=== PATIENT | male | born 1965 | race Caucasian/White ===

== ENCOUNTER 2023-12-10 13:29 | Outpatient (OUT) | payer OTHER, SELFPAY ==
--- NOTE | 2023-12-10 13:36 | ECG_ITS ---
[facility] Test Date: 2023-12-10 Pat Name: MARIA ANTONIA CARTER Department: Room: - Gender: Male Opening [employer]: : 1965 Requested By: NICHOLAS REDDY Order Number: [id number] Reading MD: ERICA GRUBER Measurements Intervals [place] Rate: 71 P: 71 MT: 174 QRS: 76 QRSD: 101 T: 66 QT: 384 QTc: 418 Interpretive Statements SINUS RHYTHM No previous ECG available for comparison Electronically Signed On 12-10-2023 19:00:46 EDT by ERICA GRUBER
--- NOTE | 2023-12-10 14:13 | PM.PRESUREVA ---
History of Present Illness History of Present Illness Chief complaint: BPH with obst Narrative: Patient presents for preadmission testing. Please see HPI from Dr. Abreu dated December 03, 2023. Review of Systems ROS Narrative REVIEW OF SYSTEMS: Negative except as stated in HPI, ten or more systems reviewed. Constitutional: No fever, chills, weakness ENT: No sore throat or epistaxis Cardiovascular: No edema, chest pain, or palpitations Respiratory: No shortness of breath, cough, or wheezing Musculoskeletal: No joint pain or swelling Gastrointestinal: No abdominal pain, constipation, diarrhea, or vomiting Genitourinary: No dysuria or hematuria Neurological: No numbness, tingling, weakness, or headache Psychiatric: No mood changes [facility] Medical History (Updated 12/10/23 @ 13:50 by Cecilia Mckeon NP) GERD (gastroesophageal reflux disease) ?K21.9 - Gastro-esophageal reflux disease without esophagitis (ICD-10) Mitral valve prolapse ?I34.1 - Nonrheumatic mitral (valve) prolapse (ICD-10) Heart murmur ?R01.1 - Cardiac murmur, unspecified (ICD-10) PVC (premature ventricular contraction) ?I49.3 - Ventricular premature depolarization (ICD-10) Near syncope ?R55 - Syncope and collapse (ICD-10) Diabetes ?E11.9 - Type 2 diabetes mellitus without complications (ICD-10) Heart palpitations ?R00.2 - Palpitations (ICD-10) Nocturia ?R35.1 - Nocturia (ICD-10) Herniated lumbar intervertebral disc ?M51.26 - Other intervertebral disc displacement, lumbar region (ICD-10) Back pain ?M54.9 - Dorsalgia, unspecified (ICD-10) Prostatitis ?N41.9 - Inflammatory disease of prostate, unspecified (ICD-10) Incomplete bladder emptying ?R33.9 - Retention of urine, unspecified (ICD-10) Urinary hesitancy ?R39.11 - Hesitancy of micturition (ICD-10) Symptom of bladder outlet obstruction ?N32.0 - Bladder-neck obstruction (ICD-10) Hyperlipidemia ?E78.5 - Hyperlipidemia, unspecified (ICD-10) Elevated PSA ?R97.20 - Elevated prostate specific antigen [PSA] (ICD-10) TIA (transient ischemic attack) ?G45.9 - Transient cerebral ischemic attack, unspecified (ICD-10) BPH with obstruction/lower urinary tract symptoms ?N40.1 - Benign prostatic hyperplasia with lower urinary tract symptoms (ICD-10) ?N13.8 - Other obstructive and reflux uropathy (ICD-10) Surgical History (Updated 12/10/23 @ 13:50 by Cecilia Mckeon NP) History of esophagogastroduodenoscopy (EGD) ?Z98.890 - Other specified postprocedural states (ICD-10) History of appendectomy ?Z90.49 - Acquired absence of other specified parts of digestive tract (ICD-10) H/O colonoscopy ?Z98.890 - Other specified postprocedural states (ICD-10) H/O cystoscopy (12/03/23) ?Z98.890 - Other specified postprocedural states (ICD-10) Family History (Updated 12/10/23 @ 13:50 by Cecilia Mckeon NP) Other Cancer Family history of hypertension Social History (Updated 12/10/23 @ 13:45 by Cecilia Mckeon NP) Within the past year, how often did you have a drink containing alcohol: 2-3 times a week Smoking status: Former smoker Non-prescribed substance use: denies use 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[employer] Highest level of school completed/degree received: high school graduate Meds Home Medications and Allergies Home Medications ?Medication ?Instructions ?Recorded ?Confirmed ?Type aspirin 81 mg tablet,delayed 81 mg PO DAILY 12/10/23 12/10/23 History release (Adult Aspirin Regimen) doxycycline hyclate 100 mg capsule 100 mg PO BID 12/10/23 12/10/23 History empagliflozin 25 mg tablet 25 mg PO DAILY 12/10/23 12/10/23 History (Jardiance) metformin 500 mg tablet 500 mg PO TID 12/10/23 12/10/23 History rosuvastatin 20 mg tablet 20 mg PO DAILY 12/10/23 12/10/23 History tamsulosin 0.4 mg capsule (Flomax) 0.4 mg PO DAILY 12/10/23 12/10/23 History vitamin B complex 1 tab PO DAILY 12/10/23 12/10/23 History Allergies Allergy/AdvReac Type Severity Reaction Status Date / Time Penicillins AdvReac Vomiting Verified 12/10/23 13:39 Exam Narrative Exam Narrative: Constitutional: Awake, alert, comfortable, well-appearing, nontoxic, interactive, vital signs as charted Head: Normocephalic, atraumatic Neck: Supple, normal appearance, normal range of motion, no meningeal signs, no lymphadenopathy Respiratory: No respiratory distress, breath sounds clear Cardiovascular: Regular rate and rhythm, strong and regular heart tones Abdomen: Nontender, normal bowel sounds, soft, no CVA tenderness Musculoskeletal: Normal gait, no swelling or edema Skin: No rashes or induration, no lesions, only visible skin inspected Neuro: No neurological deficits, normal sensation Psychiatric: Oriented ?3, normal affect Assessment and Plan Assessment and Plan (1) BPH with obstruction/lower urinary tract symptoms: Plan Cystoscopy, TURP scheduled with Dr. Abreu December 26, 2023.
[2023-12-10 14:27] LABS: Anion Gap 11.1; BUN Creatinine Ratio 12.4; Calcium 8.9 mg/dL (8.5-10.1); Carbon Dioxide 26.7 mmol/L (21.0-32.0); Chloride 101 mmol/L (98-107); Estimated GFR (African America >60 (>=60 mL/min/1.73m^2); Estimated GFR (Non-African Ame >60 (>=60 mL/min/1.73m^2); Glucose 217 mg/dL (74-106); Potassium 3.8 mmol/L (3.5-5.1); Sodium 135 mmol/L (136-145)
[2023-12-10 14:30] LABS: Basophils Absolute Auto 0.1 10^3/uL (0.0-0.1); Basophils Percent Auto 0.9 % (0.2-2.0); Eosinophils Absolute Auto 0.3 10^3/uL (0.0-0.7); Eosinophils Percent Auto 3.5 % (0.9-7.0); Hematocrit 42.7 % (42.0-54.0); Hemoglobin 15.2 g/dL (14.0-18.0); Immature Granulocytes Abs Auto 0.02 10^3/uL (0.00-0.03); Immature Granulocytes Pct Auto 0.2 % (0.0-0.5); Lymphocytes Absolute Auto 2.2 10^3/uL (1.2-3.8); Lymphocytes Percent Auto 26.4 % (20.5-60.0); Mean Corpuscular HGB Conc 35.6 g/dL (29.9-35.2); Mean Corpuscular Hemoglobin 33.1 pg (25.9-34.0); Mean Platelet Volume 9.4 fL (9.5-13.5); Monocytes Absolute Auto 0.7 10^3/uL (0.3-0.8); Platelet Count 172 10^3/uL (150-450); Red Blood Count 4.59 10^6/uL (4.70-6.10); Red Cell Distribution Width 12.1 % (11.0-15.0); White Blood Count 8.2 10^3/uL (4.0-11.0)
[2023-12-10 14:38] LABS: INR 0.97; Partial Thromboplastin Time 28.3 sec (22.3-36.2); Prothrombin Time 10.3 sec (9.0-11.6)
== END 2023-12-10 13:30 | disposition home or self-care (01) ==
LOC: PST 13:33
PROVIDERS: Family Provider Emergency Medicine; PCP Internal Medicine; Visit Provider Urology
DX: Z01.810 Encounter for preprocedural cardiovascular examination (principal); Z01.812 Encounter for preprocedural laboratory examination; Z01.818 Encounter for other preprocedural examination; N40.1 Benign prostatic hyperplasia with lower urinary tract symptoms; N13.8 Other obstructive and reflux uropathy
CPT/HCPCS: 80048; 85025; 85610; 85730; 93005; G0463

== ENCOUNTER 2023-12-26 12:56 | Day surgery (SDC) | payer OTHER, SELFPAY ==
[2023-12-10 14:00] VITALS: BP 132/81; PULSE 69; TEMP 36.4; O2SAT 98; BMI 27.3
[2023-12-26] VITALS (10 sets, daily range): BP systolic 103–143; BP diastolic 65–91; PULSE 66–90; TEMP 36.2–37; O2SAT 95–98; BMI 26.3
--- OUTSIDE RECORDS SUMMARY | 2023-12-26 13:02 | XMS_ITS | CCD ---
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 Name Role Phone Juve Garza Primary Care Provider [phone] Christoph Wahl Attending Provider Maria Antonia FELIX Primary Care Physician [phone] JEREMIAS TORO Attending Unavailable Juno REDDY Attending Unavailable Juno REDDY Referring Unavailable Juno REDDY Admitting Unavailable Maria Antonia FELIX Referring Unavailable Maria Antonia FELIX Admitting Unavailable JANETH, Maria Antonia Tellez Attending Unavailable JANETH, Maria Antonia Tellez Admitting Unavailable JANETH, Maria Antonia Tellez Attending Unavailable Jonatan Bowers Consulting Unavaila ble ALAKAI, Alaa Admitting Unavailable ALAHMAD, Kay Attending Unavailable MD Jonatan Bowers Consulting Unava ilJonatan Pires Consulting Unavaila ble Montrose, Gallito Consulting Unavailable Montrose, Gallito Consulting Unavailable Montrose, Gallito Consulting Unavailable Montrose, Gallito Consulting Unavailable Montrose, Gallito Consulting Unavailable Montrose, Gallito Consulting Unavailable Montrose, Gallito Consulting Unavailable Montrose, Gallito Consulting Unavailable Montrose, Gallito Consulting Unavailable Maria Antonia FELIX Admitting Unavailable Juno REDDY Attending Unavailable Emy Harrison Attending Unavailable Maria Antonia FELIX Referring Unavailable Juno REDDY Attending Unavailable Maria Antonia FELIX Attending Unavailable Maria Antonia FELIX Attending Unavailable Juno REDDY Attending Unavailable Juno REDDY Attending Unavailable Juno REDDY Referring Unavailable Juno REDDY Admitting Unavailable Unavailable Unavailable Unavailable Allergies Allergy Classification Reported Allergen(s) Allergy Type Date of Onset Reaction(s) Facility (16 sources) Penicillins; Translations: [penicillins] Allergy to substance 1 Vomiting (disorder) [facility] (1 source) Amoxicillin; Translations: [amoxicillin] Drug Allergy [facility] Repository Medications Current Medications Medication Drug Class(es) Dates Sig (Normalized) Sig (Original) aspirin 81 mg delayed release oral tablet (7 sources) Platelet Aggregation Inhibitor, Nonsteroidal Anti-inflammatory Drug Start: 04-20-2023 take 1 tablet by mouth once daily aspirin 81 mg Oral EC Tab 81 mg = 1 tab(s), Oral, Daily, Refills(s) 0 Start Date: 04/20/23 Status: Ordered cyclobenzaprine hydrochloride 10 mg oral tablet (7 sources) Muscle Relaxant Start: 01-06-2020 take 1 tablet by mouth three times daily as needed for muscle spasms cyclobenzaprine 10 mg Tab 10 mg = 1 tab(s), Oral, TID, PRN for spasm, # 50 tab(s), Refills(s) 0, Pharmacy: [id number], 177, cm, 01/06/20 14:45:00 EDT, Height/Length Dosing, 88.8, kg, 01/06/20 14:45:00 EDT, Weight Dosing Start Date: 01/06/20 Status: Ordered doxycycline hyclate 100 mg oral capsule (2 sources) Tetracycline-class Drug Start: 12-03-2023 take 1 capsule by mouth twice daily doxycycline hyclate 100 mg Cap 100 mg = 1 cap(s), Oral, BID, # 60 cap(s), Refills(s) 0, Pharmacy: [facility], 177, cm, 12/03/23 14:32:00 EDT, Height/Length Dosing, 79.2, kg, 12/03/23 14:32:00 EDT, Weight Dosing Start Date: 12/03/23 Status: Ordered empagliflozin 25 mg oral tablet (12 sources) Sodium-Glucose Cotransporter 2 Inhibitor Start: 08-18-2021 take 1 tablet by mouth once daily in the morning Jardiance 25 mg oral tablet 25 mg = 1 tab(s), Oral, qAM Start Date: 08/18/21 Status: Ordered ibuprofen 600 mg oral tablet (9 sources) Nonsteroidal Anti-inflammatory Drug Start: 11-04-2019 take 1 tablet by mouth every six hours as needed for pain ibuprofen 600 mg Tab 600 mg = 1 tab(s), Oral, q6hr, PRN as needed for pain Start Date: 11/04/19 Status: Ordered metFORMIN hydrochloride 500 mg oral tablet (15 sources) Biguanide Start: 05-30-2020 take 2 doses by mouth twice daily in the morning, then take 1 dose by mouth at bedtime Metformin Active 500 MG PO Twice daily May 30, 2020 8:59am 2 pills in AM 1 pill at HS Start: 02-24-2019 take 1 tablet by johnny th three times daily metformin 500 mg Tab 500 mg = 1 tab(s), Oral, TID, Refills(s) 0 Start Date: 02/24/19 Status: Ordered rosuvastatin calcium 20 mg oral tablet (12 sources) HMG-CoA Reductase Inhibitor Start: 08-18-2021 take 1 tablet by mouth once daily at bedtime Crestor 20 mg Tab 20 mg = 1 tab(s), Oral, Once a day (at bedtime) Start Date: 08/18/21 Status: Ordered tamsulosin hydrochloride 0.4 mg oral capsule (8 sources) alpha-Adrenergic Jessica Start: 07-12-2023 take 1 capsule by mouth once daily Flomax 0.4 mg Cap 0.4 mg = 1 cap(s), Oral, Daily, # 90 cap(s), Refills(s) 3, Pharmacy: [facility], 177, cm, 07/05/23 14:31:00 EDT, Height/Length Dosing, 79.2, kg, 07/05/23 14:31:00 EDT, Weight Dosing Start Date: 07/12/23 Status: Ordered Start: 04-20-2023 End: 04-20-2023 Flomax 0.4 mg Cap 0.4 mg = 1 cap(s), Cap, Oral, Start date 04/20/23 9:00:00 AM EST, 04/19/23 21:14:00 EST Start Date: 04/20/23 Stop Date: 04/20/23 Status: Completed Start: 07-23-2022 take 1 capsule by mo [facility] once daily Flomax 0.4 mg Cap 0.4 mg = 1 cap(s), Oral, Daily, # 30 cap(s), Refills(s) 11, Pharmacy: [id number], 177, cm, 07/23/22 9:21:00 EDT, Height/Length Dosing, 83.5, kg, 07/23/22 9:21:00 EDT, Weight Dosing Start Date: 07/23/22 Status: Ordered Completed/Discontinued Medications Medication Drug Class(es) Dates Sig (Normalized) Sig (Original) ciprofloxacin 500 mg oral tablet (2 sources) Quinolone Antimicrobial Start: 10-17-2023 take 1 tablet by mouth once daily Cipro 500 mg Tab 500 mg = 1 tab(s), Oral, Daily, Take 1 tablet the day before the procedure and 1 tablet after the procedure, # 2 tab(s), Refills(s) 0, Pharmacy: [facility], 177, cm, 09/27/23 14:39:00 EDT, Height/Length Dosing, 79.2, kg, 09/27/23 14:39:00 EDT, Weight Dosing Start Date: 10/17/23 Status: Ordered Insulin Lispro (2 sources) Insulin Analog Start: 04-20-2023 End: 04-20-2023 Insulin Lispro Sliding Scale 0-10 Unit(s), Injection-Insuli n, SubCutaneous, Start date 04/20/23 7:30:00 AM EST Start Date: 04/20/23 Stop Date: 04/20/23 Status: Completed Start: 04-19-2023 End: 04-19-2023 Insulin Lispro Sliding Scale 0-10 Unit(s), Injection-Insulin, SubCutaneous, Start date 04/19/23 4:30:00 PM EST Start Date: 04/19/23 Stop Date: 04/19/23 Status: Completed Problems Problem Classification Problem Date Documented Date Episodic/Chronic Anal and rectal conditions (2 sources) Rectal pain 02-24-2019 Episodic Cardiac dysrhythmias (15 sources) Palpitations; Translations: [Palpitations] Onset: 2 12-05-2020 Episodic Diabetes mellitus with complications (3 sources) Complication due to diabetes mellitus; Translations: [Type 2 diabetes mellitus with other specified complication] Onset: 2 Chronic Diabetes mellitus without complication (14 sources) Type 2 diabetes mellitus 02-24-2019 Chronic Diseases of mouth; excluding dental (6 sources) Lesion of oral mucosa; Translations: [Unspecified lesions of oral mucosa] Onset: 4 Episodic Disorders of lipid metabolism (17 sources) Mixed hyperlipidemia; Translations: [Mixed hyperlipidemia] Onset: 2 Chronic Esophageal disorders (2 sources) Gastroesophageal reflux disease; Translations: [Gastro-esophageal reflux disease without esophagitis] Chronic Genitourinary symptoms and ill-defined conditions (16 sources) Nocturia; Translations: [Poor stream of urine] 02-24-2019 Episodic Hyperplasia of prostate (18 sources) Benign prostatic hypertrophy with outflow obstruction; Translations: [Benign prostatic hyperplasia with lower urinary tract symptoms] Onset: 2 02-24-2019 Chronic Other circulatory disease (6 sources) History of transient ischemic attack; Translations: [Personal history of transient ischemic attack (TIA), and cerebral infarction without residual deficits] Onset: 4 Episodic Other connective tissue disease (2 sources) Spasm; Translations: [Other muscle spasm] Onset: 4 Episodic Other connective tissue disease (5 sources) Cramp in lower limb 07-05-2023 Episodic Other diseases of kidney and ureters (2 sources) Urinary tract obstruction; Translations: [Other obstructive and reflux uropathy] Onset: 4 Episodic Other nutritional; endocrine; and metabolic disorders (1 source) Disorder of bilirubin metabolism; Translations: [Other disorders of bilirubin metabolism] Onset: 4 Chronic Other nutritional; endocrine; and metabolic disorders (5 sources) Hyperbilirubinemia 07-05-2023 Chronic Other nutritional; endocrine; and metabolic disorders (7 sources) Overweight in adulthood with body mass index of 25 or more but less than 30; Translations: [Body mass index (BMI) 28.0-28.9, adult] Onset: 2 Episodic Other nutritional; endocrine; and metabolic disorders (6 sources) Overweight; Translations: [Overweight] Onset: 4 Episodic Other screening for suspected conditions (not mental disorders or infectious disease) (4 sources) Raised prostate specific antigen; Translations: [Elevated prostate specific antigen [PSA]] Onset: 4 Episodic Screening and history of mental health and substance abuse codes (14 sources) Ex-smoker 02-24-2019 Episodic Spondylosis; intervertebral disc disorders; other back problems (16 sources) Intervertebral disc prolapse; Translations: [Other intervertebral disc displacement, lumbar region] Onset: 4 Chronic Spondylosis; intervertebral disc disorders; other back problems (20 sources) Low back pain; Translations: [Spasm of muscle of lower back] 04-12-2021 Episodic Transient cerebral ischemia (1 source) Transient cerebral ischemia; Translations: [Transient cerebral ischemic attack, unspecified] Onset: Chronic Unclassified (14 sources) Patient encounter status 01-31-2021 Results Test Name Value Interpretation Reference Range Facility Main OR Intraoperative Recor don 12-03-2023 Main OR Intraoperative Record Main OR Intraoperative Record IntraOp Document Type FTURO Summary Primary Physician: Juno REDDY MD Finalized Date/Time: 12/03/23 15:04:46 Pt. Name: MARIA ANTONIA BALL Danielle Rahman/Sex: 1965 Male Med Rec #: [id number] Physician: Juno REDDY MD Financial #: [id number] Pt. Type: O Room/Bed: / Admit/Disch: 12/03/23 13:54:49 - Institution: Case Times FTURO Entry 1 Patient Times In Room 12/03/23 14:36:00 Out Room 12/03/23 14:57:00 Procedure Times Start 12/03/23 14:48:00 Stop 12/03/23 14:53:00 Anesthesia Times Last Modified By: Jody PEREZ, Raysa Zuniga 12/03/23 14:53:33 Case Attendance FTURO Entry 1 Entry 2 Entry 3 Case Attendee Juno REDDY MD, RN, Raysa Aldana CST, Chani Zuniga Role Performed Surgeon - Primary Melting Operator - Primary Scrub - Primary Time In 12/03/23 14:36:00 12/03/23 14:36:00 12/03/23 14:36:00 Time Out 12/03/23 14:57:00 12/03/23 14:57:00 12/03/23 14:57:00 Procedure CYSTOSCOPY LOCAL(.) CYSTOSCOPY LOCAL(.) CYSTOSCOPY LOCAL(.) Comments Last Modified By: Jody PEREZ, Raysa Vera RN, Raysa Vera RN, Raysa Zuniga 12/03/23 Clementine Zuniga 12/03/23 Clementine Zuniga 12/03/23 14:53:37 14:53:37 14:53:37 Surgical Procedures FTURO Entry 1 Procedure Description Procedure CYSTOSCOPY LOCAL Modifiers . Surgeon Description CYSTOSCOPY Primary Procedure Yes Primary Surgeon Juno REDDY MD Start 12/03/23 14:48:00 Stop 12/03/23 14:53:00 Anesthesia Type Local Surgical Service Urology Wound Class 2 - Clean-Contaminated Last Modified By: Raysa Vera RN 12/03/23 14:53:36 General Case Data FTURO Pre-Care Text: Classifies surgical wound, implements aseptic technique, initiates traffic control Entry 1 Case Information OR URO 1 FT Case Level None Wound Class 2 - Clean-Contaminated Specialty Urology Preop Diagnosis BPH WITH OBSTRUCTION, Postop Same As Preop Yes NOCTURIA, ELEVATED PSA Postop Diagnosis BPH WITH OBSTRUCTION, Outcomes Met? Yes NOCTURIA, ELEVATED PSA Last Modified By: Raysa Vera RN 12/03/23 14:37:20 Post-Care Text: The patient is free from signs and symptoms of infection EU IntraOp - FTURO Pre-Care Text: Implements protective measures prior to operative or invasive procedure, confirms identity before the operative or invasive procedure, verifies operative procedure, surgical site, and laterality Entry 1 EU Perioperative Protocols Procedure(s) CYSTOSCOPY LOCAL(.) Patient Identity Birthday Verified (select at least 2): Consents / H and P H&P, Surgery/Procedure Operative Site N/A Verified Consent Marking Verified Surgical Site Yes Laterality Verified n/a Verified Procedure Verified Yes Correct Patient Yes Position Verified Availability Equipment, Medication Time Out BARRY FELDMAN, Juno Gomes, Verified (If Participants Jody PEREZ, Raysa Applicable) Jovan Strickland CST, Kimberly A Time Out Complete 12/03/23 14:47:00 Allergies Reviewed? Yes Allergies Reviewed Self/Patient With Body Position Supine Prep Area PENIS Prep Agents Betadine Solution Skin. Condition Unable to Visualize Description PARTIALLY CLOTHED Additional None Specimens Collected Vitals - EU Blood Pressure 130/79 Pulse 86 bpm Respirations 18 br/min SPO2 97 % I&O - EU Outcomes Met? Yes Last Modified By: Raysa Vera RN 12/03/23 14:47:36 Post-Care Text: The patient is free from signs and symptoms of injury caused by extraneous objects Sign Out FTURO Entry 1 Before Patient Leaves OR Nurse verbally Yes Nurse verbally Yes confirms with the confirms with the team the name of team that the procedure(s) instrument, sponge, recorded and needle counts are correct (or N/A) Nurse verbally n/a Nurse verbally n/a confirms with the confirms with the team how the team whether there specimen is labeled are any equipment (including patient problems to be name), if applicable addressed Sign Out Complete 12/03/23 14:53:00 Last Modified By: Raysa Vera RN 12/03/23 14:53:35 Case Comments Finalized By: Raysa Vera RN Document Signatures Signed By: Rasya Vera RN 12/03/23 14:53 Raysa Vera RN 12/03/23 15:04 [facility] Main OR Preoperative Recordo n 12-03-2023 Main OR Preoperative Record Main OR Preoperative Record Holding Area Document Type FTURO Summary Primary Physician: Juno REDDY MD Finalized Date/Time: 12/03/23 14:49:34 Pt. Name: MARIA ANTONIA BALL Danielle Shelton./Sex: 1965 Male Med Rec #: [id number] Physician: Juno REDDY MD Financial #: [id number] Pt. Type: O Room/Bed: / Admit/Disch: 12/03/23 13:54:49 - Institution: Case Times Holding FTURO Pre-Care Text: Verifies consent for planned procedure, identifies individual values and wishes concerning care, includes family members in perioperative teaching Secures patient's records' belongings, and valuables, maintains patient's dignity and privacy, and maintains patient confidentiality Entry 1 In Holding 12/03/23 14:28:00 Outcomes Met? Yes Last Modified By: Esther Sanders LPN 12/03/23 14:29:05 Post-Care Text: The patient participates in decisions affecting his or her perioperative plan of care The patient's right to privacy is maintained Surgery Checklist FTURO Entry 1 Patient Birthday, ID Band Procedure History and Physical, Identification: Check, Patient Verification: Surgical Consent, With Participation Patient NPO after Midnight: n/a Limitations: up ad juanita Complaints of Pain: No Skin Integrity Intact, [place], Warm, & Dry Vitals - EU Blood Pressure 130/79 Pulse 86 bpm Respirations 18 br/min SPO2 97 % Additional None RN Reviewed Yes Specimens Collected Last Modified By: Raysa Vera RN 12/03/23 14:36:43 Finalized By: Raysa Vera RN Document Signatures Signed By: Tommy Esther LOPES [place] 12/03/23 14:31 Raysa Vera RN 12/03/23 14:36 Jody PEREZ, Raysa Zuniga 12/03/23 14:49 [facility] Operative Reporton Operative Report Operative Report Patient: MARIA ANTONIA BALL Age: 58 years Sex: Male : 1965 Associated Diagnoses: None Author: Juno REDDY MD Procedure Operative Information Details: Date/ Time: 12/03/2023 15:05:00. Pre-Op Dx: BPH w/ LUTS - N40.1, Nocturia - R35.1, Incomplete Bladder Emptying - R39.14, Weak stream, Hesitancy. Post-Op Dx: Same. Anesthesia Type: Local. Procedure: Local Cystoscopy. Complications: None. Risks/Benefits/Inform ed Consent: Surgical risks, benefits, details of the procedure have been explained to the patient, Full informed consent has been obtained. Intraoperative Information Prepped: Patient is brought back to the endoscopy suite, Patient is placed in supine position, Patient prepped in the usual fashion with Betadine solution, 2% Xylocaine Jelly is placed per Urethra, After waiting several minutes the Cystoscope is introduced. The Urethra is: Normal. The Prostatic Urethra is: Obstructed, Friable. Obstructing lateral lobes. Moderate median lobe. The Bladder is: Abnormal, Trabeculated (Severe (3), Thick trabeculation with deep diverticuli diffusely. No bladder tumors). The ureteral orifices: Show efflux of clear urine. Devices Implanted: None. Removal: Cystoscope is removed, The patient tolerated it well. Postoperative Information Discharge: Patient is discharged home with antibiotic coverage, Follow up arranged. He will start doxycycline 100 mg twice daily for 1 month. He will get urodynamics testing done. We will plan for a TURP in about a month or so.. [facility] Comment on above: Result Comment: Elec tronically Signed By: Juno REDDY MD\.br\Date and Time Signed: 12/03/23 15:07 EDT Reminderson 10-09-2023 Reminders Reminders From: Trina Melchor To: LAZARO Harrison; Sent: 10/09/2023 15:02:55 EDT Show up: 04/10/2024 14:02:00 EST Subject: APPT/PSA Due Date/Time: 06/08/2024 15:02:00 EDT Pt needs scheduled for f/u w/PSA in June 2024. [facility] Urology Office/Clinic Noteon 09-30-2023 Urology Office/Clinic Note Urology Office/Clinic Note Chief Complaint new patient HPI Staff 58 year old male referred by Dr. Felix for BPH w/LUTS. Patient last seen IO 02/24/19 due to Nocturia, bph with luts, Weak urine stream, Rectum pain PSA 3.0 done 06/22/23 S/P cysto 03/18/2019 Patient has been on flomax for years, states he has not noticed a big difference with urination, does experience dizziness. Stated that he did try to stop it a few years ago and got to the point where one night he could not urinate at all almost. Restarted flomax and did help him empty. Dysuria: no Incomplete bladder emptying: no Hematuria: no Frequency: no Urgency: no Nocturia:2x Stream: slow weak stream mostly at night Leaking: no Post void dripping: no Wearing pads/ Depends: no Urge incontinence: no Stress incontinence: no Incontinence without Sensory Awareness: no Abdominal pain: no Flank pain: no Sexual complaints: no History of Present Illness I have reviewed and verified the staff HPI to be accurate for this encounter. Portions of this record may have been created with voice recognition artificial intelligence software, specifically [employer] and or [employer]. Substitutions may have occurred due to the inherent limitations of voice recognition and artificial intelligence software. Review of Systems PHQ Score Initial Depression Screen Score: 0 SCORE Physical Exam Vitals & Measurements HR: 74(Peripheral) BP: 140/82 HT: 70 in HT: 177 cm WT: 79.2 kg WT: 174.24 lb BMI: 25.28 General: Well developed, well nourished, in no acute distress. Genitourinary: Flank Pain: none. Bladder: nonpalpable. Penis: normal shaft, normal glans. Prostate: normal prostate, no hard nodule observed. Assessment/Plan former [facility] pt, last OV 02/24/19 ARUN 21 1. Elevated PSA (R97.20: Elevated prostate specific antigen [PSA]) PSA: 06/23/18 - 2.72 03/16/19 - 2.9 & 38% 06/28/21 - 2.3 06/22/23 - 3.0 Denies family hx of prostate CA. Has never had MRI or bx in the past. Today I reviewed the patients past history including voiding symptoms, PSA history. I discussed the production of PSA by the prostate gland as well as common causes of elevated serum PSA including infection, inflammation, BPH and prostate cancer. He understood that his PSA level may also be falsely elevated due to any manipulation/instrume ntation around the time of a PSA draw. I discussed the absolute value of PSA as well as PSA velocity and age specific PSA and the implications with the patient. Although PSA has been overall stable over the years, it is higher than I would expect for his age. I gave the patient management options moving forward and explained the risks/benefits of each one: -Continue monitoring PSA with repeat in 6-12 months -Obtain additional biomarkers such as select MDX -Obtain prostate MRI to evaluate for suspicious lesions. He understands MRIs may miss malignancy in 12-16% of patients. Pt does agree to select MDX at this time. LURDES today benign. -Select MDX, call pt w/ results. If pos, will proceed w/ MRI. If neg, recheck PSA in June 2024 when due. 2. BPH with obstruction/lower urinary tract symptoms (N40.1: Benign prostatic hyperplasia with lower urinary tract symptoms) s/p cysto by [facility] 03/18/2019 - prostatic urethra w/ moderate hypertrophy, mild obstruction. Mild (1) trabeculation IPSS 11, moderate sxs of BPH. Notices weak stream the most. QoL 6 Has been taking tamsulosin 0.4 mg QD for many years. Does feel that it makes him slightly lightheaded. He didn't think it was helping w/ his sxs, but then stopped for a period of time and had difficulty emptying. We did discuss possibility of increasing dose to twice daily. However, given that he does have some mild lightheadedness with daily dosing, would not recommend this. Patient does inquire about prostate shrinking medications. Discussed use, side effects. We discussed male urologic anatomy including the prostate and how this is likely contributing to his urinary symptoms. We discussed how potential prostate obstruction affects long-term bladder health and compliance. We discussed alpha-jessica medications to help with urinary symptoms, possible side effects. I did advise patient that these medications do not protect the bladder while alleviating some urinary symptoms. In order to assess degree of bladder outlet obstruction and bladder health, discussed further evaluation with cystoscopy. We did briefly discuss prostate procedures such as MIPPs (which he does inquire about) vs TURP, patient was provided with [employer] and [facility] pamphlets. The risks and benefits for cystoscopy have been discussed. The risks include bleeding, infection, and irritation of the bladder and urinary channel, among others. The patient, after being informed of procedural details and after questions have been answered, wishes to proceed. Will order Local anesthesia. -Continue tamsulosin -Schedule cystosco (more content not included)... [facility] Comment on above: Result Comment: Elec tronically Signed By: SYDNEY Harrison APRN, Emy Lawson\.br\Date and Time Signed: 09/30/23 07:10 EDT US Liveron 07-13-2023 US Liver Exam Date/Time: 07/12/2023 07:00 EDT Reason for Exam: E80.6;Other (please specify) Report IMPRESSION: NEGATIVE MILDLY LIMITED RUQ ULTRASOUND. EXAM: US Liver DATE: 07/12/2023 6:45 AM CLINICAL HISTORY: E80.6. COMPARISON: Lumbar spine MRI 12/21/2019. TECHNIQUE: Transabdominal ultrasound of the right upper quadrant was performed. FINDINGS: The study is mildly limited by the patient's body habitus. The gallbladder, visualized liver, pancreas, right kidney, and great vessels are unremarkable. There is no significant gallbladder distention, wall thickening, calculi, sludge, pericholecystic fluid, biliary dilatation, or ascites identified. The common duct measures approximately 4 to 5 mm at the derrick hepatis. Ordering Provider: Maria Antonia FELIX FINAL REPORT Dictated: 07/13/2023 5:20 pm Alfie Young MD Signed (Electronic Signature): 07/13/2023 5:20 pm Signed by: Alfie Young MD Transcribed by: MILAGRO Technologist: HW [facility] Consent for Treatmenton 050 Consent for Treatment [id number] .00TIFF [facility] Physician Referralon 024 Physician Referral [id number] #1.00TIFF [facility] Physician Referral [id number] #1.00TIFF [facility] Physician Referral [id number] #1.00TIFF [facility] Ambulatory Visit Summaryon 0 07-05-2023 Ambulatory Visit Summary EMERYMARIA ANTONIA LOGAN :1965 Visit Date:07/05/2023 Ambulatory Visit Instructions Your Diagnosis Type 2 diabetes mellitus with hyperlipidemia Hyperlipidemia, mixed BPH with obstruction/lower urinary tract symptoms Preventative health care BMI 25.0-25.9,adult Over weight Leg cramps History of TIA (transient ischemic attack) Oral mucosal lesion Hyperbilirubinemia Your Care Team Attending Physician - Maria Antonia FELIX MD Primary Care Physician - Maria Antonia FELIX MD This Is Your Medications List Contact prescribing physician if questions or concerns aspirin (aspirin 81 mg Oral EC Tab) empagliflozin (Jardiance 25 mg oral tablet) metformin (metformin 500 mg Tab) rosuvastatin (Crestor 20 mg Tab) tamsulosin (Flomax 0.4 mg Cap) [Image Removed: STOP]Stop taking these medications Misc Prescription ([facility] Prescription) ibuprofen (ibuprofen 600 mg Tab) Procedures Performed Injection of facet joint using fluoroscopic guidance (12/13/2020), Injection of nerve root of lumbar spine using fluoroscopic guidance (10/04/2020), Epidural injection of lumbar spine using fluoroscopic guidance (04/19/2020), Appendectomy, Colonoscopy. Discharge Vitals Temperature (Oral) 36.4 ?C Heart Rate (Peripheral) 80 Blood Pressure 128/62 Height 177 cm Height 70 in Weight 79.2 kg Weight 174.24 lb BMI 25.28 What to do next You Need to Schedule the Following Appointments Follow Up with JANETH FELDMAN, Maria Antonia Tellez, MED When: In 1 year Where: [facility] [address], [place] [address]- You Need to Complete the Following US Liver, 07/05/23, Routine, Order for future visit, Transport Mode: Ambulatory, Reason: Other (please specify), No, Hyperbilirubinemia, pp_set_radiology_subs pecialty, [facility] - [facility] Someone Will Contact You Regarding These Appointments [facility] External Ambulatory Referral, Neurology, 07/05/23 14:53:00 EDT, History of TIA (transient ischemic attack) [facility] External Ambulatory Referral, ENT, 07/05/23 15:02:00 EDT, Oral mucosal lesion Medications What How Much When Why Instructions Unchanged aspirin (aspirin 81 mg Oral EC Tab) 1 Tablets By Mouth Every day Contact prescribing physician if questions or concerns Unchanged empagliflozin (Jardiance 25 mg oral tablet) 1 Tablets By Mouth Once a day (in the morning) Contact prescribing physician if questions or concerns Unchanged metformin (metformin 500 mg Tab) 1 Tablets By Mouth 3 times a day Contact prescribing physician if questions or concerns Unchanged rosuvastatin (Crestor 20 mg Tab) 1 Tablets By Mouth Once a day (at bedtime) Contact prescribing physician if questions or concerns Unchanged tamsulosin (Flomax 0.4 mg Cap) 1 Capsules By Mouth Every day BPH with obstruction/lower urinary tract symptoms Contact prescribing physician if questions or concerns What How Much When Comments Stop Taking ibuprofen (ibuprofen 600 mg Tab) 1 Tablets By Mouth Every 6 hours as needed for as needed for pain Stop Taking Misc Prescription ([facility] Prescription) See instructions One Touch Verio Test Strips tests bid Dx: E11.9 Allergies penicillins (Vomiting) Problems Ongoing - Any problem that you are currently receiving treatment for. BMI 25.0-25.9,adult BPH with obstruction/lower urinary tract symptoms Former smoker Herniated lumbar intervertebral disc History of TIA (transient ischemic attack) Hyperbilirubinemia Hyperlipidemia, mixed Leg cramps Low back pain Lumbar paraspinal muscle spasm Nocturia Oral mucosal lesion Over weight Palpitations Preventative health care Type 2 diabetes mellitus with hyperlipidemia Patient Survey You may receive a survey via text or e-mail asking about your office visit. Please share your experience with us by completing your survey. We appreciate your feedback and thank you for choosing us for your care. Education Materials Diabetes Mellitus and Exercise Exercising regularly is important for overall health, especially for people who have diabetes mellitus. Exercising is not only about losing weight. It has many other health benefits, such as increasing muscle strength and bone density and reducing body fat and stress. This leads to improved fitness, flexibility, and endurance, all of which result in better overall health. What are the benefits of exercise if I have diabetes? Exercise has many benefits for people with diabetes. They include: ? Helping to lower and control blood sugar (glucose). ? Helping the body to respond better to the hormone insulin by improving insulin sensitivity. ? Reducing how much insulin the body needs. ? Lowering the risk for heart disease by: ? Lowering bad cholesterol and triglyceride levels. ? Increasing good cholesterol levels. ? Lowering blood pressure. ? Lowering blood glucose levels. What is my activity plan? Your health care provider or certifie (more content not included)... [facility] Office/Clini c Noteon 07-05-2023 Family Medicine Office/Clinic Note Chief Complaint pt here for yearly. 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 He has been feeling well. He has DM and monitors at home. He also sees endo. He has occasional cramping in his feet. Usually when he is sitting in his recliner. He gets cramps in his calves sleeping at night. In April he had left sided numbness and went to the ED. He was seen by neurology work up was negative. he is on asa now. He has BPH and is on Flomax. Sometimes he gets lightheaded if he stands up. Review of Systems PHQ Score Initial Depression Screen Score: 0 SCORE Physical Exam Vitals & Measurements T: 36.4 ?C(Oral) HR: 80(Peripheral) BP: 128/62 SpO2: 98% HT: 70 in HT: 177 cm WT: 79.2 kg WT: 174.24 lb BMI: 25.28 General: Well developed, well nourished, in no acute distress Eyes: Pupils equal, round, and reactive to light. Conjunctivae and sclerae normal, and extraocular movements intact Ears: TM clear, grossly normal hearing Nose: No deformity, discharge, inflammation, or lesions Mouth: _1 mm lesion on r roof of mouth Neck: Neck supple. No lymphadenopathy. Trachea midline. No thyroid, masses, tenderness, or enlargement noted. No bruit. Lungs: Normal respiratory effort and clear to auscultation Cardio: Regular rate and rhythm, normal S1 and S2, no murmur, no rub Abdomen: Soft, non-distended, non-tender Musculoskeletal: No joint swelling or synovitis noted Extremity: No clubbing, cyanosis or edema. Neurologic: CN 2-12 intact, no focal motor or sensory defects noted. Skin: No rashes, ulcerations, or suspicious lesions Mental Status: Alert and oriented x3. Normal mood and affect Assessment/Plan 1. Type 2 diabetes mellitus with hyperlipidemia (E11.69: Type 2 diabetes mellitus with other specified complication) Hgb A1C %: 7.5 % High (06/22/23 08:10:00) stay on Jardiance and metformin work on diet and exercise sees endo also 2. Hyperlipidemia, mixed (E78.2: Mixed hyperlipidemia) Chol: 142 mg/dL (06/22/23 08:10:00) HDL: 46 mg/dL (06/22/23 08:10:00) LDL Direct: 86 mg/dL (06/22/23 08:10:00) Tri mg/dL (06/22/23 08:10:00) VLDL: 17 mg/dL (06/22/23 08:10:00) stay on rosuvastatin 3. BPH with obstruction/lower urinary tract symptoms (N40.1: Benign prostatic hyperplasia with lower urinary tract symptoms) He is on Flomax but has side effects will refer to urology Ordered: [facility] [place] Internal Ambulatory Referral 4. Preventative health care (Z00.00: Encounter for general adult medical examination without abnormal findings) 5. BMI 25.0-25.9,adult (Z68.25: Body mass index [BMI] 25.0-25.9, adult) The standard range for ages 18 and older is >=18.5 and < 25 kg/m2. Your BMI today was above this range, this falls in the overweight to obese category and there are medical benefits to weight loss. We can offer counselling, referral, and/or medical support in addressing this problem. Your BMI and weight management will be followed at subsequent visits. 6. Over weight (E66.3: Overweight) 7. Leg cramps (R25.2: Cramp and spasm) try magnesium otc 8. History of TIA (transient ischemic attack) (Z86.73: Personal history of transient ischemic attack (TIA), and cerebral infarction without residual deficits) stay on asa follow with neurology. Ordered: [facility] External Ambulatory Referral 9. Oral mucosal lesion (K13.70: Unspecified lesions of oral mucosa) small on roof of mouth. refer to ENT to evaluate Ordered: [facility] External Ambulatory Referral 10. 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 will monitor LFTs are normal Ordered: US Liver Follow-up With When Contact Information JANETH FELDMAN, Maria Antonia Tellez, MONIQUE In 1 year [facility] [address], [place] [address]- Additional Instructions: Patient Education Diabetes Mellitus and Exercise Problem List/Past Medical History Ongoing BMI 25.0-25.9,adult BPH with obstruction/lower urinary tract symptoms Former smoker Herniated lumbar intervertebral disc History of TIA (transient ischemic attack) Hyperbilirubinemia Hyperlipidemia, mixed Leg cramps Low back pain Lumbar paraspinal muscle spasm Nocturia Oral mucosal lesion Over weight Palpitations Preventative health care Type 2 diabetes mellitus with hyperlipidemia Historical No qualifying data Procedure/Surgical History Injection of facet joint using fluoroscopic guidance (12/13/2020), Injection of nerve root of lumbar spine using fluoroscopic guidance (10/04/2020), Epidural injection of lumbar spine using fluoroscopic guidance (04/19/2020), Appendectomy, Colonoscopy. Medications aspirin 81 mg Oral EC Tab, 81 mg= 1 tab(s), Oral, Daily Crestor 20 mg Tab, 20 mg= 1 tab(s), Oral, Once a day (at bedtime) Flomax 0.4 mg Cap, 0.4 mg= 1 cap( (more content not included)... [facility] Comment on above: Result Comment: Elec tronically Signed By: JANETH FELDMAN, Maria Antonia Tellez\.br\Date and Time Signed: 07/05/23 15:09 EDT Patient Educationon 07-05-19 Patient Education Endocrinology Diabetes Mellitus and Exercise Exercising regularly is important for overall health, especially for people who have diabetes mellitus. Exercising is not only about losing weight. It has many other health benefits, such as increasing muscle strength and bone density and reducing body fat and stress. This leads to improved fitness, flexibility, and endurance, all of which result in better overall health. What are the benefits of exercise if I have diabetes? Exercise has many benefits for people with diabetes. They include: ? Helping to lower and control blood sugar (glucose). ? Helping the body to respond better to the hormone insulin by improving insulin sensitivity. ? Reducing how much insulin the body needs. ? Lowering the risk for heart disease by: ? Lowering bad cholesterol and triglyceride levels. ? Increasing good cholesterol levels. ? Lowering blood pressure. ? Lowering blood glucose levels. What is my activity plan? Your health care provider or certified orthotic fitter can help you make a plan for the type and frequency of exercise that works for you. This is called your activity plan. Be sure to: ? Get at least 150 minutes of medium-intensity or high-intensity exercise each week. Exercises may include brisk walking, biking, or water aerobics. ? Do stretching and strengthening exercises, such as yoga or weight lifting, at least 2 times a week. ? Spread out your activity over at least 3 days of the week. ? Get some form of physical activity each day. ? Do not go more than 2 days in a row without some kind of physical activity. ? Avoid being inactive for more than 90 minutes at a time. Take frequent breaks to walk or stretch. ? Choose exercises or activities that you enjoy. Set realistic goals. ? Start slowly and gradually increase your exercise intensity over time. How do I manage my diabetes during exercise? Monitor your blood glucose ? Check your blood glucose before and after exercising. If your blood glucose is: ? 240 mg/dL (13.3 mmol/L) or higher before you exercise, check your urine for ketones. These are chemicals created by the liver. If you have ketones in your urine, do not exercise until your blood glucose returns to normal. ? 100 mg/dL (5.6 mmol/L) or lower, eat a snack containing 15?20 grams of carbohydrate. Check your blood glucose 15 minutes after the snack to make sure that your glucose level is above 100 mg/dL (5.6 mmol/L) before you start your exercise. ? Know the symptoms of low blood glucose (hypoglycemia) and how to treat it. Your risk for hypoglycemia increases during and after exercise. Follow these tips and your health care provider's instructions ? Keep a carbohydrate snack that is fast-acting for use before, during, and after exercise to help prevent or treat hypoglycemia. ? Avoid injecting insulin into areas of the body that are going to be exercised. For example, avoid injecting insulin into: ? Your arms, when you are about to play tennis. ? Your legs, when you are about to go jogging. ? Keep records of your exercise habits. Doing this can help you and your health care provider adjust your diabetes management plan as needed. Write down: ? Food that you eat before and after you exercise. ? Blood glucose levels before and after you exercise. ? The type and amount of exercise you have done. ? Work with your health care provider when you start a new exercise or activity. He or she may need to: ? Make sure that the activity is safe for you. ? Adjust your insulin, other medicines, and food that you eat. ? Drink plenty of water while you exercise. This prevents loss of water (dehydration) and problems caused by a lot of heat in the body (heat stroke). Where to find more information ? [place] [employer]: www.diabetes.org Summary ? Exercising regularly is important for overall health, especially for people who have diabetes mellitus. ? Exercising has many health benefits. It increases muscle strength and bone density and reduces body fat and stress. It also lowers and controls blood glucose. ? Your health care provider or certified orthotic fitter can help you make an activity plan for the type and frequency of exercise that works for you. ? Work with your health care provider to make sure any new activity is safe for you. Also work with your health care provider to adjust your insulin, other medicines, and the food you eat. This information is not intended to replace advice given to you by your health care provider. Make sure you discuss any questions you have with your health care provider. Document Revised: 11/23/2019 Document Reviewed: 11/23/2019 [email or web address] Patient Education ? 2022 [employer]. [facility] Clipboard Summaryon 06-26-19 24 Clipboard Summary {[id number]}XML [facility] CBC w/ Auto Diffon 4 Basophils/100 WBC (Bld) 0.7 % Normal 0.0-2.0 [facility] Comment on above: Performed By: #### 1 [id number], 4468352, 411286989, 47476109, 7645179, 8154963 ####[address] [address] Basophils/Leukocytes Auto (Bld) [Pure # fraction] 0.1 E9/L Normal 0.0-0.2 [facility] Comment on above: Performed By: #### 1 8900052, 3433320, 892035993, 64639866, 0514384, 4321483 ####[address] [address] Eosinophils (Bld) [#/Vol] 0.3 E9/L Normal 0.0-0.5 [facility] Comment on above: Performed By: #### 1 2842207, 9257183, 728520290, 36343154, 0253018, 6584353 ####[address] [address] Eosinophils/100 WBC (Bld) 5.0 % Normal 0.0-8.0 [facility] Comment on above: Performed By: #### 1 1398610, 1514226, 057780718, 78167406, 2966340, 2377635 ####[address] [address] Erythrocyte distribution width (RBC) [Ratio] 12.9 % Normal 10.9-14.2 [facility] Comment on above: Performed By: #### 1 7043711, 8067275, 432531688, 96316224, 1718858, 2559370 ####[address] [address] Hematocrit (Bld) [Volume fraction] 49.3 % High 37.7-49.0 [facility] Comment on above: Performed By: #### 1 5873333, 0304487, 208741860, 44669718, 4858107, 6908403 ####[address] [place] [address] Hemoglobin (Bld) [Mass/Vol] 16.7 g/dL Normal 13.5-17.5 [facility] Comment on above: Performed By: #### 1 9064611, 1966047, 514590672, 20776342, 3813090, 7856379 ####[address] [address] Lymphocytes (Bld) [#/Vol] 1.9 E9/L Normal 1.0-4.0 [facility] Comment on above: Performed By: #### 1 5074650, 6897890, 697751186, 20082469, 6625620, 4547552 ####[address] [address] Lymphocytes/100 WBC (Bld) 27.7 % Normal 14.0-50.0 [facility] Comment on above: Performed By: #### 1 1103460, 4574100, 262681666, 47501170, 9280073, 6910243 ####[address] [address] MCH (RBC) [Entitic mass] 32.1 pg Normal 27.0-34.0 [facility] Comment on above: Performed By: #### 1 7622728, 3289180, 030032331, 49409658, 2170123, 6293700 ####[address] [place] [address] MCHC (RBC) [Mass/Vol] 33.9 g/dL Normal 31.4-36.0 [facility] Comment on above: Performed By: #### 1 7877218, 0731424, 881907623, 84023834, 3243501, 9948040 ####[address] [address] MCV (RBC) [Entitic vol] 94.6 fL Normal 80.0-100.0 [facility] Comment on above: Performed By: #### 1 8431988, 1744720, 326673920, 82806443, 8363519, 9565793 ####[address] [place] [address] Monocytes (Bld) [#/Vol] 0.5 E9/L Normal 0.2-1.0 [facility] Comment on above: Performed By: #### 1 9961788, 5745852, 107320834, 75665097, 0869590, 0409218 ####[address] [place] [address] Neutrophils (Bld) [#/Vol] 4.1 E9/L Normal 2.0-7.5 [facility] Comment on above: Performed By: #### 1 4117049, 1802118, 919192918, 12560425, 5947424, 9642230 ####[address] [address] Neutrophils/100 WBC (Bld) 59.1 % Normal 36.0-75.0 [facility] Comment on above: Performed By: #### 1 0858992, 2175959, 108983700, 56464602, 3560513, 0519185 ####[address] [address] Platelet 194.0 E9/L Normal 150.0-500.0 [facility] Comment on above: Performed By: #### 1 4112715, 7744397, 410707826, 68814330, 8379498, 3163305 ####[address] [place] [address] Platelet mean volume (Bld) [Entitic vol] 7.3 fL Normal 6.4-10.8 [facility] Comment on above: Performed By: #### 1 0539540, 8147400, 670860293, 63967920, 8683944, 6703679 ####[address] [place] [address] RBC (Bld) [#/Vol] 5.2 E12/L Normal 4.3-5.9 [facility] Comment on above: Performed By: #### 1 9092121, 4276973, 216007928, 08963147, 0813139, 5846662 ####[facility] [address] [place] [address] WBC corrected for nucl RBC Auto (Bld) [#/Vol] 7.0 E9/L Normal 4.0-11.0 [facility] Comment on above: Performed By: #### 1 8283638, 6241051, 217369039, 14983955, 6076432, 3495397 ####[facility] [address] [place] [address] CHEMISTRYOrdered By: SYSTEM SYSTEM on 06-22-2023 Albumin [Mass/Vol] 4.6 g/dL Normal 3.3 - 5.0 gm/dL [facility] Albumin/Globulin [Mass ratio] 2.0 {ratio} Normal 1.1 - 2.2 [facility] ALP [Catalytic activity/Vol] 37 [iU]/d Normal 21 - 98 Int._Unit/L [facility] ALT No additional P-5'-P [Catalytic activity/Vol] 24 [iU]/d Normal 6 - 46 Int._Unit/L [facility] Anion gap [Moles/Vol] 14 mmol/L Normal 6 - 16 mEq/L R emisol Chem AST [Catalytic activity/Vol] 20 [iU]/d Normal 5 - 43 Int._Unit/L [facility] Bilirubin [Mass/Vol] 2.3 mg/dL High 0.0 - 1 .1 mg/dL [facility] Calcium [Mass/Vol] 9.8 mg/dL Normal 8.9 - 11. 1 mg/dL [facility] Chloride [Moles/Vol] 102 mmol/L Normal 101 - 1 11 mmol/L [facility] Cholesterol [Mass/Vol] 142 mg/dL Normal 120 - 200 mg/dL [facility] Cholesterol in HDL [Mass/Vol] 46 mg/dL Invalid Interpretation Code [facility] Comment on above: Result Comment: '>= 60 LOW RISK' '<= 40 HIGH RISK' Cholesterol in LDL [Mass/Vol] 86 mg/dL Normal <=129mg/dL [facility] Cholesterol in VLDL [Mass/Vol] 17 mg/dL Normal 7 - 40 mg/dL [facility] CO2 [Moles/Vol] 29 mmol/L Normal 21 - 31 mmol/L [facility] Creatinine [Mass/Vol] 1.0 mg/dL Normal 0.5 - 1.3 mg/dL [facility] eGFR 87 mL/min/1.73 m2 Normal >=59mL/min /1 .73 m2 [facility] Globulin (S) [Mass/Vol] 2.3 g/dL Normal 1.4 - 4.0 gm/dL [facility] Glucose [Mass/Vol] 151 mg/dL Normal 55 - 199 mg/dL [facility] Potassium [Moles/Vol] 4.3 mmol/L Normal 3.5 - 5.3 mmol/L [facility] Prostate specific Ag [Mass/Vol] 3.0 ng/mL Normal 0.1 - 3.5 ng/mL [facility] Comment on above: Interpretive Data: T he concentration of PSA determined by different manufacturers can vary due to differences in assay methods and reagent specificity. Values obtained from different assay methods cannot be used interchangeably. The methodology used for this result was chemiluminescence using [employer]'s Access Hy[employer] PSA reagent. Protein [Mass/Vol] 6.9 g/dL Normal 6.0 - 7.8 gm/dL [facility] Sodium [Moles/Vol] 141 mmol/L Normal 135 - 145 mmol/L [facility] Triglyceride [Mass/Vol] 83 mg/dL Normal <=149mg/dL [facility] Urea nitrogen [Mass/Vol] 20 mg/dL Normal 5 - 21 mg/dL [facility] Urea nitrogen/Creatinine [Mass ratio] 20 mg/mg Normal 10 - 20 [facility] CHEMISTRYOrdered By: Chino Durand on 06-22-2023 HbA1c (Bld) [Mass fraction] 7.5 % High <=5.9% [facility] ChemAutoSS CHEMISTRYOrdered By: Marielena Sher on 06-22-2023 Albumin DL <= 20 mg/L (U) [Mass/Vol] mg/dL Normal 0.0 - 1.9 mg/dL [facility] Albumin/Creatinine DL <= 20 mg/L (U) [Mass ratio] NOT CALCULATED Invalid Interpretation Code 0.0 - 30.0 [facility] Comment on above: Interpretive Data: 3 0-300 mg/g Cr indicates an increased risk for diabetic nephropathy. >300 mg/g Cr is consistent with clinical nephropathy. U Creatinine 101.1 mg/dL Invalid Interpretation Code [facility] CMPon 06-22-2023 Albumin [Mass/Vol] 4.6 g/dL Normal 3.3-5.0 [facility] Comment on above: Performed By: #### 1 4176442, 7699122, 117312540, 67381566, 8731800, 5824909 ####[facility] [address] [place] [address] Albumin/Globulin (S) [Mass conc ratio] 2.0 Normal 1.1-2.2 [facility] Comment on above: Performed By: #### 1 5777530, 4648797, 031139515, 74245748, 5139438, 9549243 ####[facility] [address] [place] [address] ALP [Catalytic activity/Vol] 37 Int._Unit/L Normal 21-98 [facility] Comment on above: Performed By: #### 1 3722743, 6872479, 755284304, 40511655, 5529728, 9425290 ####[facility] [address] [place] [address] ALT No additional P-5'-P [Catalytic activity/Vol] 24 Int._Unit/L Normal 6-46 [facility] Comment on above: Performed By: #### 1 8351512, 6878770, 212329644, 90183941, 5790696, 7601018 ####[facility] [address] [place] [address] Anion gap [Moles/Vol] 14 mmol/L Normal 6-16 [facility] Comment on above: Performed By: #### 1 8974660, 7761498, 842539382, 84543175, 7682809, 3081488 ####[facility] [address] [place] [address] AST [Catalytic activity/Vol] 20 Int._Unit/L Normal 5-43 [facility] Comment on above: Performed By: #### 1 2977720, 1184982, 282817648, 03613405, 7723587, 2338868 ####[facility] [address] [place] [address] Bilirubin [Mass/Vol] 2.3 mg/dL High 0.0-1.1 [facility] Comment on above: Performed By: #### 1 1481433, 2918851, 683699207, 28828743, 1989513, 2234616 ####[facility] [address] [place] [address] Calcium [Mass/Vol] 9.8 mg/dL Normal 8.9-11.1 [facility] Comment on above: Performed By: #### 1 5197032, 4315310, 683379453, 99769027, 1697826, 5031887 ####[facility] [address] [place] [address] Chloride [Moles/Vol] 102 mmol/L Normal 101-111 [facility] Comment on above: Performed By: #### 1 6963533, 2030034, 693081175, 98268888, 1605406, 8622629 ####[facility] [address] [place] [address] CO2 [Moles/Vol] 29 mmol/L Normal 21-31 [facility] Comment on above: Performed By: #### 1 8952618, 1559862, 786041003, 60383961, 3432349, 6277169 ####[facility] [address] [place] [address] Creatinine [Mass/Vol] 1.0 mg/dL Normal 0.5-1.3 [facility] Comment on above: Performed By: #### 1 0662550, 6931137, 394731875, 51292546, 3223562, [id number] ####[facility] [address] [place] [address] Globulin (S) [Mass/Vol] 2.3 g/dL Normal 1.4-4.0 [facility] Comment on above: Performed By: #### 1 [id number], [id number], [id number], [id number], [id number], [id number] ####[facility] [address] [place] [address] Glucose [Mass/Vol] 151 mg/dL Normal 55-199 [facility] Comment on above: Performed By: #### 1 [id number], 0925544, [id number], [id number], 7250720, 8007134 ####[facility] [address] [place] [address] Potassium [Moles/Vol] 4.3 mmol/L Normal 3.5-5.3 [facility] Comment on above: Performed By: #### 1 0512607, 5385137, [id number], 51444090, 5070939, 4875705 ####[facility] [address] [place] [address] Protein [Mass/Vol] 6.9 g/dL Normal 6.0-7.8 [facility] Comment on above: Performed By: #### 1 [id number], 8713680, [id number], 27359932, 4728108, 7748110 ####[facility] [address] [place] [address] Sodium [Moles/Vol] 141 mmol/L Normal 135-145 [facility] Comment on above: Performed By: #### 1 [id number], 7679670, [id number], 62360024, 3132125, 0473622 ####[facility] [address] [place] [address] Urea nitrogen [Mass/Vol] 20 mg/dL Normal 5-21 [facility] Comment on above: Performed By: #### 1 [id number], 0029455, [id number], 22145551, 6388542, 2156481 ####[facility] [address] [place] [address] Urea nitrogen/Creatinine [Mass ratio] 20 No Units Normal 10-20 [facility] Comment on above: Performed By: #### 1 6556264, 4537605, [id number], 42776238, 5725497, 9031397 ####[facility] [address] [place] [address] Consent for Treatmenton 06-09 Consent for Treatment [id number] .00TIFF [facility] HEMATOLOGYOrdered By: SYSTEM SYSTEM on 06-22-2023 Basophils/100 WBC (Bld) 0.7 % Normal 0.0 - 2.0 % [facility] Basophils/Leukocytes Auto (Bld) [Pure # fraction] 0.1 E9/L Normal 0.0 - 0.2 E9/L [facility] Eosinophils (Bld) [#/Vol] 0.3 E9/L Normal 0.0 - 0.5 E9/L [facility] Eosinophils/100 WBC (Bld) 5.0 % Normal 0.0 - 8.0 % [facility] Erythrocyte distribution width (RBC) [Ratio] 12.9 % Normal 10.9 - 14.2 % [facility] Hematocrit (Bld) [Volume fraction] 49.3 % High 37.7 - 49.0 % [facility] Hemoglobin (Bld) [Mass/Vol] 16.7 g/dL Normal 13.5 - 17.5 gm/dL [facility] Lymphocytes (Bld) [#/Vol] 1.9 E9/L Normal 1.0 - 4.0 E9/L [facility] Lymphocytes/100 WBC (Bld) 27.7 % Normal 14.0 - 50.0 % [facility] MCH (RBC) [Entitic mass] 32.1 pg Normal 27.0 - 34.0 pg [facility] MCHC (RBC) [Mass/Vol] 33.9 g/dL Normal 31.4 - 36.0 gm/dL [facility] MCV (RBC) [Entitic vol] 94.6 fL Normal 80.0 - 100.0 fL [facility] Monocytes (Bld) [#/Vol] 0.5 E9/L Normal 0.2 - 1.0 E9/L [facility] Monocytes/100 WBC (Bld) 7.5 % Normal 4.0 - 14.0 % [facility] Neutrophils (Bld) [#/Vol] 4.1 E9/L Normal 2.0 - 7.5 E9/L [facility] Neutrophils/100 WBC (Bld) 59.1 % Normal 36.0 - 75.0 % [facility] Platelet 194.0 E9/L Normal 150.0 - 500.0 E9/L [facility] Platelet mean volume (Bld) [Entitic vol] 7.3 fL Normal 6.4 - 10.8 fL [facility] RBC (Bld) [#/Vol] 5.2 E12/L Normal 4.3 - 5.9 E12/L [facility] WBC corrected for nucl RBC Auto (Bld) [#/Vol] 7.0 E9/L Normal 4.0 - 11.0 E9/L [facility] [id number] 06-22-2023 HbA1c (Bld) [Mass fraction] 7.5 % High <=5.9 [facility] Comment on above: Performed By: #### 1 [id number], 4060203, [id number], 62368796, 0054502, 1852712 ####[facility] [address] [place] [address] Lipid Panelon 06-22-2023 Cholesterol [Mass/Vol] 142 mg/dL Normal 120-200 [facility] Comment on above: Performed By: #### 1 3566972, 2172513, 789173431, 94393427, 0754775, 4602042 ####[facility] [address] [place] [address] Cholesterol in HDL [Mass/Vol] 46 mg/dL Invalid Interpretation Code [facility] Comment on above: Result Comment: '>= 60 LOW RISK' '<= 40 HIGH RISK' Performed By: #### 1 5329236, 0680825, [id number], 78632987, 5866455, 1841414 ####[facility] [address] [place] [address] Cholesterol in LDL [Mass/Vol] 86 mg/dL Normal <=129 [facility] Comment on above: Performed By: #### 1 5697238, 5155352, [id number], 61351614, 6248333, 3750840 ####[facility] [address] [place] [address] Cholesterol in VLDL [Mass/Vol] 17 mg/dL Normal 7-40 [facility] Comment on above: Performed By: #### 1 2174465, 1202939, 641957171, 69487784, 8323075, 6607484 ####[facility] [address] [place] [address] Triglyceride [Mass/Vol] 83 mg/dL Normal <=149 [facility] Comment on above: Performed By: #### 1 8591887, 7474283, [id number], 55002839, 5590571, 4865932 ####[facility] [address] [place] [address] MA/Cr Ratioon 06-22-2023 Albumin DL <= 20 mg/L (U) [Mass/Vol] mg/dL Normal 0.0-1.9 [facility] Comment on above: Performed By: #### 1 [id number] ####[facility] [address] [place] [address] Albumin/Creatinine DL <= 20 mg/L (U) [Mass ratio] NOT CALCULATED Invalid Interpretation Code .0-30.0 [facility] Comment on above: Result Comment: 30-3 00 mg/g Cr indicates an increased risk for diabetic nephropathy. >300 mg/g Cr is consistent with clinical nephropathy. Performed By: #### 1 [id number] ####[facility] [address] [place] [address] U Creatinine 101.1 mg/dL Invalid Interpretation Code [facility] Comment on above: Performed By: #### 1 [id number] ####[facility] [address] [place] [address] PSA Screen, Totalon 06-22-19 24 Prostate specific Ag [Mass/Vol] 3.0 ng/mL Normal 0.1-3.5 [facility] Comment on above: Result Comment: The concentration of PSA determined by different manufacturers can vary due to differences in assay methods and reagent specificity. Values obtained from different assay methods cannot be used interchangeably. The methodology used for this result was chemiluminescence using [employer] PSA reagent. Performed By: #### 1 [id number], 0134341, [id number], 03784554, 9340169, 7507830 ####[facility] [address] [place] [address] eGFRon 06-22-2023 eGFR 87 mL/min/1.73 m2 Normal >=59 [facility] Comment on above: Order Comment: Order added by Discern Expert. Performed By: #### 1 4798066, 5074422, 416678014, 54455550, 6970492, 7117482 ####[facility] [address] [place] [address] Discharge Instructionson Discharge Instructions [id number]# 1.00TIFF [facility] Insurance Correspondenceon 0 04-22-2023 Insurance Correspondence [id number]# 1.00TIFF [facility] CHEMISTRYOrdered By: SYSTEM SYSTEM on 04-20-2023 Cholesterol [Mass/Vol] 140 mg/dL Normal 120 - 200 mg/dL [facility] Cholesterol in HDL [Mass/Vol] 42 mg/dL Invalid Interpretation Code [facility] Comment on above: Result Comment: '>= 60 LOW RISK' '<= 40 HIGH RISK' Cholesterol in LDL [Mass/Vol] 86 mg/dL Normal <=129mg/dL [facility] Cholesterol in VLDL [Mass/Vol] 25 mg/dL Normal 7 - 40 mg/dL [facility] Triglyceride [Mass/Vol] 123 mg/dL Normal <=149mg/dL [facility] CHEMISTRYOrdered By: Chino Durand on 02-10-2024 HbA1c (Bld) [Mass fraction] 7.6 % High <=5.9% [facility] ChemAutoSS CHEMISTRYOrdered By: Lab ROP User on 04-20-2023 Glucose [Mass/Vol] 185 mg/dL High 55 - 99 mg/dL [facility] POC Subsection Comment on above: Result Comment: Ailyn kris Meter POC Device SN [id number] 1 Invalid Interpretation Code [facility] POC Subsection POC User ID [id number] 1 Invalid Interpretation Code [facility] POC Subsection POC Username LUIS SALAZAR Invalid Interpretation Code [facility] POC Subsection Capillary Glucose POCon 04-11 Glucose [Mass/Vol] 185 mg/dL High 55-99 [facility] Comment on above: Result Comment: Ailyn kris Meter Performed By: #### 2 [id number] ####[facility] [address] [place] [address] Consultation Noteon 04-20-19 24 Consultation Note Chief Complaint Pt reports LKW 0800. Started with unilateral weakness and numbness on left side. Denies unsteady gait, vision, or speech changes, but reports he had what seemed like a dot in his left eye at the time, which has since resolved. hx of diabetes. Reason for Consultation TIA History of Present Illness 58-year-old man. 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 History of type 2 diabetes and hyperlipidemia. History of statin intolerance but he has been chronically tolerating his home rosuvastatin. Around 7:45 AM yesterday while at work he began to feel vaguely lightheaded and then felt like his left arm was disconnected from his body and then felt a feeling of numbness star in the left upper extremity but was soon after noticed in the face and the left lower extremity as well. At some point he was having some foreign object sensation in his left eye but he strongly denied visual symptoms to me. He had a subjective feeling that the side of his face was droopy but witnesses did not notice any facial drooping and motor weems the left side of his body seem to function perfectly well throughout all of this. He was able to walk and use his limbs without any clumsiness or difficulty. It was insisted that he come here for evaluation so he did. He showed up a little after 9 AM. He had an MRI around noon and at that time he was still symptomatic. Later on in the evening the symptoms seem to gradually subside completely. Overnight and into this morning he is asymptomatic and at his baseline. He has never had anything like this happen before. There is no associated pain or headache. He has no significant history of headaches. He does mention having some zings of pain stemming from his neck going into his proximal upper extremities or shoulders if he sits with his neck in 1 position too long or moves his neck a certain way. Review of Systems GEN: No fevers or chills. CV/PULM: No chest pain. No shortness of breath. No palpitations. NEURO: No headaches. No loss of vision. No double vision. No dysphagia. No speech changes. No focal weakness. Yes sensory loss as described above. Physical Exam Vitals & Measurements T: 36.8 ?C(Oral) TMIN: 36.5 ?C(Oral) TMAX: 36.9 ?C(Oral) HR: 91(Monitored) RR: 18 BP: 119/73 SpO2: 97% HT: 177.80 cm WT: 85.2 kg GEN: General appearance normal. Well-kempt. No distress. No visualized deformities or trauma. CARDIO/VASC: Limbs without significant edema and appear well-perfused. PULM: Normal work of breathing. SKIN: Visualized skin is intact and without lesions aside from age-related findings. MS: Affect is normal. Patient is alert and generally oriented. Normal attention. LANG: Speech is fluent and non-dysarthric. EYES: Pupils equal/reactive/consen sual. Ocular motility full. No pathologic nystagmus. CN: Facial sensation normal. Hearing acuity normal. Face without droop and with normal motor function. MOTOR: Muscle bulk normal. Muscle tone normal. Muscle strength normal. No tremors. REFLEXES: Reflexes normoactive throughout. No pathologic reflexes. SENSORY: Light touch normal. Vibratory sensation intact in distal extremities. CEREBELLAR: No limb ataxia. Date/Time:04/20/23 Level of Consciousness: Alert = 0 Current month and age: Answers both correctly = 0 Open and close eyes/hydrographic surveyor release hand: Obeys both correctly = 0 Best gaze: Normal = 0 Visual field testing: No visual field loss = 0 Facial paresis: Normal symmetric movement = 0 Motor function left arm: Normal = 0 Motor function right arm: Normal = 0 Motor function left leg: Normal = 0 Motor function right leg: Normal = 0 Limb ataxia: No ataxia = 0 Sensory: Normal = 0 Best language: No aphasia = 0 Dysarthria: Normal articulation = 0 Extinction and inattention: Normal = 0 Total Score (severe deficit >22): 0 Notes: Assessment/Plan ASSESSMENT: Temporary left hemisensory symptoms, lasting approximately 12 hours total. No visual symptoms as was previously stated. TIA would be the primary consideration. He has cerebrovascular risk factors of hyperlipidemia (on a statin, June 2022 LDL 100) and type 2 diabetes (medicated, June 2022 A1c 7.1%). CTA of his head and neck show unremarkable vasculature. MRI of his brain looks completely unremarkable for any acute process; of note, he was still symptomatic while receiving that imaging study. An acephalgic migraine process could be a consideration, but he has no significant history of headaches and seems an atypical candidate from migraine problem. An isolated focal sensory seizure would be a very unlikely possibility here; there could be consideration for this type of problem if this becomes a recurrent issue for him. Unrelated to reason for admission, but the CT angiography pictures of the neck show some bony central canal changes that look to give him significant central canal stenosis at C6-7. He does not have a sensory level, pathologic hyperreflexia, or other symptoms or signs of a compressive myelopathy. But he has been (more content not included)... [facility] Comment on above: Result Comment: Elec tronically Signed By: Autumn Hays RN\.br\Date and Time Signed: 04/20/23 09:28 EST\.br\Electronically Co-Signed By: Krystian Tyson DO\.br\Date and Time Co-Signed: 04/20/23 10:08 EST ED Note-Physicianon 04-20-19 ED Note-Physician Basic Information Time Seen: Axel Andrade PA-C 04/19/2023 09:12 Chief Complaint Pt reports LKW 0800. Started with unilateral weakness and numbness on left side. Denies unsteady gait, vision, or speech changes, but reports he had what seemed like a dot in his left eye at the time, which has since resolved. hx of diabetes. History of Present Illness 58-year-old male comes to the ED for evaluation of strokelike symptoms. Approximate hour prior to arrival he developed left-sided symptoms. Complains of diffuse numbness and paresthesias to the left side of the body including his face. He had some associated visual changes in his left eye and the sensation of left facial droop. Upon arrival here his facial droop and vision changes have resolved but continues to have some paresthesias to his left arm and leg. No associated weakness. He had no difficulty with ambulation. He had no confusion or speech deficit. No associated pain or discomfort. Review of Systems A 10 point review of systems is negative except as noted above. Medical and Surgical History: Reviewed and noted Social history: Lives at home Tobacco: Denies Physical Exam Vitals & Measurements T: 36.5 ?C(Oral) HR: 73(Monitored) RR: 13 BP: 113/76 SpO2: 97% HT: 177 cm WT: 84.0 kg BMI: 26.81 Nurses notes and vital signs reviewed and patient is not hypoxic. General: The patient appears well and in no significant distress Patient is resting comfortably on the exam bed. Skin: Warm, dry, no pallor noted. Head: Atraumatic. Neck: No JVD. Eye: Normal conjunctiva. Ears, Nose, Mouth, and Throat: Moist mucous membranes Cardiovascular: Strong distal pulses. Chest wall: Respiratory: Respirations are nonlabored. Lungs clear to auscultation. Back: Normal range of motion, no CVA tenderness. Musculoskeletal: Normal ROM with no gross deformity. Gastrointestinal: Soft and nontender. Urological: Neurological: Awake and alert. Follows commands. Speech is clear. No facial asymmetry. Full range of motion and strength to both upper and lower extremities. NIHSS 1 for subjective left-sided paresthesias Psychiatric: Cooperative. Medical Decision Making Patient presents with left-sided paresthesias. NIHSS [address] the brain is negative per radiologist. Patient is not a tPA candidate due to mild improving symptoms and low NIH score. Laboratory studies reviewed and noted. EKG without ischemic changes. Chest x-ray with no acute findings. With serial examination he continues to have left-sided paresthesias. ABCD2 score is 4, placing the patient in the moderate risk category for CVA. Case discussed with the hospitalist for admission. Assessment/Plan 1. Left sided numbness (R20.0: Anesthesia of skin) Orders: Basic Metabolic Panel CBC w/ Auto Diff [place] Stroke Scale Communication Order Physician to Nursing Continuous Pulse Oximetry CT Head or Brain w/o Contrast CVA/TIA Inclusion/Exclusion Criteria ED Cardiac Monitoring eGFR NIH Stroke Scale Oxygen Therapy PT & PTT Routine Capillary Glucose POC Saline Lock Insert Stroke Quality Measures Troponin 0 Hr. Vital Signs XR Chest Single View Disposition Plan Patient Discharge Condition Disposition: Admitted to the hospital Condition: Improved and stable Counseled: Patient and/or family were counseled to workup, results, treatment plan and follow-up recommendations Discharge Prescription List Prescriptions No active prescription medications Follow-up No qualifying data available Attestation I performed a substantive part of the MDM during the patient?s E/M visit. I personally made or approved the documented management plan and acknowledge its risk of complications. (Independent Interpretation) My (EKG/X-Ray/US/CT) interpretation as above. (Discussion) Management/test interpretation discussed with APC. This report was transcribed using voice recognition software. Every effort was made to ensure accuracy, however, inadvertently computerized director of teenage activities mistakes may be present. Appropriate healthcare PPE was used in evaluating this patient. Problem List/Past Medical History Ongoing BPH with obstruction/lower urinary tract symptoms Former smoker Herniated lumbar intervertebral disc Hyperlipidemia, mixed Low back pain Lumbar paraspinal muscle spasm Nocturia Palpitations Preventative health care Type 2 diabetes mellitus with hyperlipidemia Historical No qualifying data Procedure/Surgical History Injection of facet joint using fluoroscopic guidance (12/13/2020), Injection of nerve root of lumbar spine using fluoroscopic guidance (10/04/2020), Epidural injection of lumbar spine using fluoroscopic guidance (04/19/2020), Appendectomy, Colonoscopy. Medications Inpatient No active inpatient medications Home Crestor 20 mg Tab, 20 mg= 1 tab(s), Oral, Daily cyclobenzaprine 10 mg Tab, 10 mg= 1 tab(s), Oral, TID, PRN Flomax 0.4 mg Cap, 0.4 mg= 1 cap(s), Oral (more content not included)... [facility] Comment on above: Result Comment: Elec tronically Signed By: Axel Andrade PA-C\.br\Date and Time Signed: 04/19/23 10:16 EST\.br\Electronically Co-Signed By: Maria Antonia Hui DO\.br\Date and Time Co-Signed: 04/20/23 07:12 EST [id number] 04-20-2023 HbA1c (Bld) [Mass fraction] 7.6 % High <=5.9 [facility] Comment on above: Performed By: #### 2 [id number], [id number] #### [facility] [address] [place] [address] Inpatient Patient Summaryon 04-20-2023 Inpatient Patient Summary MARIA ANTOINA BALL :1965 Visit Date:04/19/2023 Inpatient Discharge Instructions Your Care Team Admitting Physician - KARL FELDMAN, Kay Consulting Physician - Jorge Luis FELDMAN, Gallito Bowers MD, Jonatan Burroughs Reason for Your Visit Pt reports LKW 0800. Started with unilateral weakness and numbness on left side. Denies unsteady gait, vision, or speech changes, but reports he had what seemed like a dot in his left eye at the time, which has since resolved. hx of diabetes. Your Diagnosis Brain TIA Type 2 diabetes mellitus with hyperlipidemia Hyperlipidemia, mixed Herniated lumbar intervertebral disc BPH with obstruction/lower urinary tract symptoms Hyperlipidemia, unspecified Other obstructive and reflux uropathy Paresthesia Weakness or fatigue Tests Performed HgbA1c -- Results Pending -- Lipid Panel -- Results Pending -- CT Head or Brain w/o Contrast CTA Head CTA Neck Echo w/ Saline Bubbles MRI Brain w/o Contrast XR Chest Single View Please visit your patient portal for your results or contact your primary care physician. This Is Your Medications List [facility] Prescription ([facility] Prescription) aspirin (aspirin 81 mg Oral EC Tab) empagliflozin (Jardiance 25 mg oral tablet) ibuprofen (ibuprofen 600 mg Tab) metformin (metformin 500 mg Tab) rosuvastatin (Crestor 20 mg Tab) tamsulosin (Flomax 0.4 mg Cap) [Image Removed: STOP]Stop taking these medications cyclobenzaprine (cyclobenzaprine 10 mg Tab) Procedure History Injection of facet joint using fluoroscopic guidance (12/13/2020), Injection of nerve root of lumbar spine using fluoroscopic guidance (10/04/2020), Epidural injection of lumbar spine using fluoroscopic guidance (04/19/2020), Appendectomy, Colonoscopy. Discharge Vitals Temperature (Oral) 36.8 ?C Heart Rate (Monitored) 91 Respiratory Rate 18 Blood Pressure 119/73 Height 177.80 cm Weight 85.2 kg BMI 26.95 What to do next Instructions From Your Doctor Event Name Event Result Discharge Activity Ambulate as tolerated Discharge Restrictions No restrictions Discharge Diet(s) Fat Modified- 50 gram Pending Diagnostic Test Results None Pharmacy Information [facility] Previously Scheduled Follow-Up Appointments Saturday 2:20 PM EDT With: JNAETH FELDMAN, Maria Antonia Tellez Where: [facility] Primary [facility] Interdisciplinary Note - Nevaeh n 04-20-2023 Interdisciplinary Note - OT Pt demonstrated good safety awareness during all OOB actvities. Pt oriented and reports feeling back to his functional baseline. Pt appeared to slightly weaker with LUE shoulder flexion (4/5) compared to his RUE shoulder flexion (4+/5), but able to complete all activities independently. Pt did report cramping in his BLE feet for the past month that will go away after 20 seconds of weightbearing; pt encouraged to follow up with doctor to discuss possible causes. Pt does not demonstrate a need for continued acute OT services. Recommend d/c independently once medically stable. [facility]: [facility] Interdisciplinary Note - PTo n 04-20-2023 Interdisciplinary Note - PT Pt reports onset of bilat LE cramping for 1 month. Pt states it does go away with weightbearing after about 20 seconds. Pt to discuss with physician as this is a new onset. [facility] Lipid Panelon 04-20-2023 Cholesterol [Mass/Vol] 140 mg/dL Normal 120-200 [facility] Comment on above: Performed By: #### 2 [id number], [id number] #### [facility] [address] [place] [address] Cholesterol in HDL [Mass/Vol] 42 mg/dL Invalid Interpretation Code [facility] Comment on above: Result Comment: '>= 60 LOW RISK' '<= 40 HIGH RISK' Performed By: #### 2 [id number], [id number] #### [facility] [address] [place] [address] Cholesterol in LDL [Mass/Vol] 86 mg/dL Normal <=129 [facility] Comment on above: Performed By: #### 2 [id number], [id number] #### [facility] [address] [place] [address] Cholesterol in VLDL [Mass/Vol] 25 mg/dL Normal 7-40 [facility] Comment on above: Performed By: #### 2 [id number], [id number] #### [facility] [address] [place] [address] Triglyceride [Mass/Vol] 123 mg/dL Normal <=149 [facility] Comment on above: Performed By: #### 2 [id number], [id number] #### [facility] [address] [place] [address] Monitor Recordon 04-20-2023 Monitor Record [id number]# 1.00TIFF [facility] Patient Education - Texton 0 04-20-2023 Patient Education - Text Stroke Prevention Some medical conditions and behaviors can lead to a higher chance of having a stroke. You can help prevent a stroke by eating healthy, exercising, not smoking, and managing any medical conditions you have. Stroke is a leading cause of functional impairment. Primary prevention is particularly important because a majority of strokes are first-time events. Stroke changes the lives of not only those who experience a stroke but also their family and other caregivers. How can this condition affect me? A stroke is a medical emergency and should be treated right away. A stroke can lead to brain damage and can sometimes be life-threatening. If a person gets medical treatment right away, there is a better chance of surviving and recovering from a stroke. What can increase my risk? The following medical conditions may increase your risk of a stroke: ? Cardiovascular disease. ? High blood pressure (hypertension). ? Diabetes. ? High cholesterol. ? Sickle cell disease. ? Blood clotting disorders (hypercoagulable state). ? Obesity. ? Sleep disorders (obstructive sleep apnea). Other risk factors include: ? Being older than age 60. ? Having a history of blood clots, stroke, or mini-stroke (transient ischemic attack, TIA). ? Genetic factors, such as race, ethnicity, or a family history of stroke. ? Smoking cigarettes or using other tobacco products. ? Taking control pills, especially if you also use tobacco. ? Heavy use of alcohol or drugs, especially cocaine and methamphetamine. ? Physical inactivity. What actions can I take to prevent this? Manage your health conditions ? High cholesterol levels. ? Eating a healthy diet is important for preventing high cholesterol. If cholesterol cannot be managed through diet alone, you may need to take medicines. ? Take any prescribed medicines to control your cholesterol as told by your health care provider. ? Hypertension. ? To reduce your risk of stroke, try to keep your blood pressure below 130/80. ? Eating a healthy diet and exercising regularly are important for controlling blood pressure. If these steps are not enough to manage your blood pressure, you may need to take medicines. ? Take any prescribed medicines to control hypertension as told by your health care provider. ? Ask your health care provider if you should monitor your blood pressure at home. ? Have your blood pressure checked every year, even if your blood pressure is normal. Blood pressure increases with age and some medical conditions. ? Diabetes. ? Eating a healthy diet and exercising regularly are important parts of managing your blood sugar (glucose). If your blood sugar cannot be managed through diet and exercise, you may need to take medicines. ? Take any prescribed medicines to control your diabetes as told by your health care provider. ? Get evaluated for obstructive sleep apnea. Talk to your health care provider about getting a sleep evaluation if you snore a lot or have excessive sleepiness. ? Make sure that any other medical conditions you have, such as atrial fibrillation or atherosclerosis, are managed. Nutrition Follow instructions from your health care provider about what to eat or drink to help manage your health condition. These instructions may include: ? Reducing your daily calorie intake. ? Limiting how much salt (sodium) you use to 1,500 milligrams (mg) each day. ? Using only healthy fats for cooking, such as olive oil, canola oil, or sunflower oil. ? Eating healthy foods. You can do this by: ? Choosing foods that are high in fiber, such as whole grains, and fresh fruits and vegetables. ? Eating at least 5 servings of fruits and vegetables a day. Try to fill one-half of your plate with fruits and vegetables at each meal. ? Choosing lean protein foods, such as lean cuts of meat, poultry without skin, fish, tofu, beans, and nuts. ? Eating low-fat dairy products. ? Avoiding foods that are high in sodium. This can help lower blood pressure. ? Avoiding foods that have saturated fat, trans fat, and cholesterol. This can help prevent high cholesterol. ? Avoiding processed and prepared foods. ? Counting your daily carbohydrate intake. Lifestyle ? If you drink alcohol: ? Limit how much you have to: ? 0?1 drink a day for women who are not . ? 0?2 drinks a day for men. ? Know how much alcohol is in your drink. In the [place] one drink equals one 12 oz bottle of beer (355mL), one 5 oz glass of wine (148mL), or one 1? oz glass of hard liquor (44mL). ? Do not use any products that contain nicotine or tobacco. These products include cigarettes, chewing tobacco, and vaping devices, such as e-cigarettes. If you need help quitting, ask your health care provider. ? Avoid secondhand smoke. ? Do not use drugs. Activity ? Try to stay at a healthy weight. ? Get at least 30 minutes of exerci (more content not included)... [facility]19[facility]23 Anion gap [Moles/Vol] 11 mmol/L Normal 6-16 [facility] Comment on above: Performed By: #### 2 [id number], [id number], [id number], 2864185, [id number] #### [facility] [address] [place] [address] BUN/Creat Ratio 14 No Units Normal 10-20 [facility] Comment on above: Performed By: #### 2 070889, [id number], 77758088, 0495387, 10046968 #### [facility] [address] [place] [address] Calcium [Mass/Vol] 9.0 mg/dL Normal 8.9-11.1 [facility] Comment on above: Performed By: #### 2 377903, 06984439, 43882076, 8891301, 90855461 #### [facility] [address] [place] [address] Chloride [Moles/Vol] 104 mmol/L Normal 101-111 [facility] Comment on above: Performed By: #### 2 611478, 46798654, 88691114, 7405277, 66075939 #### [facility] [address] [place] [address] CO2 [Moles/Vol] 27 mmol/L Normal 21-31 [facility] Comment on above: Performed By: #### 2 067376, 46059494, 81348638, 5230396, 01563246 #### [facility] [address] [place] [address] Creatinine [Mass/Vol] 1.1 mg/dL Normal 0.5-1.3 [facility] Comment on above: Performed By: #### 2 003461, 24652638, 36027342, 1106285, 25843721 #### [facility] [address] [place] [address] Glucose [Mass/Vol] 207 mg/dL High 55-199 [facility] Comment on above: Performed By: #### 2 073285, 39213431, 44170789, 6868414, 66469166 #### [facility] [address] [place] [address] Potassium [Moles/Vol] 3.8 mmol/L Normal 3.5-5.3 [facility] Comment on above: Performed By: #### 2 411492, 27182693, 96767420, 0179933, 27678772 #### [facility] [address] [place] [address] Sodium [Moles/Vol] 138 mmol/L Normal 135-145 [facility] Comment on above: Performed By: #### 2 721331, 77990856, 05751882, 6337450, 16809163 #### [facility] [address] [place] [address] Urea nitrogen [Mass/Vol] 16 mg/dL Normal 5-21 [facility] Comment on above: Performed By: #### 2 926451, 21159801, 24941066, 0173961, 30735753 #### [facility] [address] [place] [address] CBC w/ Auto Diffon 4 Basophil Absolute 0.1 E9/L Normal 0.0-0.2 [facility] Comment on above: Performed By: #### 2 900855, 59026660, 54589403, 0394997, 39297410 #### [facility] [address] [place] [address] Basophils/100 WBC (Bld) 1.1 % Normal 0.0-2.0 [facility] Comment on above: Performed By: #### 2 241614, 83511562, 02181012, 6773230, 24050372 #### [facility] [address] [place] [address] Eos Absolute 0.3 E9/L Normal 0.0-0.5 [facility] Comment on above: Performed By: #### 2 842761, 61445356, 00305958, 7757218, 17819455 #### [facility] [address] [place] [address] Eosinophils/100 WBC (Bld) 4.1 % Normal 0.0-8.0 [facility] Comment on above: Performed By: #### 2 619149, 10548690, 91304541, 6050670, 18708766 #### [facility] [address] [place] [address] Erythrocyte distribution width (RBC) [Ratio] 13.0 % Normal 10.9-14.2 [facility] Comment on above: Performed By: #### 2 240716, 01705618, 40355280, 6955901, 49252103 #### [facility] [address] [place] [address] Hematocrit (Bld) [Volume fraction] 44.0 % Normal 37.7-49.0 [facility] Comment on above: Performed By: #### 2 619427, 04488232, 33247629, 2611134, 38826889 #### [facility] [address] [place] [address] Hemoglobin (Bld) [Mass/Vol] 15.6 g/dL Normal 13.5-17.5 [facility] Comment on above: Performed By: #### 2 870433, 24742125, 53217122, 2372612, 63675773 #### [facility] [address] [place] [address] Lymph Absolute 1.6 E9/L Normal 1.0-4.0 [facility] Comment on above: Performed By: #### 2 615714, 29429976, 85105729, 8436095, 59805174 #### [facility] [address] [place] [address] Lymphocytes/100 WBC (Bld) 24.7 % Normal 14.0-50.0 [facility] Comment on above: Performed By: #### 2 402024, 10579910, 30820199, 3556901, 39146509 #### [facility] [address] [place] [address] MCH (RBC) [Entitic mass] 32.6 pg Normal 27.0-34.0 [facility] Comment on above: Performed By: #### 2 481142, 44273537, 71319369, 2692906, 12765983 #### [facility] [address] [place] [address] MCHC (RBC) [Mass/Vol] 35.1 g/dL Normal 31.4-36.0 [facility] Comment on above: Performed By: #### 2 141114, 66676992, 72782242, 4395392, 37823856 #### [facility] [address] [place] [address] MCV (RBC) [Entitic vol] 92.8 fL Normal 80.0-100.0 [facility] Comment on above: Performed By: #### 2 553747, 30978945, 06405303, 3680419, 22309810 #### [facility] [address] [place] [address] Glynn Absolute 0.6 E9/L Normal 0.2-1.0 [facility] Comment on above: Performed By: #### 2 900755, 23728709, 94542316, 6318825, 40499435 #### [facility] [address] [place], [place] [address] Monocytes/100 WBC (Bld) 8.5 % Normal 4.0-14.0 [facility] Comment on above: Performed By: #### 2 097436, 52487011, 22286605, 1422424, 73782535 #### [facility] [address] [place] [address] Neutro Absolute 4.1 E9/L Normal 2.0-7.5 [facility] Comment on above: Performed By: #### 2 489316, 59886838, 25728968, 5352978, 95283871 #### [facility] [address] [place] [address] Neutro Auto 61.6 % Normal 36.0-75.0 [facility] Comment on above: Performed By: #### 2 942381, 74481323, 81520416, 2445541, 41250946 #### [facility] [address] [place] [address] Platelet 170.0 E9/L Normal 150.0-500.0 [facility] Comment on above: Performed By: #### 2 358347, 54879845, 63466244, 3552542, 69400757 #### [facility] [address] [place] [address] Platelet mean volume (Bld) [Entitic vol] 7.2 fL Normal 6.4-10.8 [facility] Comment on above: Performed By: #### 2 364480, 67271202, 57458028, 6279861, 07951809 #### [facility] [address] [place] [address] RBC 4.8 E12/L Normal 4.3-5.9 [facility] Comment on above: Performed By: #### 2 813936, 61021556, 55406620, 9226340, 73616763 #### [facility] [address] [place] [address] WBC 6.7 E9/L Normal 4.0-11.0 [facility] Comment on above: Performed By: #### 2 234394, 50625370, 57519355, 0585896, 25890810 #### [facility] [address] [place] [address] CHEMISTRYOrdered By: Lab ROP User on 04-19-2023 POC Device SN [id number] 1 Invalid Interpretation Code [facility] POC Subsection POC User ID [id number] 1 Invalid Interpretation Code [facility] POC Subsection POC Username AHSU EUBANKS Invalid Interpretation Code [facility] POC Subsection Glucose [Mass/Vol] 196 mg/dL High 55 - 99 mg/dL [facility] POC Subsection Comment on above: Result Comment: Latrice marroquin RN/ POC Device SN [id number] 1 Invalid Interpretation Code [facility] POC Subsection POC User ID [id number] 1 Invalid Interpretation Code [facility] POC Subsection POC Username LEOBARDO AGUIAR Invalid Interpretation Code [facility] POC Subsection CHEMISTRYOrdered By: SYSTEM SYSTEM on 04-19-2023 Anion gap [Moles/Vol] 11 mmol/L Normal 6 - 16 mEq/L R emisol Chem Calcium [Mass/Vol] 9.0 mg/dL Normal 8.9 - 11. 1 mg/dL [facility] Chloride [Moles/Vol] 104 mmol/L Normal 101 - 1 11 mmol/L [facility] CO2 [Moles/Vol] 27 mmol/L Normal 21 - 31 mmol/L [facility] Creatinine [Mass/Vol] 1.1 mg/dL Normal 0.5 - 1.3 mg/dL [facility] eGFR 78 mL/min/1.73 m2 Normal >=59mL/min /1 .73 m2 [facility] Glucose [Mass/Vol] 207 mg/dL High 55 - 199 mg/dL [facility] Potassium [Moles/Vol] 3.8 mmol/L Normal 3.5 - 5.3 mmol/L [facility] Sodium [Moles/Vol] 138 mmol/L Normal 135 - 145 mmol/L [facility] Troponin 2.60 pg/mL Low 15.90 - 38.40 pg/mL [facility] Comment on above: Interpretive Data: T he 95% CI (Confidence Interval) PPV (Positive Predictive Value) for myocardial infarction in females is 38 pg/mL, in males 51 pg/mL. The results should be used in conjunction with clinical conditions of myocardial infarction. (Access High Sensitivity Troponin I Instructions For Use, [employer], October 2017) Urea nitrogen [Mass/Vol] 16 mg/dL Normal 5 - 21 mg/dL [facility] Urea nitrogen/Creatinine [Mass ratio] 14 mg/mg Normal 10 - 20 [facility] COAGULATIONOrdered By: Maddie Wayne on 04-19-2023 aPTT Coag (PPP) [Time] 33.2 s Normal 25.1 - 36.5 second(s) [facility] Comment on above: Interpretive Data: P arameter 15 days - 4 weeks 1 - 5 months 6 - 11 months 1 - 5 years 6 - 10 years 11 - 17 years PTT Mean: 35.4 (27.6-45.6) Mean: 33.5 (24.8-40.7) Mean: 32.4 (25.1-40.7) Mean: 31.6 (24.0-39.2) Mean: 31.6 (26.9-38.7) Mean: 31.0 (24.6-38.4) Pediatric Reference ranges were obtained from a study by Martin Donohue et al. prepared from 1437 samples obtained at 7 different centers using the same coagulation reagent and instrumentation as [facility]. Currently there are no coagulation studies available worldwide for children to 14 days, and no normal ranges. Heparin therapeutic range (represented by Anti-Factor Xa activity of 0.2 - 0.4 U/mL) corresponds to PTT of 56.6 - 109.0 sec. INR Coag (PPP) [Relative time] 0.9 {INR} Invalid Interpretation Code [facility] Comment on above: Interpretive Data: I NR results are specifically intended to assess patients stabilized on long-term Anticoagulation therapy suggested INR s Less Intensive Anticoagulation 2.0 3.0 Conventional Range 3.0 4.5 PT Coag (PPP) [Time] 10.3 s Normal 9.4 - 1 2.5 second(s) [facility] Comment on above: Interpretive Data: 1 5 days - 4 weeks 1 - 5 months 6 -11 months 1 5 years 6 10 years 11 -17 years Mean: 11.2 (9.5 12.6) Mean: 11.0 (9.7 12.8) Mean: 11.0 (9.8 13.0) Mean: 11.3 (9.9 13.4) Mean: 11.7 (10.0 14.6) Mean: 11.8 (10.0 - 14.1) Pediatric Reference ranges were obtained from a study by cecy Carcamo al. prepared from 1437 samples obtained at 7 different centers using the same coagulation reagent and instrumentation as [facility]. Currently there are no coagulation studies available worldwide for children to 14 days, and no normal ranges. CT Head or Brain w/o Contras ton 04-19-2023 CT Head or Brain w/o Contrast Exam Date/Time: 04/19/2023 09:23 EST Reason for Exam: Neuro deficit, acute, stroke suspected Report IMPRESSION: NO ACUTE INTRACRANIAL PROCESS IDENTIFIED. EXAM: CT Head or Brain w/o Contrast DATE: 04/19/2023 9:16 AM CLINICAL HISTORY: Neuro deficit, acute, stroke suspected. Left-sided weakness and numbness. COMPARISON: None available. TECHNIQUE: Routine. All CT scans at this facility use dose modulation, iterative reconstruction, and/or weight based dosing when appropriate to reduce radiation dose to as low as reasonably achievable. FINDINGS: There is no intracranial hemorrhage, mass effect, midline shift, extra-axial collection, evidence of hydrocephalus, skull fracture, or a recent ischemic infarct identified. There is no significant atrophy, or white matter changes, for age. The mastoid air cells and visualized paranasal sinuses are essentially clear. Ordering Provider: Axel Andrade FINAL REPORT Dictated: 04/19/2023 9:25 am Alfie Young MD Signed (Electronic Signature): 04/19/2023 9:25 am Signed by: Alfie Young MD Transcribed by: MILAGRO Technologist: BO Abbasi 04/19/2023 09:24 am EST, Alfie Young MD CT Brain: No acute intra or extra axial findings. [facility] CTA Headon 04-19-2023 CTA Head Exam Date/Time: 04/19/2023 12:00 EST Reason for Exam: Transient ischemic attack (TIA);Other (please specify) Report PLEASE SEE CTA Neck REPORT DATED: 04/19/2023. All CT scans at this facility use dose modulation, iterative reconstruction, and/or weight based dosing when appropriate to reduce radiation dose to as low as reasonably achievable. Ordering Provider: Kay BARAJAS FINAL REPORT Dictated: 04/19/2023 12:25 pm Alfie Young MD Signed (Electronic Signature): 04/19/2023 12:25 pm Signed by: Alfie Young MD Transcribed by: MILAGRO Technologist: YARIEL Technical Comments GFR (mL/min/1/73m2) >60 Contrast: Isovue 370 Contrast amount in ml's: 100 [facility] CTA Neckon 04-19-2023 CTA Neck Exam Date/Time: 04/19/2023 12:00 EST Reason for Exam: Transient ischemic attack (TIA);Other (please specify) Report IMPRESSION: NO LARGE VESSEL INTRACRANIAL ARTERIAL OCCLUSION, FLOW-LIMITING STENOSIS, ANEURYSM, EVIDENCE OF DISSECTION, OR OTHER ACUTE FINDINGS IDENTIFIED. EXAM: CTA Head, CTA Neck DATE: 04/19/2023 11:42 AM CLINICAL HISTORY: Transient ischemic attack (TIA). COMPARISON: Noncontrast head CT from earlier 04/19/2023. TECHNIQUE: Spiral enhanced images were obtained of the aortic arch to the skull vertex after the infusion of approximately 100 mL of Isovue 370 contrast with head and neck CTA protocol. Luminal narrowings are estimated by NASCET criteria. Routine and volume rendered images were obtained on a three-dimensional workstation. All CT scans at this facility use dose modulation, iterative reconstruction, and/or weight based dosing when appropriate to reduce radiation dose to as low as reasonably achievable. HEAD CTA FINDINGS: There is no flow-limiting stenosis, branch occlusion, evidence of dural venous sinus thrombosis, vascular malformation, intracranial aneurysm, or developmental vascular variations of concern identified. The left vertebral artery is developmentally,. NECK CTA FINDINGS: There is no flow-limiting stenosis, dissection, or other acute findings identified. The left vertebral artery is developmentally dominant. Moderate degenerative changes of the lower cervical levels are present with at least moderate central spinal stenosis and neural foraminal narrowing at C6-7. Ordering Provider: Kay BARAJAS FINAL REPORT Dictated: 04/19/2023 12:24 pm Alfie Young MD Signed (Electronic Signature): 04/19/2023 12:24 pm Signed by: Alfie Young MD Transcribed by: MILAGRO Technologist: YARIEL Technical Comments GFR (mL/min/1/73m2) >60 Contrast: Isovue 370 Contrast amount in ml's: 100 [facility] Capillary Glucose POCOrdered By: Laura MAHONEYUser on 04-19-2023 Glucose [Mass/Vol] 173 mg/dL High 55-99 [facility] P OC Subsection Comment on above: Result Comment: Latrice ESCOBAR Performed By: #### 2 [id number] #### [facility] [address] [place] [address] Capillary Glucose POCon Glucose [Mass/Vol] 196 mg/dL High 55-99 [facility] Comment on above: Result Comment: Latrice ESCOBAR Performed By: #### 2 [id number] #### [facility] [address] [place] [address] Glucose [Mass/Vol] 219 mg/dL High 55-99 [facility] Comment on above: Result Comment: Latirce ESCOBAR Performed By: #### 2 067590, [id number] #### [facility] [address] [place] [address] Glucose [Mass/Vol] 183 mg/dL High 55-99 [facility] Comment on above: Result Comment: Latrice ESCOBAR Performed By: #### 2 [id number] #### [facility] [address] [place] [address] Consent for Treatmenton Consent for Treatment [id number] [facility] ED Clinical Summaryon 2023 ED Clinical Summary [address] [address] ED Clinical Summary Person Information Name: MARIA ANTONIA BALL/NewMacy Age: 58 Years : 1965 Sex: Male Language: Surinamese PCP: Maria Antonia FELIX MD Marital Status: Single Phone: [phone] Visit Id: Visit Reason: Paresthesia; Weakness or fatigue; NUMBNESS ON THE LFT SD. LIGHTHEADED Speciality: Acuity: 2 Enc Type: Observation Med Service: Emergency Arrival: 04/19/2023 09:08:54 Discharge: LOS: 000 04:18 Checkin: 04/19/2023 09:08:54 Checkout: 04/19/2023 13:26:09 Dispo Type: Admitted as IP to this [facility] EVENTS: Event Name Event Status Request Date/Time Start Date/Time Complete Date/Time Arrive Complete 04/19/2023 09:08:54 04/19/2023 09:08:54 04/19/2023 09:08:54 Document Home Meds Request 04/19/2023 09:08:54 Triage Complete 04/19/2023 09:08:54 04/19/2023 09:15:29 04/19/2023 09:15:29 Bed Assign Complete 04/19/2023 09:10:53 04/19/2023 09:10:53 04/19/2023 09:10:53 Dr Exam Complete 04/19/2023 09:10:53 04/19/2023 09:12:13 04/19/2023 09:12:13 RN Exam Complete 04/19/2023 09:10:53 04/19/2023 09:30:31 04/19/2023 09:30:31 Registration Complete 04/19/2023 09:12:13 04/19/2023 09:13:57 04/19/2023 09:56:41 EKG Complete 04/19/2023 09:13:36 04/19/2023 09:25:50 Dr Exam Complete 04/19/2023 09:14:05 04/19/2023 09:14:05 04/19/2023 09:14:05 Pending Labs Complete 04/19/2023 09:15:02 04/19/2023 09:15:02 04/19/2023 09:15:02 Pending Labs Complete 04/19/2023 09:15:44 04/19/2023 10:04:28 Lab Complete 04/19/2023 09:15:44 04/19/2023 09:39:41 Patient Care Request 04/19/2023 09:15:44 X-Ray Complete 04/19/2023 09:15:44 04/19/2023 09:25:09 04/19/2023 09:37:21 RT Request 04/19/2023 09:15:44 CT Complete 04/19/2023 09:15:44 04/19/2023 09:16:04 04/19/2023 09:23:02 Pending Labs Complete 04/19/2023 09:22:07 04/19/2023 09:22:07 04/19/2023 09:39:41 Lab Complete 04/19/2023 09:22:07 04/19/2023 09:22:07 04/19/2023 09:39:41 RR Stroke Request 04/19/2023 09:30:32 RR Stroke Request 04/19/2023 09:30:53 Wet Read Complete 04/19/2023 09:37:21 04/19/2023 10:05:54 04/19/2023 10:05:54 Reg Complete Request 04/19/2023 09:56:41 Reg Bed Request Complete 04/19/2023 09:56:41 04/19/2023 09:56:41 04/19/2023 09:56:41 Patient Care Request 04/19/2023 10:10:41 Consult Request 04/19/2023 10:16:39 Hospitalist Consult Request 04/19/2023 10:16:39 Patient Care Request 04/19/2023 11:16:04 Meds Admin Request 04/19/2023 11:16:04 Bed Request Request 04/19/2023 11:16:04 Reg Bed Request Complete 04/19/2023 11:16:04 04/19/2023 12:26:31 04/19/2023 12:26:31 Admit Request 04/19/2023 11:16:04 Meds Admin Request 04/19/2023 11:28:27 Patient Care Request 04/19/2023 11:28:27 MRI Complete 04/19/2023 11:29:21 04/19/2023 12:25:54 04/19/2023 13:02:40 Echo Request 04/19/2023 11:29:21 Consult Request 04/19/2023 11:30:59 CT Complete 04/19/2023 11:39:40 04/19/2023 11:42:45 04/19/2023 12:00:43 Meds Admin Request 04/19/2023 12:04:51 Meds Admin Request 04/19/2023 12:06:05 Patient Care Request 04/19/2023 12:26:32 Patient Care Request 04/19/2023 12:26:32 Patient Care Complete 04/19/2023 12:26:32 04/19/2023 12:34:46 Patient Care Request 04/19/2023 12:26:33 ADDRESS: [address] [place] [phone] PHYS DOC NOTES: MEDICAL INFORMATION: Prescriptions Given: Medications to Continue with No Changes Other Medications cyclobenzaprine (cyclobenzaprine 10 mg Tab) 1 Tablets By Mouth 3 times a day as needed for spasm. Refills: 0. empagliflozin (Jardiance 25 mg oral tablet) 1 Tablets By Mouth once a day (in the morning). ibuprofen (ibuprofen 600 mg Tab) 1 Tablets By Mouth every 6 hours as needed as needed for pain. metformin (metformin 500 mg Tab) 1 Tablets By Mouth 3 times a day. Misc Prescription ([facility] Prescription) One Touch Verio Test Strips tests bid Dx: E11.9. rosuvastatin (Crestor 20 mg Tab) 1 Tablets By Mouth every day. tamsulosin (Flomax 0.4 mg Cap) 1 Capsules By Mouth every day. Refills: 11. PATIENT EDUCATION INFORMATION: Instructions: Follow up: DIAGNOSIS: 1:Brain TIA; 2:Type 2 diabetes mellitus with hyperlipidemia; 3:Hyperlipidemia, mixed; 4:Herniated lumbar intervertebral disc; 5:BPH with obstruction/lower urinary tract symptoms; Hyperlipidemia, unspecified; Other obstructive and reflux uropathy [facility] ED Note-Nursingon 04-19-2023 ED Note-Nursing Pt. went to MRI. Normal [facility] ED Patient Education Noteon 04-19-2023 ED Patient Education Note [facility] ED Patient Summaryon 024 ED Patient Summary [place] [id number] Patient Discharge Instructions Person Information Name: MARIA ANTONIA BALL Age: 58 Years Arrival Date: 04/19/2023 09:08:54 Discharge Diagnosis: 1:Brain TIA; 2:Type 2 diabetes mellitus with hyperlipidemia; 3:Hyperlipidemia, mixed; 4:Herniated lumbar intervertebral disc; 5:BPH with obstruction/lower urinary tract symptoms; Hyperlipidemia, unspecified; Other obstructive and reflux uropathy Primary Care Physician: Maria Antonia FELIX MD Provider Information Primary Provider: Maria Antonia Hui DO Advanced [employer] Advocate:Axel Andrade PA-C The exam and treatment you received in the Emergency Department were for an urgent problem and are not intended as complete care. It is important that you follow up with a doctor, nurse practitioner, or physician?s showroom sales assistant for ongoing care. If your symptoms become worse or you do not improve as expected and you are unable to reach your usual health care provider, you should return to the Emergency Department. We are available 24 hours a day. MARIA ANTONIA BALL has been given the following list of patient education materials, prescriptions and follow-up instructions: Follow-up Instructions: In the event that this physician does not participate in your insurance network, please consult with your insurance company to find a nearby participating provider. Patient Education Materials: A MESSAGE TO ALL PATIENTS REGARDING OPIOIDS PRESCRIPTION OPIOIDS: WHAT YOU NEED TO KNOW Prescription opioids can be used to help relieve [id number]-dciqxu pain and are often prescribed following a surgery or injury, or for certain health conditions. These medications can be an important part of the treatment but also come with serious risks. It is important to work with your healthcare provider to make sure you are getting the safest, most effective care. WHAT ARE THE RISKS AND SIDE EFFECTS OF OPIOID USE? Prescription opioids carry serious risks of addiction and overdose, especially with prolonged use. An opioid overdose, often marked by slowed breathing, can cause sudden . The use of prescription opioids can have a number of side effects as well, even when taken as directed: ? Tolerance?meaning you might need to take more of the medication for the same pain relief ? Physical dependence?meaning you have symptoms of withdrawal when a medication is stopped ? Increased sensitivity to pain ? Constipation ? Nausea, vomiting, and dry mouth ? Sleepiness and dizziness ? Confusion ? Depression ? Low levels of testosterone that can result in lower sex drive, energy, and strength ? Itching and sweating RISKS ARE GREATER WITH: ? History of drug misuse, substance use disorder, or overdose ? Mental health conditions (such as depression or anxiety) ? Sleep apnea ? Older age (65 years and older) ? Avoid alcohol while taking prescription opioids. Also, unless specifically advised by your health care provider, medications to avoid include: ? Benzodiazepines (such as Xanax or Valium) ? Muscle relaxants (such as Soma or Flexeril) ? Hypnotics (such as Ambien or Lunesta) ? Other prescription opioids KNOW YOUR OPTIONS Talk to your health care provider about ways to manage your pain that don?t involve prescription opioids. Some of these options may actually work better and have fewer risks and side effects. Options may include: ? Pain relievers such as acetaminophen, ibuprofen, and naproxen ? Some medication that are also used for depression or seizures ? Physical therapy and exercise ? Cognitive behavioral therapy, a psychological, goal-directed approach, in which patients learn how to modify physical, behavioral, and emotional triggers of pain and stress. IF YOU ARE PRESCRIBED OPIOIDS FOR PAIN: ? Never take opioids in greater amounts or more often than prescribed. ? Follow up with your primary health care provider. o Work together to create a plan on how to manage your pain. o Talk about ways to help manage your pain that don?t involve prescription opioids. o Talk about any and all concerns and side effects. ? Help prevent misuse and abuse o Never sell or share prescription opioids. o Never use another person?s prescription opioids. ? Store prescription opioids in a secure place and out of reach of others (this may include visitors, children, friends, and family). ? Safely dispose of unused prescription opioids: Find your community drug take-back program or your pharmacy mail-back program, or flush them down the toilet, following guidance from the Food and Drug Administration (www.fda.gov/Drugs/Re sourcesForYou). ? Visit www.cdc.gov/drugoverd ose to learn about the risks of opioids abuse and overdose. ? If you believe you may be struggling with addiction, tell your health health care analyst and ask for guidance or call S (more content not included)... [facility] HEMATOLOGYOrdered By: SYSTEM SYSTEM on 04-19-2023 Basophil Absolute 0.1 E9/L Normal 0.0 - 0.2 E9/L Remisol Heme Basophils/100 WBC (Bld) 1.1 % Normal 0.0 - 2.0 % Remisol Heme Eos Absolute 0.3 E9/L Normal 0.0 - 0.5 E9/L Rem[facility] Heme Eosinophils/100 WBC (Bld) 4.1 % Normal 0.0 - 8.0 % Remisol Heme Erythrocyte distribution width (RBC) [Ratio] 13.0 % Normal 10.9 - 14.2 % Rem[facility] Heme Hematocrit (Bld) [Volume fraction] 44.0 % Normal 37.7 - 49.0 % Rem[facility] Heme Hemoglobin (Bld) [Mass/Vol] 15.6 g/dL Normal 13.5 - 17.5 gm/dL Rem[facility] Heme Lymph Absolute 1.6 E9/L Normal 1.0 - 4.0 E9/L Rem[facility] Heme Lymphocytes/100 WBC (Bld) 24.7 % Normal 14.0 - 50.0 % Remisol Heme MCH (RBC) [Entitic mass] 32.6 pg Normal 27.0 - 34.0 pg Remisol Heme MCHC (RBC) [Mass/Vol] 35.1 g/dL Normal 31.4 - 36.0 gm/dL Rem[facility] Heme MCV (RBC) [Entitic vol] 92.8 fL Normal 80.0 - 100.0 fL Remisol Heme Glynn Absolute 0.6 E9/L Normal 0.2 - 1.0 E9/L Rem[facility] Heme Monocytes/100 WBC (Bld) 8.5 % Normal 4.0 - 14.0 % Rem[facility] Heme Neutro Absolute 4.1 E9/L Normal 2.0 - 7.5 E9/L Rem[facility] Heme Neutro Auto 61.6 % Normal 36.0 - 75.0 % Rem[facility] Heme Platelet 170.0 E9/L Normal 150.0 - 500.0 E9/L Remisol Heme Platelet mean volume (Bld) [Entitic vol] 7.2 fL Normal 6.4 - 10.8 fL Remisol Heme RBC 4.8 E12/L Normal 4.3 - 5.9 E12/L Rem[facility] Heme WBC 6.7 E9/L Normal 4.0 - 11.0 E9/L Remisol Heme Interdisciplinary Note - Nevaeh n 04-19-2023 Interdisciplinary Note - OT 04/19/23: OT order received and chart review completed. Attempted OT eval at 1424, pt undergoing testing and is unavailable. Will check back 04/20/23. [facility] Interdisciplinary Note - PTo n 04-19-2023 Interdisciplinary Note - PT Order received and chart reviewed. Pt undergoing testing at this time. Will attempt tomorrow [facility] MRI Brain w/o Contraston MRI Brain w/o Contrast Exam Date/Time: 04/19/2023 13:02 EST Reason for Exam: Transient ischemic attack (TIA);Other (please specify) Report IMPRESSION: NO ACUTE INTRACRANIAL PROCESS IDENTIFIED. EXAM: MRI Brain w/o Contrast DATE: 04/19/2023 12:25 PM CLINICAL HISTORY: Transient ischemic attack (TIA). COMPARISON: Head CT and head and neck CTAs from earlier 04/19/2023. TECHNIQUE: Multiplanar MR imaging of the head was performed without contrast. FINDINGS: Acute Change: There is no evidence of restricted diffusion to suggest an acute infarct. Hemorrhage: No evidence of intracranial hemorrhage. Mass Lesion/ Mass Effect: No evidence of an intracranial mass or extra-axial fluid collection. No significant mass effect. Chronic Change: There are no significant white matter changes, for age. Parenchyma: Mild volume loss for age. The brain parenchyma is otherwise within normal limits of signal intensity and morphology. Ventricles: Normal caliber and morphology. Skull Base: Hypothalamic and pituitary region are grossly normal. Craniocervical junction is normal. No significant marrow replacement process. Vasculature: Major intracranial arterial structures, and dural venous sinuses show typical flow void, suggesting patency. Other: Paranasal sinuses and mastoid air cells are clear. The orbits are unremarkable. The extracranial soft tissues are unremarkable. Report Ordering Provider: Kay BARAJAS FINAL REPORT Dictated: 04/19/2023 1:10 pm Alfie Young MD Signed (Electronic Signature): 04/19/2023 1:10 pm Signed by: Alfie Young MD Transcribed by: MILAGRO Technologist: ANA Technical Comments None [facility] Monitor Recordon 04-19-2023 Monitor Record [id number]# 1.00TIFF [facility] Monitor Record [id number]# 1.00TIFF [facility] Monitor Record [id number]# 1.00TIFF [facility] Monitor Record [id number]# 1.00TIFF [facility] PT & PTTon 04-19-2023 aPTT Coag (PPP) [Time] 33.2 second(s) Normal 25.1-36.5 [facility] Comment on above: Result Comment: Para meter 15 days - 4 weeks 1 - 5 months 6 - 11 months 1 - 5 years 6 - 10 years 11 - 17 years PTT Mean: 35.4 (27.6-45.6) Mean: 33.5 (24.8-40.7) Mean: 32.4 (25.1-40.7) Mean: 31.6 (24.0-39.2) Mean: 31.6 (26.9-38.7) Mean: 31.0 (24.6-38.4) Pediatric Reference ranges were obtained from a study by Martin Donohue et al. prepared from 1437 samples obtained at 7 different centers using the same coagulation reagent and instrumentation as [facility]. Currently there are no coagulation studies available worldwide for children to 14 days, and no normal ranges. Heparin therapeutic range (represented by Anti-Factor Xa activity of 0.2 - 0.4 U/mL) corresponds to PTT of 56.6 - 109.0 sec. Performed By: #### 2 [id number], [id number] #### [facility] [address] [place] [id number] INR Coag (PPP) [Relative time] 0.9 {INR} Invalid Interpretation Code [facility] Comment on above: Result Comment: INR results are specifically intended to assess patients stabilized on long-term Anticoagulation therapy suggested INR?s ?Less Intensive Anticoagulation? 2.0 ? 3.0 Conventional Range 3.0 ? 4.5 Performed By: #### 2 [id number], [id number], [id number], [id number] #### [facility] [address] [place] [address] PT Coag (PPP) [Time] 10.3 second(s) Normal 9.4-12.5 [facility] Comment on above: Result Comment: 15 d ays - 4 weeks 1 - 5 months 6 -11 months 1 ? 5 years 6 ? 10 years 11 -17 years Mean: 11.2 (9.5 ? 12.6) Mean: 11.0 (9.7 ? 12.8) Mean: 11.0 (9.8 ? 13.0) Mean: 11.3 (9.9 ? 13.4) Mean: 11.7 (10.0 ? 14.6) Mean: 11.8 (10.0 - 14.1) Pediatric Reference ranges were obtained from a study by cecy Carcamo al. prepared from 1437 samples obtained at 7 different centers using the same coagulation reagent and instrumentation as [facility]. Currently there are no coagulation studies available worldwide for children to 14 days, and no normal ranges. Performed By: #### 2 [id number], [id number], [id number], [id number], [id number] #### [facility] [address] [place] [address] RAD - MRI Screening Formon 0 04-19-2023 RAD - MRI Screening Form [id number]#1 .00TIFF [facility] Troponin 0 Hr.on 04-19-2023 Troponin 2.60 pg/mL Low 15.90-38.40 [facility] Comment on above: Result Comment: The 95% CI (Confidence Interval) PPV (Positive Predictive Value) for myocardial infarction in females is 38 pg/mL, in males 51 pg/mL. The results should be used in conjunction with clinical conditions of myocardial infarction. (Access High Sensitivity Troponin I Instructions For Use, Vu Aris, October 2017) Performed By: #### 2 [id number], [id number], [id number] ####[facility] [address] [place] [address] XR Chest Single Viewon 04-19 XR Chest Single View Exam Date/Time: 04/19/2023 09:37 EST Reason for Exam: Chest pain Report IMPRESSION: NO ACUTE CARDIOPULMONARY DISEASE. CLINICAL HISTORY: Chest pain COMPARISON: NONE. FINDINGS: Osseous structures are intact. Cardiopericardial silhouette is normal. Pulmonary vasculature is normal. Lungs are clear. Ordering Provider: Axel Andrade FINAL REPORT Dictated: 04/19/2023 9:50 am Froilan Macario MD Signed (Electronic Signature): 04/19/2023 9:50 am Signed by: Froilan Macario MD Transcribed by: MILAGRO Technologist: FRANCO, Technical Comments Radiation Dose: Ka,r in mGy = na DAP = na [facility] eGFRon 04-19-2023 eGFR 78 mL/min/1.73 m2 Normal >=59 [facility] Comment on above: Order Comment: Order added by Discern Expert. Performed By: #### 2 [id number], [id number], [id number], [id number] #### [facility] [address] [place] [address] CHEMISTRYOrdered By: SYSTEM SYSTEM on 07-04-2022 Albumin [Mass/Vol] 4.6 g/dL Normal 3.3 - 5.0 gm/dL [facility] Albumin/Globulin [Mass ratio] 1.6 {ratio} Normal 1.1 - 2.2 [facility] ALP [Catalytic activity/Vol] 30 [iU]/d Normal 21 - 98 Int._Unit/L [facility] ALT No additional P-5'-P [Catalytic activity/Vol] 36 [iU]/d Normal 6 - 46 Int._Unit/L [facility] Anion gap [Moles/Vol] 11 mmol/L Normal 6 - 16 mEq/L F [facility] AST [Catalytic activity/Vol] 25 [iU]/d Normal 5 - 43 Int._Unit/L [facility] Bilirubin [Mass/Vol] 1.3 mg/dL High 0.0 - 1 .1 mg/dL [facility] Calcium [Mass/Vol] 9.1 mg/dL Normal 8.9 - 11. 1 mg/dL [facility] Chloride [Moles/Vol] 105 mmol/L Normal 101 - 1 11 mmol/L [facility] Cholesterol [Mass/Vol] 159 mg/dL Normal 120 - 200 mg/dL [facility] Cholesterol in HDL [Mass/Vol] 42 mg/dL Invalid Interpretation Code [facility] Cholesterol in LDL [Mass/Vol] 100 mg/dL Normal <=129mg/dL [facility] Cholesterol in VLDL [Mass/Vol] 18 mg/dL Normal 7 - 40 mg/dL [facility] CO2 [Moles/Vol] 26 mmol/L Normal 21 - 31 mmol/L [facility] Creatinine [Mass/Vol] 1.2 mg/dL Normal 0.5 - 1.3 mg/dL [facility] GFR/1.73 sq M.predicted among non-blacks MDRD (S/P/Bld) [Vol rate/Area] 71 mL/min/1.73 m2 Normal >=59mL/min/1 .73 m2 [facility] Chem S Globulin (S) [Mass/Vol] 2.8 g/dL Normal 1.4 - 4.0 gm/dL [facility] Glucose [Mass/Vol] 177 mg/dL Normal 55 - 199 mg/dL [facility] Potassium [Moles/Vol] 4.5 mmol/L Normal 3.5 - 5.3 mmol/L [facility] Protein [Mass/Vol] 7.4 g/dL Normal 6.0 - 7.8 gm/dL [facility] Sodium [Moles/Vol] 137 mmol/L Normal 135 - 145 mmol/L [facility] Triglyceride [Mass/Vol] 91 mg/dL Normal <=149mg/dL [facility] Urea nitrogen [Mass/Vol] 16 mg/dL Normal 5 - 21 mg/dL [facility] Urea nitrogen/Creatinine [Mass ratio] 13 mg/mg Normal 10 - 20 [facility] CHEMISTRYOrdered By: Hola barrios on 07-04-2022 HbA1c (Bld) [Mass fraction] 7.1 % High <=5.9% [facility] CHEMISTRYOrdered By: Chino Durand on 07-04-2022 Albumin DL <= 20 mg/L (U) [Mass/Vol] 6.7 microgram/mL Normal 0.0 - 19.0 mcg/mL [facility] Creatinine (U) [Mass/Vol] 163.4 mg/dL Invalid Interpretation Code [facility] Microalb/Cr Ratio 4.1 mg/gm Cr Normal 0.0 - 30.0 mg/gm Cr [facility] HEMATOLOGYOrdered By: SYSTEM SYSTEM on 07-04-2022 Basophils/100 WBC (Bld) 0.5 % Normal 0.0 - 2.0 % [facility]eAutoSS Basophils/Leukocytes Auto (Bld) [Pure # fraction] 0.0 E9/L Normal 0.0 - 0.2 E9/L [facility]eAuto[facility] Eosinophils/100 WBC (Bld) 2.3 % Normal 0.0 - 8.0 % [facility]eAutoSS Eosinophils/Leukocytes Auto (Bld) [Pure # fraction] 0.2 E9/L Normal 0.0 - 0.5 E9/L [facility]eAuto[facility] Lymphocytes/100 WBC (Bld) 28.7 % Normal 14.0 - 50.0 % [facility]eAutoSS Lymphocytes/Leukocytes Auto (Bld) [Pure # fraction] 2.1 E9/L Normal 1.0 - 4.0 E9/L [facility]eAutoSS Monocytes/100 WBC (Bld) 7.5 % Normal 4.0 - 14.0 % [facility]eAutoSS Monocytes/Leukocytes Auto (Bld) [Pure # fraction] 0.6 E9/L Normal 0.2 - 1.0 E9/L [facility]AutoSS Neutrophils/100 WBC (Bld) 61.0 % Normal 36.0 - 75.0 % [facility]eAutoSS Neutrophils/Leukocytes Auto (Bld) [Pure # fraction] 4.5 E9/L Normal 2.0 - 7.5 E9/L [facility] HEMATOLOGYOrdered By: Stefania Ruff on 07-04-2022 Erythrocyte distribution width (RBC) [Ratio] 13.3 % Normal 10.9 - 14.2 % [facility]eAutoSS Hematocrit (Bld) [Volume fraction] 49.2 % High 37.7 - 49.0 % [facility]eAutoSS Hemoglobin (Bld) [Mass/Vol] 16.6 g/dL Normal 13.5 - 17.5 gm/dL [facility] MCH (RBC) [Entitic mass] 31.7 pg Normal 27.0 - 34.0 pg [facility] MCHC (RBC) [Mass/Vol] 33.8 g/dL Normal 31.4 - 36.0 gm/dL [facility] MCV (RBC) [Entitic vol] 94.0 fL Normal 80.0 - 100.0 fL [facility]Auto[facility] Platelet mean volume (Bld) [Entitic vol] 7.3 fL Normal 6.4 - 10.8 fL [facility]eAuto[facility] Platelets (Bld) [#/Vol] 188.0 E9/L Normal 150.0 - 500.0 E9/L [facility]eAutoSS RBC (Bld) [#/Vol] 5.2 E12/L Normal 4.3 - 5.9 E12/L [facility] WBC corrected for nucl RBC Auto (Bld) [#/Vol] 7.3 E9/L Normal 4.0 - 11.0 E9/L [facility] CHEMISTRYOrdered By: Ciera Hammond on 10-10-2021 Albumin DL <= 20 mg/L (U) [Mass/Vol] 4.0 microgram/mL Normal 0.0 - 19.0 mcg/mL [facility] Creatinine (U) [Mass/Vol] 140.4 mg/dL Invalid Interpretation Code [facility] Microalb/Cr Ratio 2.8 mg/gm Cr Normal 0.0 - 30.0 mg/gm Cr [facility] CHEMISTRYOrdered By: SYSTEM SYSTEM on 10-10-2021 25-hydroxyvitamin D3 [Mass/Vol] 33.2 ng/mL Normal 30.0 - 100.0 ng/mL [facility] Albumin [Mass/Vol] 4.8 g/dL Normal 3.3 - 5.0 gm/dL [facility] Anion gap [Moles/Vol] 11 mmol/L Normal 6 - 16 mEq/L [facility] Calcium [Mass/Vol] 9.3 mg/dL Normal 8.9 - 11. 1 mg/dL [facility] Chloride [Moles/Vol] 105 mmol/L Normal 101 - 1 11 mmol/L [facility] Cholesterol [Mass/Vol] 159 mg/dL Normal 120 - 200 mg/dL [facility] Cholesterol in HDL [Mass/Vol] 43 mg/dL Invalid Interpretation Code [facility] Cholesterol in LDL [Mass/Vol] 106 mg/dL Normal <=129mg/dL [facility] Cholesterol in VLDL [Mass/Vol] 15 mg/dL Normal 7 - 40 mg/dL [facility] CO2 [Moles/Vol] 27 mmol/L Normal 21 - 31 mmol/L [facility] Creatinine [Mass/Vol] 1.0 mg/dL Normal 0.5 - 1.3 mg/dL [facility] Remisol GFR/1.73 sq M.predicted among blacks MDRD (S/P/Bld) [Vol rate/Area] mL/min/1.73 m2 Normal >=59mL/min/1 .73 m2 [facility] Chem S GFR/1.73 sq M.predicted among non-blacks MDRD (S/P/Bld) [Vol rate/Area] mL/min/1.73 m2 Normal >=59mL/min/1 .73 m2 [facility] Chem S Glucose [Mass/Vol] 139 mg/dL Normal 55 - 199 mg/dL [facility] Remisol Phosphate [Mass/Vol] 3.0 mg/dL Normal 1.9 - 4 .6 mg/dL [facility] Rem[facility] Potassium [Moles/Vol] 4.4 mmol/L Normal 3.5 - 5.3 mmol/L [facility] Remisol Sodium [Moles/Vol] 139 mmol/L Normal 135 - 145 mmol/L [facility] Triglyceride [Mass/Vol] 73 mg/dL Normal <=149mg/dL [facility] Urea nitrogen [Mass/Vol] 21 mg/dL Normal 5 - 21 mg/dL [facility] Urea nitrogen/Creatinine [Mass ratio] 21 mg/mg High 10 - 20 [facility] CHEMISTRYOrdered By: SYSTEM SYSTEM on 06-28-2021 Albumin [Mass/Vol] 4.6 g/dL Normal 3.3 - 5.0 gm/dL [facility] Albumin/Globulin [Mass ratio] 1.5 {ratio} Normal 1.1 - 2.2 [facility] ALP [Catalytic activity/Vol] 41 [iU]/d Normal 21 - 98 Int._Unit/L [facility] ALT No additional P-5'-P [Catalytic activity/Vol] 47 [iU]/d High 6 - 46 Int._Unit/L [facility] Anion gap [Moles/Vol] 16 mmol/L Normal 6 - 16 mEq/L F [facility] AST [Catalytic activity/Vol] 29 [iU]/d Normal 5 - 43 Int._Unit/L [facility] Bilirubin [Mass/Vol] 1.2 mg/dL High 0.0 - 1 .1 mg/dL [facility] Calcium [Mass/Vol] 9.4 mg/dL Normal 8.9 - 11. 1 mg/dL [facility] Chloride [Moles/Vol] 99 mmol/L Low 101 - 1 11 mmol/L [facility] Cholesterol [Mass/Vol] 264 mg/dL High 120 - 200 mg/dL [facility] Cholesterol in HDL [Mass/Vol] 40 mg/dL Invalid Interpretation Code [facility] Cholesterol in LDL [Mass/Vol] 203 mg/dL High <=129mg/dL [facility] Cholesterol in VLDL [Mass/Vol] 33 mg/dL Normal 7 - 40 mg/dL [facility] CO2 [Moles/Vol] 26 mmol/L Normal 21 - 31 mmol/L [facility] Creatinine [Mass/Vol] 1.0 mg/dL Normal 0.5 - 1.3 mg/dL [facility] GFR/1.73 sq M.predicted among blacks MDRD (S/P/Bld) [Vol rate/Area] mL/min/1.73 m2 Normal >=59mL/min/1 .73 m2 [facility] Chem S GFR/1.73 sq M.predicted among non-blacks MDRD (S/P/Bld) [Vol rate/Area] mL/min/1.73 m2 Normal >=59mL/min/1 .73 m2 FT Chem S Globulin (S) [Mass/Vol] 3.0 g/dL Normal 1.4 - 4.0 gm/dL [facility] Glucose [Mass/Vol] 233 mg/dL High 55 - 199 mg/dL [facility] Potassium [Moles/Vol] 4.2 mmol/L Normal 3.5 - 5.3 mmol/L [facility] Prostate specific Ag [Mass/Vol] 2.3 ng/mL Normal 0.1 - 3.5 ng/mL [facility] Protein [Mass/Vol] 7.6 g/dL Normal 6.0 - 7.8 gm/dL [facility] Sodium [Moles/Vol] 137 mmol/L Normal 135 - 145 mmol/L [facility] Triglyceride [Mass/Vol] 164 mg/dL High <=149mg/dL [facility] TSH Qn 1.94 m[IU]/L Normal 0.34 - 5.60 mcIU/mL [facility] Urea nitrogen [Mass/Vol] 18 mg/dL Normal 5 - 21 mg/dL [facility] Urea nitrogen/Creatinine [Mass ratio] 18 mg/mg Normal 10 - 20 [facility] CHEMISTRYOrdered By: Anne Tobias on 06-28-2021 HbA1c (Bld) [Mass fraction] 7.9 % High <=5.9% [facility] HEMATOLOGYOrdered By: SYSTEM SYSTEM on 06-28-2021 Basophils/100 WBC (Bld) 0.8 % Normal 0.0 - 2.0 % [facility]eAuto[facility] Basophils/Leukocytes Auto (Bld) [Pure # fraction] 0.1 E9/L Normal 0.0 - 0.2 E9/L [facility] Eosinophils/100 WBC (Bld) 1.9 % Normal 0.0 - 8.0 % [facility]Auto[facility] Eosinophils/Leukocytes Auto (Bld) [Pure # fraction] 0.2 E9/L Normal 0.0 - 0.5 E9/L [facility] Lymphocytes/100 WBC (Bld) 31.4 % Normal 14.0 - 50.0 % [facility] Lymphocytes/Leukocytes Auto (Bld) [Pure # fraction] 2.6 E9/L Normal 1.0 - 4.0 E9/L [facility] Monocytes/100 WBC (Bld) 8.1 % Normal 4.0 - 14.0 % [facility]eAuto[facility] Monocytes/Leukocytes Auto (Bld) [Pure # fraction] 0.7 E9/L Normal 0.2 - 1.0 E9/L [facility] Neutrophils/100 WBC (Bld) 57.8 % Normal 36.0 - 75.0 % [facility] Neutrophils/Leukocytes Auto (Bld) [Pure # fraction] 4.7 E9/L Normal 2.0 - 7.5 E9/L [facility] HEMATOLOGYOrdered By: Rosy Harmon on 06-28-2021 Erythrocyte distribution width (RBC) [Ratio] 13.5 % Normal 10.9 - 14.2 % [facility] Hematocrit (Bld) [Volume fraction] 45.6 % Normal 37.7 - 49.0 % [facility] Hemoglobin (Bld) [Mass/Vol] 16.2 g/dL Normal 13.5 - 17.5 gm/dL [facility] Comment on above: Result Comment: Slid e reviewed by Specimen warmed for presence of possible cold agglutinin. Results Verified By Repeat Analysis MCH (RBC) [Entitic mass] 32.7 pg Normal 27.0 - 34.0 pg [facility] MCHC (RBC) [Mass/Vol] 35.5 g/dL Normal 31.4 - 36.0 gm/dL [facility] MCV (RBC) [Entitic vol] 92.1 fL Normal 80.0 - 100.0 fL [facility] Platelet mean volume (Bld) [Entitic vol] 7.8 fL Normal 6.4 - 10.8 fL [facility] Platelets (Bld) [#/Vol] 220.0 E9/L Normal 150.0 - 500.0 E9/L [facility] RBC (Bld) [#/Vol] 5.0 E12/L Normal 4.3 - 5.9 E12/L [facility] WBC corrected for nucl RBC Auto (Bld) [#/Vol] 8.1 E9/L Normal 4.0 - 11.0 E9/L [facility] Liliya 07-15-2020 VAL Telephone ([facility]) MARIA ANTONIA BALL ([id number]) 1965 M Date Time Provider Department 07/15/20 PREETI SCHULTZ During your visit today, we recorded the following information about you: Eric Brown 07/15/2020 12:56 PM Signed Pt called to check status of request for office notes to be mailed to him, just wanted to know if they had been sent? Please advise at cell # Thank you, Eric Purvis Mgr 07/15/2020 1:16 PM Signed Spoke to patient and he wants staff to call him back regarding TFE L2-3 L3-[address] Dr[address] Schultz wants to do. Patient has some questions. Please call patient back. Office visit mailed to patient, patient notified.Diann Purvis Mgr Carmencita Cedillo APRN.EXCEPTIONAL CHILDREN TEACHER ASSISTANT 07/15/2020 2:18 PM Signed Spoke with patient to answer questions regarding upcoming procedure. He verbalized understanding. Carmencita Cedillo APRN.EXCEPTIONAL CHILDREN TEACHER ASSISTANT July 15, 2020 Allergies As of Date: 07/15/2020 Noted Allergy Reaction PENICILLINS 10/17/2019 11 - Vomiting Date Reviewed: 07/13/2020 Reviewed by: Loli Constantino Ma - Fully Assessed Reason for Visit: Patient Question [0773] Prescriptions as of 07/15/2020 Sig: METFORMIN 1,000 MG TABLET Take 500 mg by mouth three ti* CYCLOBENZAPRINE 10 MG TABLET Take 1 tablet by mouth every * Problem List As Of Date: 07/15/2020 (None) Encounter Status:Closed by ERIC RANDOLPH on 07/15/20 [facility] [place] 07-13-2020 CNOV Office Visit ([facility] ) MARIA ANTONIA BALL ([id number]) 1965 M Date Time Provider Department 07/13/20 1:30 PM PREETI SCHULTZ During your visit today, we recorded the following information about you: Weight 86.2 kg Preeti Schultz MD 07/13/2020 4:54 PM Signed History and Physical Assessment Patient Name: Maria Antonia Ball MR #: [id number] Age: [age] year old Date: July 11, 2020 Referred by: Dr. Guerin Chief Complaint: This patient is a 55 year old male who presents today with complaints of back pain. 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 Started originally 9 months ago. Was treated with Motrin, flexeril Previous Treatments: OTC Meds: Tylenol Effect: no relief Prescription Meds: steroids and muscle relaxers Effect: no relief General: no relief. Effect: no relief Assistive Devices: NA Physical Therapy: Yes. Effect: relief Injection(s): epidural injection. Effect: no relief Previous Surgery: No Imaging Results: xr lumbar 10/17/2019 This Episode: Date of Onset for this episode: 9 months ago Pattern: Constant. Character: Burning and Aching. Severity: VAS Pain: 5/10 Current; 10/10 Worst; 5/10 Best. Location: low back Radiation: radiating to left leg sometimes. Exacerbating Factors: Bending, Walking and Standing. Alleviating Factors: Nothing makes my pain better . Associated Signs/Symptoms: Sleep disturbance; awakens during night due to pain. Sensory/Motor Changes: Tingling or Numbness. Progressive Weakness?: No. AM Stiffness?: Yes. Duration: constant. Changes in Bowel/Bladder Control?: No. Location of Joint Swelling: Not Applicable. Location of Joint Pain: Low Back. Effects of Pain: Personal Care: Independent . Household Tasks: Independent . Job Functions: Independent . Review of Systems: General Appearance: well developed, well groomed and pleasant. General: Normal/Negative. Skin: Normal/Negative. Heart/Lungs: Normal/Negative. GI: Normal/Negative. /COMMUNITY SUPPORT SPECIALIST: Normal/Negative. Heme: Normal/Negative. Endo: diabetes and Normal/Negative. Neuro: depression. HEENT: Normal/Negative Skeletal: muscle weakness and muscle pains. No past medical history on file. No past surgical history on file. Social History Tobacco Use - Smoking status: Never Smoker - Smokeless tobacco: Never Used Substance Use Topics - Alcohol use: Not on file - Drug use: Not on file No family history on file.[id number] Allergies: ALLERGIES Allergen Reactions - Penicillins Vomiting Current Outpatient Medications: metFORMIN (GLUCOPHAGE) 1,000 mg tablet Take 500 mg by mouth three times daily. cyclobenzaprine (FLEXERIL) 10 mg tablet Take 1 tablet by mouth every 8 hours as needed for Muscle Spasm (or pain). Is patient on blood thinners? No Patient feels safe at home: Yes Education Associate: Loli Constantino Ma Patient is a 55-year-old white male self-referred for a second opinion. Patient injured his back in the job in October 2019 and has been experiencing back pain since his injury. Patient denies any previous history of back pain before that incidence He states following his injury he was evaluated and diagnosed with lumbar sprain. He was treated conservatively with Motrin and Flexeril however he continue experiencing residual pain that required further investigation. He had an MRI done and he was seen by pain management in [facility]. Patient also had 1 epidural steroid injection which was not associated with any major pain relief. Currently he is experiencing mostly axial pain. This pain is localized to the lumbar area. Most of the pain is localized to the midline and travel up and down the spine. It is associated with sensory changes and pcdd-uve-pvvlkew in the anterior aspect of the left thigh. Patient also feels some weakness in the left lower extremity. He stated that the pain is there all the time however it gets much worse with any kind of activities especially changing position even from sitting to standing or from standing to sitting. Bending is also associated with remarkable exacerbation of the pain. He denies any bowel or bladder disturbance. Patient has been doing physical therapy with this is partially helping. He is currently on zulx-guv-chljgyn anti-inflammatories and cyclobenzaprine. Past medical history, past surgical history, family history, social history, allergies, medication, and review of system will all reviewed On exam alert oriented pleasant white male no acute distress. Vital signs stable. Head normocephalic with no evidence of trauma. Pupils are round equal reactive to light and accommodation. Neck was supple with no JVD. Range of movement of the cervical spine slightly limited patient complained of pain in the mid and lower back with some of the neck movement. Palpation of the (more content not included)... Normal [facility] Capillary blood glucose cong urement by glucometer (mass/volume)on 05-30-2020 Glucose [Mass/Vol] 175 mg/dL [facility] Comment on above: Random Glucose Refer ence Range is dependent on time and content of last meal. Glucose of more than 200 mg/dL in a nonstressed, ambulatory subject supports the diagnosis of Diabetes Mellitus. Glucose Poct Glucometerson 0 05-30-2020 Glucose [Mass/Vol] 175 mg/dL Normal [facility] Comment on above: Result Comment: [place] om Glucose Reference Range is dependent on time and content of last meal. Glucose of more than 200 mg/dL in a nonstressed, ambulatory subject supports the diagnosis of Diabetes Mellitus. PERFORMED BY: [facility] [address] [place] [address] PATHOLOGIST PYTHON DJANGO DEVELOPER CHAD SHELLEY M.D. 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 This test has not been FDA cleared or approved. This test has been authorized by FDA under an Emergency Use Authorization (EUA). This test has been validated in accordance with the FDA's Guidance Document (Policy for Diagnostics Testing in Laboratories Certified to Perform High Complexity Testing under CLIA prior to Emergency Use Authorization for Coronavirus Disease-2019 during the Public Health Emergency) issued on June 11, 2019. This test is only authorized for the duration of time the declaration that circumstances exist justifying the authorization of the emergency use of in vitro diagnostic tests for detection of SARS-CoV-2 virus and/or diagnosis of COVID-19 infection under section 564(b)(1) of the Act, 21 U.S.C. 360bbb-3(b)(1), unless the authorization is terminated or revoked sooner. PERFORMED BY: [place] [id number] PATHOLOGIST PYTHON DJANGO DEVELOPER CHAD SHELLEY M.D. Performed By: #### C OVID-19 [facility] #### [place] [id number] [facility] COVID-19 Positive/Negativeon 05-26-2020 COVID-19 Positive/Negative Negative Negative [facility] Comment on above: Reference: NegativeT esting for SARS-CoV-2 by RT-PCRThis test was developed and its performance characteristics determined by [employer] [employer] ([facility]) and validated at the [facility]. This test has not been FDA cleared or approved. This test has been authorized by FDA under an Emergency Use Authorization (EUA). This test has been validated in accordance with the FDA's Guidance Document (Policy for Diagnostics Testing in Laboratories Certified to Perform High Complexity Testing under CLIA prior to Emergency Use Authorization for Coronavirus Disease-2019 during the Public Health Emergency) issued on June 11, 2019. This test is only authorized for the duration of time the declaration that circumstances exist justifying the authorization of the emergency use of in vitro diagnostic tests for detection of SARS-CoV-2 virus and/or diagnosis of COVID-19 infection under section 564(b)(1) of the Act, 21 U.S.C. 360bbb-3(b)(1), unless the authorization is terminated or revoked sooner. Otheron 05-26-2020 Coronavirus 2019 PCR Interp N/A [facility] ED NOTEon 10-17-2019 ED NOTE HNO ID: [id number] Author: Eric (Rn) ANA Boone Service: Nursing Author Type: Registered Nurse Type: ED Notes Filed: 10/17/2019 2:26 PM Note Text: Patient presents to ED for complaint of low back pain. Patient states the problem is acute. Patient states pain is 8 on 0-10 scale and sharp. There is: negative Loss of bladder control negative Loss of bowel control negative Radiation of pain to Urine sample Not obtained States while at work he had sudden onset of back pain while lifting [facility] ED NOTE HNO ID: [id number] Author: Margarita FarmerRn) ANA Burger Service: ? Author Type: Registered Nurse Type: ED Notes Filed: 10/17/2019 2:18 PM Note Text: Bed: ED-02H Expected date: Expected time: Means of arrival: Comments: [facility] ED NOTE HNO ID: [id number] Author: Larisa FarmerRn) ANA Cheema Service: Nursing Author Type: Registered Nurse Type: ED Notes Filed: 10/17/2019 2:16 PM Note Text: Pt presents to ER for evaluation of lower back pain after an injury at work today. Pt states that he was putting a hand brake on and experienced lower back pain. No loss of bowel or bladder. [facility] ED PROV NOTEon 10-17-2019 ED PROV NOTE HNO ID: [id number] Author: Stefan Knapp II, MD Service: ? Author Type: Physician Type: ED Provider Notes Filed: 10/17/2019 5:41 PM Note Text: ED Provider Note Patient Name: Maria Antonia Ball SERVICE DATE: 10/17/19 History Patient presents with: Low Back Pain: x 2 hours Bwc (Worker's Comp) Patient was at work putting a hand brake on today when he developed sudden onset of diffuse low back pain, sharp and dull, nonradiating, worse with any movement, severe. Denies any numbness, tingling, focal weakness, or bowel or bladder dysfunction. Took no medications prior to coming in for symptoms. History reviewed. No pertinent past medical history. History reviewed. No pertinent surgical history. No family history on file. Social History Tobacco Use - Smoking status: Never Smoker - Smokeless tobacco: Never Used Substance and Sexual Activity - Alcohol use: Not on file - Drug use: Not on file - Sexual activity: Not on file ALLERGIES Allergen Reactions - Penicillins Vomiting Physical Exam BP 122/91 Pulse 82 Temp (Src) 98.4 (Oral) Resp 18 Wt 190 lb (86.2kg) SpO2 97% O2 Therapy: Room Air Physical Exam Constitutional: Appearance: He is not ill-appearing or diaphoretic. HENT: Head: Normocephalic and atraumatic. Eyes: General: No scleral icterus. Musculoskeletal: Comments: There is mild to moderate mid to low midline lumbar tenderness as well as tenderness throughout the paraspinal musculature in the lumbar region. Neurological: Mental Status: He is alert. Comments: He is alert, appropriate, with normal strength of both lower extremities. Psychiatric: Mood and Affect: Mood normal. Diagnostic Testing ED Labs Ordered and Reviewed - No data to display XR LUMBAR GENERAL 3V AP/LAT/L5-S1 Final Result IMPRESSION: No evidence of fracture . Degenerative changes at the L2-3 and facet joints of the L4-5 and L5-S1.. Stucco Worker: PSCB Transcribe Date/Time: Oct 17 2019 3:05P Dictated by : RODRIGO ESCUDERO MD This examination was interpreted and the report reviewed and electronically signed by: RODRIGO ESCUDERO MD on Oct 17 2019 3:19PM EST Procedures ED Course / Clinical Impression Clinical Impressions as of Oct 17 1739 Strain of lumbar region, initial encounter Spondylosis of lumbar region without myelopathy or radiculopathy MDM / Disposition / Plan x-ray shows evidence of degenerative joint disease of the lumbar spine. During the emergency department course the patient told the nurse that he felt like he had some numbness below the knees on both legs. I went to assess him again and he stated that this was completely gone. At no time did he have any saddle anesthesias or saddle paresthesias. Also as noted above he has had no bowel or bladder dysfunction and has normal strength of both lower extremities. Given Motrin and Flexeril with improvement. Care plan and precautions discussed in detail. Discharged home. SIGNATURE: MD Stefan Zapata II, II, MD 10/17/19 1741 [facility] PROGRESSon 10-17-2019 PROGRESS HNO ID: [id number] Author: Madeline Virgen (Rt) Service: Radiology Author Type: Vault Custodian Type: Progress Notes Filed: 10/17/2019 3:01 PM Note Text: Radiology Service Progress Note PATIENT NAME: Maria Antonia Ball DATE OF SERVICE: October 17, 2019 TIME: 3:01 PM PATIENT IDENTITY VERIFICATION COMPLETED USING TWO (2) IDENTIFIERS: Name and Date of confirmed by patient verbally and Name and Date of confirmed by identification band. FALL SCREENING: Has the patient had 2 falls in the last year or 1 fall with injury or currently using an Ambulatory Assistive Device (Walker, Cane, Wheelchair, Crutches, etc.)? No PATIENT GENDER DATA: Male PATIENT RELEVANT IMPLANT DATA REVIEWED: Not Applicable RADIOLOGY DEPARTMENT: General X-ray: Exam(s) Completed: Spine X-Ray(s): Lumbar AP / LAT / L5-S1 PERIPHERAL IV DATA: Not applicable SIGNED BY: RT Valentina October 17, 2019 3:01 PM [facility] XR LUMBAR 3V AP/LAT/L5-S1on 10-17-2019 XR LUMBAR 3V AP/LAT/L5-S1 * * *Final Report* * * DATE OF EXAM: Oct 17 2019 3:00PM [id number] [id number] - XR LUMBAR 3V AP/LAT/L5-S1 / PROCEDURE REASON: Back pain, minor trauma * * * * Physician Interpretation * * * * HISTORY: Low back pain, minor trauma LUMBAR SPINE: TECHNIQUE: Frontal and lateral views of the lumbar spine, and coned down view of the lumbosacral junction RESULT: For the purposes of this report, L5-S1 is considered the last lumbar type disc space and L4-5 is considered the level of the iliac crest. No evidence of fracture, subluxation, or spondylolysis. Intervertebral disc space narrowing with marginal spurs at L2-3. Degenerative changes at the facet joints of the L4-5 and L5-S1. The remainder of intervertebral disc spaces are maintained. No other significant bony or joint abnormality is noted. IMPRESSION: No evidence of fracture . Degenerative changes at the L2-3 and facet joints of the L4-5 and L5-S1.. Stucco Worker: PSCB Transcribe Date/Time: Oct 17 2019 3:05P Dictated by : RODRIGO ESCUDERO MD This examination was interpreted and the report reviewed and electronically signed by: RODRIGO ESCUDERO MD on Oct 17 2019 3:19PM EST [id number] [facility] Vital Signs Date Time Vital Sign Value Performing Clinician Facility 09-27-2023 14:37-0400 Blood Pressure Location Scripped [facility] 09-27-2023 14:37-0400 Diastolic blood pressure 82 mm[Hg] Emy Orzech [facility] 09-27-2023 14:37-0400 Heart rate 74 /min Emy Orzech [facility] 09-27-2023 14:37-0400 Systolic blood pressure 140 mm[Hg] Emy Orzech [facility] 07-05-2023 14:24-0400 Blood Pressure Location Maria Antonia FELIX [facility] 07-05-2023 14:24-0400 Body temperature 97.52 [degF] Maria Antonia FELIX [facility] 07-05-2023 14:24-0400 Diastolic blood pressure 62 mm[Hg] Maria Antonia FELIX [facility] 07-05-2023 14:24-0400 Heart rate 80 /min Maria Antonia FELIX [facility] 07-05-2023 14:24-0400 SaO2% (BldA) [Mass fraction] 98 % Maria Antonia FELIX [facility] 07-05-2023 14:24-0400 Systolic blood pressure 128 mm[Hg] Maria Antonia FELIX [facility] 04-20-2023 09:28-0500 [facility] 09:28-0500 Promise to Return Kay MURILLODOMINGO [facility] 04-20-2023 08:53-0500 [facility] 04-20-2023 08:47-0500 Diastolic blood pressure 73 mm[Hg] [facility] 04-20-[facility]23 08:47-0500 Systolic blood pressure 119 mm[Hg] [facility] 04-20-2023 08:45-0500 gluc 185 mg/dL [facility] 04-20-2023 08:41-0500 Hourly Rounding [facility] 04-20-2023 08:41-0500 Promise to Return [facility] 04-20-2023 07:00-0500 Blood Pressure Location [facility] 04-20-2023 07:00-0500 Body temperature 98.24 [degF] [facility] 04-20-2023 07:00-0500 Heart rate 91 /min [facility] 04-20-2023 07:00-0500 Mean blood pressure 88 mm[Hg] [facility] 04-20-2023 07:00-0500 Respiratory rate 18 /min [facility] 04-20-2023 07:00-0500 SaO2% (BldA) [Mass fraction] 97 % [facility] 04-20-2023 06:09-0500 Promise to Return [facility] 04-20-2023 04:17-0500 Heart rate 61 /min [facility] 04-20-2023 04:17-0500 SaO2% (BldA) [Mass fraction] 99 % [facility] 04-20-2023 04:16-0500 Diastolic blood pressure 81 mm[Hg] [facility] 04-20-2023 04:16-0500 Mean blood pressure 100 mm[Hg] [facility] 04-20-2023 04:16-0500 Systolic blood pressure 137 mm[Hg] [facility] 04-20-2023 04:16-0500 Body temperature 97.88 [degF] [facility] 04-20-2023 01:00-0500 Body temperature 97.88 [degF] [facility] 04-20-2023 01:00-0500 Heart rate 77 /min [facility] 04-20-2023 01:00-0500 SaO2% (BldA) [Mass fraction] 98 % [facility] 04-19-2023 19:57-0500 Mean blood pressure 93 mm[Hg] [facility] 04-19-2023 16:06-0500 gluc 196 mg/dL [facility] 04-19-2023 15:46-0500 Mean blood pressure 88 mm[Hg] [facility] 04-19-2023 13:45-0500 Blood Pressure Location [facility] 04-19-2023 13:45-0500 Heart rate 64 /min [facility] 04-19-2023 11:30-0500 Mean blood pressure 92 mm[Hg] [facility] 04-19-2023 11:30-0500 Respiratory rate 17 /min [facility] 04-19-2023 10:07-0500 Respiratory rate 13 /min [facility] 04-19-2023 09:28-0500 Respiratory rate 16 /min [facility] 04-19-2023 09:20-0500 gluc 183 mg/dL [facility] 04-19-2023 09:20-0500 gluc [facility] 04-19-2023 09:11-0500 Heart rate 104 /min [facility] 10-18-2021 13:43-0400 Blood Pressure Location Ernst Watkins [facility] 10-18-2021 13:43-0400 Diastolic blood pressure 70 mm[Hg] Ernst Watkins [facility] 10-18-2021 13:43-0400 Heart rate 63 /min Ernst Watkins [facility] 10-18-2021 13:43-0400 Respiratory rate 18 /min Ernst Watkins [facility] 10-18-2021 13:43-0400 SaO2% (BldA) [Mass fraction] 98 % Ernst Watkins [facility] 10-18-2021 13:43-0400 Systolic blood pressure 108 mm[Hg] Ernst Watkins [facility] 08-18-2021 07:48-0400 Blood Pressure Location Maria Antonia FELIX [facility] 08-18-2021 07:48-0400 Body temperature 98.6 [degF] Maria Antonia FELIX [facility] 08-18-2021 07:48-0400 Diastolic blood pressure 76 mm[Hg] Maria Antonia FELIX [facility] 08-18-2021 07:48-0400 Heart rate 113 /min Maria Antonia FELIX [facility] 08-18-2021 07:48-0400 SaO2% (BldA) [Mass fraction] 98 % Maria Antonia FELIX [facility] 08-18-2021 07:48-0400 Systolic blood pressure 126 mm[Hg] Maria Antonia FELIX [facility] 05-30-2020 11:11-0400 BP Diastolic 80 mm[Hg] Juve Garza [facility] 05-30-2020 11:11-0400 BP Systolic 111 mm[Hg] [facility] 05-30-2020 11:11-0400 Pulse (Heart Rate) 89 /min [facility] 05-30-2020 11:11-0400 Pulse Oximetry 96 % [facility] 05-30-2020 11:11-0400 Respiratory Rate 20 /min [facility] 05-30-2020 08:52-0400 BMI (Body Mass Index) 27.2 kg/m2 [facility] 05-30-2020 08:52-0400 Body weight 86.18 kg Juve Singh [facility] 05-30-2020 08:52-0400 Height 177.8 cm Ju[facility] Encounters Encounter Date Encounter Type Care Provider Facility Start: 07-13-2024 ambulatory Maria Antonia FELIX Facility: [facility] Start: 01-20-2024 ambulatory Juno REDDY Facili ty:[facility] [place] Start: 12-30-2023 ambulatory Juno REDDY Facili ty:[facility] [place] Start: 12-26-2023 ambulatory Juno REDDY Facili ty:[id number] Start: 12-10-2023 End: 12-10-2023 ambulatory Juno REDDY Facility:[facility] Start: 12-10-2023 End: 12-10-2023 Patient encounter procedure Juno REDDY [facility] Start: 12-03-2023 End: 12-03-2023 ambulatory Juno REDDY Facility:[facility] Start: 12-03-2023 End: 12-03-2023 Patient encounter procedure Juno REDDY [facility] Start: 09-27-2023 End: 09-27-2023 ambulatory Emy X Dorich Facility:[facility] Start: 09-27-2023 End: 09-27-2023 Patient encounter procedure Emy X Orzech [facility] [place] Start: 08-13-2023 End: 08-13-2023 ambulatory JEREMIAS TORO Not Available Start: 07-12-2023 End: 07-12-2023 ambulatory Maria Antonia FELIX Facility:[facility] Start: 07-12-2023 End: 07-12-2023 Patient encounter procedure Maria Antonia FELIX [facility] Start: 07-05-2023 End: 07-05-2023 ambulatory Maria Antonia FELIX Facility:[facility] Start: 07-05-2023 End: 07-05-2023 Patient encounter procedure Maria Antonia FELIX [facility] Start: 07-05-2023 End: 07-05-2023 Well adult monitoring check done Maria Antonia FELIX [facility] Start: 06-22-2023 End: 06-22-2023 ambulatory Maria Antonia FELIX Facility:[facility] Start: 06-22-2023 End: 06-22-2023 Patient encounter procedure Maria Antonia FELIX [facility] Start: 04-22-2023 End: 05-03-2023 ambulatory Maria Antonia FELIX Facility:[id number] Start: 04-19-2023 End: 04-20-2023 ambulatory Jonatan Bowers Facility:[facility] Start: 04-19-2023 End: 04-20-2023 Observation Kay BARAJAS [facility] Start: 07-04-2022 End: 07-04-2022 Patient encounter procedure Maria Antonia FELIX [facility] Start: 04-25-2022 End: 04-26-2022 Pre-admission assessment Ernst Watkins [facility] Start: 10-18-2021 End: 10-18-2021 Patient encounter procedure Ernst Watkins [facility] Start: 10-10-2021 End: 10-10-2021 Patient encounter procedure GINGER Heck ROBERTO [facility] Start: 08-18-2021 End: 08-18-2021 Patient encounter procedure Maria Antonia FELIX [facility] Start: 08-18-2021 End: 08-18-2021 Well adult monitoring check done Maria Antonia FELIX [facility] Start: 06-28-2021 End: 06-28-2021 Patient encounter procedure Maria Antonia FELIX [facility] Start: 02-27-2021 End: 05-28-2021 Recurring Maria Antonia FELIX [facility] Start: 02-27-2021 End: 05-28-2021 Special examination status Maria Antonia FELIX [facility] Start: 05-30-2020 End: 05-30-2020 Admission to day surgery Juve Garza [facility] Start: 05-26-2020 End: 05-26-2020 Patient encounter procedure Juve Garza -Pre-Surgical Testing Procedures Date Procedure Procedure Detail Performing Clinician Start: 12-13-2020 Injection of facet joint using fluoroscopic guidance Maria Antonia FELIX Comment on above: L3/4 L4/5B 0% relief Start: 10-04-2020 Injection of nerve root of lumbar spine using fluoroscopic guidance Maria Antonia FELIX Comment on above: L2/3 0% Start: 05-30-2020 Esophagogastroduodenoscopy Juve james Start: 04-19-2020 Epidural injection of lumbar spine using fluoroscopic guidance Maria Antonia FELIX Comment on above: L1-2 0% relief Appendectomy Maria Antonia FELIX Colonoscopy Maria Antonia FELIX Immunizations Immunization Date Immunization Notes Care Provider Fa cili 03-06-2021 SARS-CoV-2 (COVID-19 ) [id number] vaccine Maria Antonia FELIX [facility] [facility] Comment on above: Result Comment: 2021: TPV50 05-31-2020 SARS-CoV-2 (COVID-19 ) Ad26 vaccine, recombinant Maria Antonia FELIX [facility] Comment on above: Result Comment: 2021: TPV50 11-23-2016 tetanus toxoid, reduced diphtheria toxoid, and acellular pertussis vaccine, adsorbed Maria Antonia FELIX [facility] NEGATED: Highlighted row has not occurred!03-16-2020 influenza virus vaccine, unspecified formulation Maria Antonia FELIX [facility] Payers Date Payer Category Payer Unknown [id number] 1965 Unknown [id number] 2.16.84 [id number] 1965 Unknown [id number] 2.16.8 [id number] 1965 Unknown [id number] 2.16.8 [id number] 1965 Unknown [id number] 2.16.8 [id number] 1965 Unknown [id number] 2.16.8 [id number] 1965 Unknown [id number] 2.16.8 [id number] 1965 Unknown [id number] 2.16.8 [id number] 1965 Unknown [id number] 2.16.8 [id number] 1965 Unknown [id number] 2.16.8 [id number] 1965 Unknown [id number] 2.16.8 [id number] 1965 Unknown [id number] 2.16.8 [id number] Self-pay Self Pay [id number] Unknown Self Pay [id number] Social History Date Type Detail Facility Start: 05-30-2020 End: 09-27-2023 Tobacco smoking status [facility] Ex-smoker (finding) [facility] Start: 1965 Sex Assigned At Male [facility] Tobacco smoking status Never [facility] Sex Assigned At Male [facility] Medical Equipment Procedure Code Equipment Code Equipment Origin al Text Equipment Identifier Dates See Instructions , One Touch Verio Test Strips tests bid Dx: E11.9 Start: 08-18-2021 See Instructions , One Touch Verio Test Strips tests bid Dx: E11.9 Start: 08-18-2021 See Instructions , One Touch Verio Test Strips tests bid Dx: E11.9 Start: 08-18-2021 See Instructions , One Touch Verio Test Strips tests bid Dx: E11.9 Start: 08-18-2021 See Instructions , One Touch Verio Test Strips tests bid Dx: E11.9 Start: 08-18-2021 See Instructions , One Touch Verio Test Strips tests bid Dx: E11.9 Start: 08-18-2021 See Instructions , One Touch Verio Test Strips tests bid Dx: E11.9 Start: 08-18-2021 Goals Date Patient Goal Desired Activity /State Functional Status Date Assessment Result Facility 12-03-2023 Functional Status N/A [facility] 09-27-2023 Functional Status N/A [facility] 07-05-2023 Functional Status N/A [facility] 04-19-2023 Functional Status No [facility] 04-19-2023 Functional Status [facility] 10-18-2021 Functional Status N/A [facility] Clinical Notes 07-13-2020 to 12-03-2023 Note Date & Type Note Facility 12-03-2023 Hospital Discharg e instructions Patient Education 12/03/2023 15:25:48 Transurethral Resection of the Prostate Transurethral Resection of the Prostate Transurethral resection of the prostate (TURP) is the removal, or resection, of part of the prostate tissue. This procedure is done to treat an enlarged prostate gland (benign prostatic hyperplasia). The goal of TURP is to remove enough prostate tissue to allow for a normal flow of urine. The procedure will allow you to empty your bladder more completely when you urinate so that you can urinate less often. In a transurethral resection, a thin telescope with a light, a camera, and an electric cutting edge (resectoscope) is passed through the urethra and into the prostate. The opening of the urethra is at the end of the penis. Tell a health care provider about: Any allergies you have. All medicines you are taking, including vitamins, herbs, eye drops, creams, and dxiw-exj-tnzepji medicines. Any problems you or family members have had with anesthetic medicines. Any bleeding problems you have. Any surgeries you have had. Any medical conditions you have. Any prostate infections you have had. What are the risks? Generally, this is a safe procedure. However, problems may occur, including: Infection. Bleeding. Allergic reactions to medicines. Blood in the urine (hematuria). Damage to nearby structures or organs. Other problems may occur, but they are rare. They include: Dry ejaculation, or having no semen come out during orgasm. Erectile dysfunction, or being unable to have or keep an erection. Scarring that leads to narrowing of the urethra. This narrowing may block the flow of urine. Inability to control when you urinate (incontinence). Deep vein thrombosis. This is a blood clot that can develop in your leg. TURP syndrome. This can happen when you lose too much sodium during or after the procedure. Some signs and symptoms of this condition include: ?Weakness. ?Headaches. ?Nausea or vomiting. ?Muscle cramping. What happens before the procedure? When to stop eating and drinking Follow instructions from your health care provider about what you may eat and drink before your procedure. These may include: 8 hours before your procedure ?Stop eating most foods. Do not eat meat, fried foods, or fatty foods. ?Eat only light foods, such as toast or crackers. ?All liquids are okay except energy drinks and alcohol. 6 hours before your procedure ?Stop eating. ?Drink only clear liquids, such as water, clear fruit juice, black coffee, plain tea, and sports drinks. ?Do not drink energy drinks or alcohol. 2 hours before your procedure ?Stop drinking all liquids. ?You may be allowed to take medicines with small sips of water. If you do not follow your health care provider's instructions, your procedure may be delayed or canceled. Medicines Ask your health care provider about: Changing or stopping your regular medicines. This is especially important if you are taking diabetes medicines or blood thinners. Taking medicines such as aspirin and ibuprofen. These medicines can thin your blood. Do not take these medicines unless your health care provider tells you to take them. Taking oakp-xsp-cxiwpjq medicines, vitamins, herbs, and supplements. Surgery safety Ask your health care provider what steps will be taken to help prevent infection. These steps may include: Removing hair at the surgery site. Washing skin with a germ-killing soap. Taking antibiotic medicine. General instructions Do not use any products that contain nicotine or tobacco for at least 4 weeks before the procedure. These products include cigarettes, chewing tobacco, and vaping devices, such as e-cigarettes. If you need help quitting, ask your health care provider. If you will be going home right after the procedure, plan to have a responsible adult: ?Take you home from the hospital or clinic. You will not be allowed to drive. ?Care for you for the time you are told. What happens during the procedure? An IV will be inserted into one of your veins. You will be given one or more of the following: ?A medicine to help you relax (sedative). ?A medicine to make you fall asleep (general anesthetic). ?A medicine that is injected into your spine to numb the area below and slightly above the injection site (spinal anesthetic). Your legs will be placed in foot rests (stirrups) so that your legs are apart and your knees are bent. The resectoscope will be passed through your urethra to your prostate. Parts of your prostate will be resected using the cutting edge of the resectoscope. Fluid will be passed to rinse out the cut tissues (irrigation). The resectoscope will be removed. A small, thin tube (catheter) will be passed through your urethra and into your bladder. The catheter will drain urine into a bag outside of your body. The procedure may vary among health care providers and hospitals. What happens after the procedure? Your blood pressure, heart rate, breathing rate, and blood oxygen level will be monitored until you leave the hospital or clinic. You will be given fluids through the IV. The IV will be removed when you start eating and drinking normally. You may have some pain. Pain medicine will be available to help you. You will have a catheter draining your urine. ?You may have blood in your urine. Your catheter may be kept in until your urine is clear. ?Your urinary drainage will be monitored. If necessary, your bladder may be rinsed out (irrigated) through your catheter. You will be encouraged to walk around as soon as possible. You may have to wear compression stockings. These stockings help to prevent blood clots and reduce swelling in your legs. If you were given a sedative during the procedure, it can affect you for several hours. Do not drive or operate machinery until your health care provider says that it is safe. Summary Transurethral resection of the prostate (TURP) is the removal (resection) of part of the prostate tissue. The goal of this procedure is to remove enough prostate tissue to allow for a normal flow of urine. Follow instructions from your health care provider about taking medicines and about eating and drinking before the procedure. This information is not intended to replace advice given to you by your health care provider. Make sure you discuss any questions you have with your health care provider. Document Revised: 11/21/2021 Document Reviewed: 11/21/2021 Elsevier Patient Education 2023 [employer]. 12/03/2023 15:02:27 EU - Cystoscopy Discharge Instructions (CUSTOM) Cystoscopy Voiding after the procedure: there may be some pain, burning, urgency, frequency and blood tinged urine following the procedure. These symptoms usually resolve within 2-5 days. Drink the amount of fluid it takes to keep the urine pink to yellow or clear in color. Drinking enough water and fluids will help to ease any discomfort after your procedure. If you are having problems that seem out of the ordinary, please call. If unable to contact your physician and you feel it is an emergency, go to the nearest emergency room or call 911 Diet you may resume your normal diet. Activity you may resume your normal activities Call if you have a fever over 100 degrees. Follow Up Care 10/17/2023 14:16:48 With:Juno REDDY Address: [address] [place], [place] [id number] Business (1) When: Unknown Comments:Office will call to schedule follow up [facility] 12-03-2023 Note Patient Education Cystoscopy ? Voiding after the procedure: there may be some pain, burning, urgency, frequency and blood tinged urine following the procedure. These symptoms usually resolve within 2-5 days. Drink the amount of fluid it takes to keep the urine pink to yellow or clear in color. Drinking enough water and fluids will help to ease any discomfort after your procedure. ? If you are having problems that seem out of the ordinary, please call. ? If unable to contact your physician and you feel it is an emergency, go to the nearest emergency room or call 911 ? Diet ? you may resume your normal diet. ? Activity ? you may resume your normal activities ? Call if you have a fever over 100 degrees. Urology Transurethral Resection of the Prostate Transurethral resection of the prostate (TURP) is the removal, or resection, of part of the prostate tissue. This procedure is done to treat an enlarged prostate gland (benign prostatic hyperplasia). The goal of TURP is to remove enough prostate tissue to allow for a normal flow of urine. The procedure will allow you to empty your bladder more completely when you urinate so that you can urinate less often. In a transurethral resection, a thin telescope with a light, a camera, and an electric cutting edge (resectoscope) is passed through the urethra and into the prostate. The opening of the urethra is at the end of the penis. Tell a health care provider about: ? Any allergies you have. ? All medicines you are taking, including vitamins, herbs, eye drops, creams, and rwmr-aft-ztqiaoo medicines. ? Any problems you or family members have had with anesthetic medicines. ? Any bleeding problems you have. ? Any surgeries you have had. ? Any medical conditions you have. ? Any prostate infections you have had. What are the risks? Generally, this is a safe procedure. However, problems may occur, including: ? Infection. ? Bleeding. ? Allergic reactions to medicines. ? Blood in the urine (hematuria). ? Damage to nearby structures or organs. Other problems may occur, but they are rare. They include: ? Dry ejaculation, or having no semen come out during orgasm. ? Erectile dysfunction, or being unable to have or keep an erection. ? Scarring that leads to narrowing of the urethra. This narrowing may block the flow of urine. ? Inability to control when you urinate (incontinence). ? Deep vein thrombosis. This is a blood clot that can develop in your leg. ? TURP syndrome. This can happen when you lose too much sodium during or after the procedure. Some signs and symptoms of this condition include: ? Weakness. ? Headaches. ? Nausea or vomiting. ? Muscle cramping. What happens before the procedure? When to stop eating and drinking Follow instructions from your health care provider about what you may eat and drink before your procedure. These may include: ? 8 hours before your procedure ? Stop eating most foods. Do not eat meat, fried foods, or fatty foods. ? Eat only light foods, such as toast or crackers. ? All liquids are okay except energy drinks and alcohol. ? 6 hours before your procedure ? Stop eating. ? Drink only clear liquids, such as water, clear fruit juice, black coffee, plain tea, and sports drinks. ? Do not drink energy drinks or alcohol. ? 2 hours before your procedure ? Stop drinking all liquids. ? You may be allowed to take medicines with small sips of water. If you do not follow your health care provider's instructions, your procedure may be delayed or canceled. Medicines Ask your health care provider about: ? Changing or stopping your regular medicines. This is especially important if you are taking diabetes medicines or blood thinners. ? Taking medicines such as aspirin and ibuprofen. These medicines can thin your blood. Do not take these medicines unless your health care provider tells you to take them. ? Taking mfcd-erb-pegstim medicines, vitamins, herbs, and supplements. Surgery safety Ask your health care provider what steps will be taken to help prevent infection. These steps may include: ? Removing hair at the surgery site. ? Washing skin with a germ-killing soap. ? Taking antibiotic medicine. General instructions ? Do not use any products that contain nicotine or tobacco for at least 4 weeks before the procedure. These products include cigarettes, chewing tobacco, and vaping devices, such as e-cigarettes. If you need help quitting, ask your health care provider. ? If you will be going home right after the procedure, plan to have a responsible adult: ? Take you home from the hospital or clinic. You will not be allowed to drive. ? Care for you for the time you are told. What happens during the procedure? ? An IV will be inserted into one of your veins. ? You will be given one or more of the following: ? A medicine to help you relax (sedative). ? A medicine to make you fall asleep (more content not included)... [facility] 12[facility]03[facility] Note Progress Note-Jaylen braun Patient: MARIA ANTONIA BALL Age: 58 years Sex: Male : 1965 Associated Diagnoses: None Author: BARRY FELDMAN, Juno Pan X this gentleman has a rather significant bladder outlet obstructive symptoms. He has rather severe hesitancy during the day but especially at night. He will have incomplete emptying. He will have intermittency. Cystoscopy today revealed an obstructing prostate and a very friable prostate which bled. The bladder revealed very high-grade severe damage with thick deep trabeculation and deep diverticuli diffusely. Review of Systems ROS reviewed as documented in chart Health Status Allergies: Allergic Reactions (Selected) Moderate Penicillins- Vomiting. Current medications: Home Medications (7) Active aspirin 81 mg Oral EC Tab 81 mg = 1 tab(s), Oral, Daily Cipro 500 mg Tab 500 mg = 1 tab(s), Oral, Daily Crestor 20 mg Tab 20 mg = 1 tab(s), Oral, Once a day (at bedtime) doxycycline hyclate 100 mg Cap 100 mg = 1 cap(s), Oral, BID Flomax 0.4 mg Cap 0.4 mg = 1 cap(s), Oral, Daily Jardiance 25 mg oral tablet 25 mg = 1 tab(s), Oral, qAM metformin 500 mg Tab 500 mg = 1 tab(s), Oral, TID Problem list: All Problems Nocturia / SNOMED CT 833407576 / Confirmed BPH with obstruction/lower urinary tract symptoms / SNOMED CT 9945491240 / Confirmed Former smoker / SNOMED CT 20870380 / Confirmed Lumbar paraspinal muscle spasm / SNOMED CT 0324386826 / Confirmed Low back pain / SNOMED CT 200838514 / Confirmed Herniated lumbar intervertebral disc / SNOMED CT 267539527 / Confirmed Palpitations / SNOMED CT 051164093 / Confirmed Preventative health care / SNOMED CT 154246562 / Confirmed Type 2 diabetes mellitus with hyperlipidemia / SNOMED CT 177485763 / Confirmed Hyperlipidemia, mixed / SNOMED CT 294102841 / Confirmed BMI 25.0-25.9,adult / SNOMED CT 3967185695 / Confirmed Over weight / SNOMED CT 577162378 / Confirmed Leg cramps / SNOMED CT 5866681171 / Confirmed History of TIA (transient ischemic attack) / SNOMED CT 7253711543 / Confirmed Oral mucosal lesion / SNOMED CT 3971121614 / Confirmed Hyperbilirubinemia / SNOMED CT 39839179 / Confirmed Elevated PSA / SNOMED CT 1447700262 / Confirmed Histories Past Medical History: No active or resolved past medical history items have been selected or recorded. Family History: Lung cancer Father Mother Elevated cholesterol Mother Procedure history: Bilateral Medial Branch Block L3/4 L4/5 ([id number]) on 12/13/2020 at 55 Years. Comments: 01/06/2021 9:52 KATLYN Segundo RN, Shani L3/4 L4/5B 0% relief Injection of nerve root of lumbar spine using fluoroscopic guidance ([id number]) on 10/04/2020 at 55 Years. Comments: 11/04/2020 13:47 EDT - Sanya PEREZ, Shani L2/3 0% Epidural injection of lumbar spine using fluoroscopic guidance ([id number]) on 04/19/2020 at 55 Years. Comments: 05/06/2020 15:45 EST - Day RMNubia Monten[place] L1-2 0% relief Appendectomy ([id number]). Colonoscopy ([id number]). Social History Social & Psychosocial Habits Alcohol 07/05/2023 Use: Current Frequency: 1-2 times per week 07/05/2023 Risk Assessment: Low Risk Exercise 07/05/2023 Times per week: 3-4 times/week Exercise type: treadmill Substance Abuse 07/05/2023 Risk Assessment: Denies Substance Abuse Tobacco 07/05/2023 Risk Assessment: Denies Tobacco Use 09/27/2023 Tobacco Use: Former smoker, quit more Smokeless tobacco use: Never Type: Cigarettes Started at age: 16.0 Years Stopped at age: 29 Years . Objective He is in no acute distress. Afebrile vital signs are stable. Abdomen is soft and nontender. External genitalia are unremarkable. Impression and Plan Impression: #1. This gentleman has significant bladder outlet obstructive symptoms from his obstructing prostate along with with severe bladder damage. He will need to get unobstructed. 2. He has prostatitis in a chronic manner. Plan: #1. For now, he will continue Flomax. I am adding doxycycline 100 mg twice daily for 1 month. 2. He will get scheduled for urodynamics. 3. We will plan on doing a TURP within the next month or 2. [facility] Comment on above: Result Comment: Elec tronically Signed By: Juno REDDY MD.scottie\Date and Time Signed: 12/03/23 15:11 EDT 12-03-2023 Evaluation + Plan note Extrac edouard from: Title:Urology Progress Note Author:Timothy REDDY MD Date:12/03/23 Impression and Plan Impression: #1. This gentleman has significant bladder outlet obstructive symptoms from his obstructing prostate along with with severe bladder damage. He will need to get unobstructed. 2. He has prostatitis in a chronic manner. Plan: #1. For now, he will continue Flomax. I am adding doxycycline 100 mg twice daily for 1 month. 2. He will get scheduled for urodynamics. 3. We will plan on doing a TURP within the next month or 2. Future Appointments Appointment Date:12/09/2023 09:00:00 AM Scheduled Provider: Location:[facility] Appointment Type:Urology CALL PAT FT Appointment Date:12/10/2023 08:00:00 AM Scheduled Provider: Location:[facility] Appointment Type:Urology FT Appointment Date:12/30/2023 08:00:00 AM Scheduled Provider: Location:[facility] Appointment Type:URO Nurse Visit Appointment Date:01/20/2024 03:15:00 PM Scheduled Provider:Juno REDDY MD Location:[facility] Appointment Type:URO Office Visit Appointment Date:07/13/2024 02:00:00 PM Scheduled Provider:Maria Antonia FEILX MD Location:[facility] Appointment Type:FM Preventative Visit [facility] 07-22-2024 NotePatient Education Oncology Prostate Cancer Screening Prostate cancer screening is testing that is done to check for the presence of prostate cancer in men. The prostate gland is a walnut-sized gland that is located below the bladder and in front of therectum in males. The function of the prostate is to add fluid to semen during ejaculation. Prostatecancer is one of the most common types of cancer in men. Who should have prostate cancer screening? Screening recommendations vary based on age and other risk factors, as well as between the professional organizations who make the recommendations. In general, screening is recommended if: ? You are age 50 to 70 and have an average risk for prostate cancer. You should talk with your health care provider about your need for screening and how often screening should be done. Because most prostate cancers are slow growing and will not cause , screening in this age group is generallyreserved for men who have a 10- to 15-year life expectancy. ? You are younger than age 50, and you have these risk factors: ? Having a father, brother, or uncle who has been diagnosed with prostate cancer. The risk is higher if your family member's cancer occurred at an early age or if you have multiple family members with prostate cancer at an early age. ? Being a male who is Black or is of [place] or sub-Saharan descent. In general, screening is not recommended if: ? You are younger than age 40. ? You are between the ages of 40 and 49 and you have no risk factors. ? You are 70 years of age or older. At this age, the risks that screening can cause are greater than the benefits that it may provide. If you are at high risk for prostate cancer, your health care provider may recommend that you have screenings more often or that you start screening at a younger age. How is screening for prostate cancer done? The recommended prostate cancer screening test is a blood test called the prostate-specific antigen(PSA) test. PSA is a protein that is made in the prostate. As you age, your prostate naturally produces more PSA. Abnormally high PSA levels may be caused by: ? Prostate cancer. ? An enlarged prostate that is not caused by cancer (benign prostatic hyperplasia, or BPH). This condition is very common in older men. ? A prostate gland infection (prostatitis) or urinary tract infection. ? Certain medicines such as male hormones (like testosterone) or other medicines that raise testosterone levels. A rectal exam may be done as part of prostate cancer screening to help provide information about the size of your prostate gland. When a rectal exam is performed, it should be done after the PSA level is drawn to avoid any effect on the results. Depending on the PSA results, you may need more tests, such as: ? A physical exam to check the size of your prostate gland, if not done as part of screening. ? Blood and imaging tests. ? A procedure to remove tissue samples from your prostate gland for testing (biopsy). This is the only way to know for certain if you have prostate cancer. What are the benefits of prostate cancer screening? ? Screening can help to identify cancer at an early stage, before symptoms start and when the cancer can be treated more easily. ? There is a small chance that screening may lower your risk of dying from prostate cancer. The chance is small because prostate cancer is a slow-growing cancer, and most men with prostate cancer diefrom a different cause. What are the risks of prostate cancer screening? The main risk of prostate cancer screening is diagnosing and treating prostate cancer that would never have caused any symptoms or problems. This is called overdiagnosisand overtreatment. PSA screening cannot tell you if your PSA is high due to cancer or a different cause. A prostate biopsy is the only procedure to diagnose prostate cancer. Even the results of a biopsy may not tell you if your cancer needs to be treated. Slow-growing prostate cancer may not need any treatment other than monitoring, so diagnosing and treating it may cause unnecessary stress or other side effects. Questions to ask your health care provider ? When should I start prostate cancer screening? ? What is my risk for prostate cancer? ? How often do I need screening? ? What type of screening tests do I need? ? How do I get my test results? ? What do my results mean? ? Do I need treatment? Where to find more information ? The [place] [employer]: www.cancer.org ? [place] [employer]: www.auanet.org Contact a health care provider if: ? You have difficulty urinating. ? You have pain when you urinate or ejaculate. ? You have blood in your urine or semen. ? You have pain in your back or in the area of your prostate. Summary ? Prostate cancer is a common type of cancer in men. The prostate gland is located below the bladder and in front of the rectum. (more content not included)...[facility] Hospital Discharge instructions Patient Education 07/05/2023 14:58:08 Diabetes Mellitus and Exercise Diabetes Mellitus and Exercise Exercising regularly is important for overall health, especially for people who have diabetes mellitus. Exercising is not only about losing weight. It has many other health benefits, such as increasing muscle strength and bone density and reducing body fat and stress. This leads to improved fitness, flexibility, and endurance, all of which result in better overall health. What are the benefits of exercise if I have diabetes? Exercise has many benefits for people with diabetes. They include: Helping to lower and control blood sugar (glucose). Helping the body to respond better to the hormone insulin by improving insulin sensitivity. Reducing how much insulin the body needs. Lowering the risk for heart disease by: ?Lowering bad cholesterol and triglyceride levels. ?Increasing good cholesterol levels. ?Lowering blood pressure. ?Lowering blood glucose levels. What is my activity plan? Your health care provider or certified orthotic fitter can help you make a plan for the type and frequency of exercise that works for you. This is called your activity plan. Be sure to: Get at least 150 minutes of medium-intensity or high-intensity exercise each week. Exercises may include brisk walking, biking, or water aerobics. Do stretching and strengthening exercises, such as yoga or weight lifting, at least 2 times a week. Spread out your activity over at least 3 days of the week. Get some form of physical activity each day. ?Do not go more than 2 days in a row without some kind of physical activity. ?Avoid being inactive for more than 90 minutes at a time. Take frequent breaks to walk or stretch. Choose exercises or activities that you enjoy. Set realistic goals. Start slowly and gradually increase your exercise intensity over time. How do I manage my diabetes during exercise? Monitor your blood glucose Check your blood glucose before and after exercising. If your blood glucose is: ?240 mg/dL (13.3 mmol/L) or higher before you exercise, check your urine for ketones. These are chemicals created by the liver. If you have ketones in your urine, do not exercise until your blood glucose returns to normal. ?100 mg/dL (5.6 mmol/L) or lower, eat a snack containing 15 20 grams of carbohydrate. Check your blood glucose 15 minutes after the snack to make sure that your glucose level is above 100 mg/dL (5.6 mmol/L) before you start your exercise. Know the symptoms of low blood glucose (hypoglycemia) and how to treat it. Your risk for hypoglycemia increases during and after exercise. Follow these tips and your health care provider's instructions Keep a carbohydrate snack that is fast-acting for use before, during, and after exercise to help prevent or treat hypoglycemia. Avoid injecting insulin into areas of the body that are going to be exercised. For example, avoid injecting insulin into: ?Your arms, when you are about to play tennis. ?Your legs, when you are about to go jogging. Keep records of your exercise habits. Doing this can help you and your health care provider adjust your diabetes management plan as needed. Write down: ?Food that you eat before and after you exercise. ?Blood glucose levels before and after you exercise. ?The type and amount of exercise you have done. Work with your health care provider when you start a new exercise or activity. He or she may need to: ?Make sure that the activity is safe for you. ?Adjust your insulin, other medicines, and food that you eat. Drink plenty of water while you exercise. This prevents loss of water (dehydration) and problems caused by a lot of heat in the body (heat stroke). Where to find more information [place] [employer]: www.diabetes.org Summary Exercising regularly is important for overall health, especially for people who have diabetes mellitus. Exercising has many health benefits. It increases muscle strength and bone density and reduces bodyfat and stress. It also lowers and controls blood glucose. Your health care provider or certified orthotic fitter can help you make an activity plan for thetype and frequency of exercise that works for you. Work with your health care provider to make sure any new activity is safe for you. Also work with your health care provider to adjust your insulin, other medicines, and the food you eat. This information is not intended to replace advice given to you by your health care provider. Make sure you discuss any questions you have with your health care provider. Document Revised: 11/23/2019 Document Reviewed: 11/23/2019 [email or web address] Patient Education 2022 [employer]. Follow Up Care 07/23/2022 09:52:05 With:JANETH FELDMAN, Maria Antonia Tellez, [facility] Address: [facility] [address], [facility] [place] [address]- When:Within 1 Year(s) [facility] 02-10-2024 Evaluation + Plan noteExtracted from: Title:Discharge Note Author:KARL FELDMAN, Kay Bebo e:04/20/23 stable Discharged to - Home with family nursing home Discharge Diet(s): Fat Modified- 50 gram (04/20/23 09:46:00) Prescriptions Flomax 0.4 mg Cap, 0.4 mg= 1 cap(s), Oral, Daily, 11 refills Home aspirin 81 mg Oral EC Tab, 81 mg= 1 tab(s), Oral, Daily Crestor 20 mg Tab, 20 mg= 1 tab(s), Oral, Once a day (at bedtime) ibuprofen 600 mg Tab, 600 mg= 1 tab(s), Oral, q6hr, PRN Jardiance 25 mg oral tablet, 25 mg= 1 tab(s), Oral, qAM metformin 500 mg Tab, 500 mg= 1 tab(s), Oral, TID, Still taking, not as prescribed: pt states sometimes he takes only twice a day if it slips his mind. [facility] Prescription, See Instructions With When Contact Information Jorge Luis FELDMAN, KEZIA Conti Within 2 to 4 weeks [id number] [place] [address]- Additional Instructions: Transient Ischemic Attack Stroke Prevention Stroke Prevention Extracted from: Title:Consult Note-neurology Author:Virginia Hays RN ichole Date:04/20/23 ASSESSMENT: Temporary left hemisensory symptoms, lasting approximately 12 hours total. No visual symptoms as was previously stated. TIA would be the primary consideration. He has cerebrovascular risk factors of hyperlipidemia (on a statin, June 2022 LDL 100) and type 2 diabetes (medicated, June 2022 A1c 7.1%). CTA of his head and neck show unremarkable vasculature. MRI of his brain looks completely unremarkable for any acute process; of note, he was still symptomatic while receiving that imaging study. An acephalgic migraine process could be a consideration, but he has no significant history of headaches and seems an atypical candidate from migraine problem. An isolated focal sensory seizure would be a very unlikely possibility here; there could be consideration for this type of problem if this becomes a recurrent issue for him. Unrelated to reason for admission, but the CT angiography pictures of the neck show some bony central canal changes that look to give him significant central canal stenosis at C6-7. He does not have a sensory level, pathologic hyperreflexia, or other symptoms or signs of a compressive myelopathy. But he has been noticing at home what sound like positional cervical radicular symptoms. PLAN: 1. Aspirin 81 mg daily started here 2. Continue the rosuvastatin 20 mg daily that he seems to be tolerating at home 3. Outpatient neurology follow-up regarding cervical spondylosis and TIA follow- up 4. If he has recurrence of the symptoms he is to be evaluated emergently, and if the symptoms are stereotyped there would then need to be further consideration of seizure and migrainous processes. I am not instating any seizure precautions or work restrictions. 1. Brain TIA (G45.9: Transient cerebral ischemic attack, unspecified) 2. Type 2 diabetes mellitus with hyperlipidemia (E11.69: Type 2 diabetes mellitus with other specified complication) 3. Hyperlipidemia, mixed (E78.2: Mixed hyperlipidemia) 4. Herniated lumbar intervertebral disc (M51.26: Other intervertebral disc displacement, lumbar region) 5. BPH with obstruction/lower urinary tract symptoms (N40.1: Benign prostatic hyperplasia with lower urinary tract symptoms) Hyperlipidemia, unspecified (E78.5: Hyperlipidemia, unspecified) Other obstructive and reflux uropathy (N13.8: Other obstructive and reflux uropathy) Extracted from: Title:Admission H & P Author:Kay BARAJAS MD te:04/19/23 58-year-old male with past m edical history of diabetes type 2, hyperlipidemia, low back pain, herniated lumbar disc and BPH who presented to emergency room with numbness tingling of left side. Symptoms started with left hand numbness tingling. Then he started to complain of seeing dots in his left eye. Which resolved. Then he started to complain of numbness tingling of left leg and left cheek. He denies having slurred speech. No facial droops. Patient was placed. No seizure activities. No urinary incontinence or stool incontinence Denies any chest pain or shortness of breath. He denies having cough. He denies having fever. No nausea vomiting. He denies having diarrhea or constipation. No dysuria, hematuria, frequency. Assessment and plan 1. Brain TIA (G45.9: Transient cerebral ischemic attack, unspecified) 23 hours observation Cardiac telemetry Neuro check Every [address] brain : NO ACUTE INTRACRANIAL PROCESS IDENTIFIED. CTA head CTA neck MRI Brain Echocardiogram PT/OT ASA daily Resume Crestor daily 2. Type 2 diabetes mellitus with hyperlipidemia (E11.69: Type 2 diabetes mellitus with other specified complication) Accu-Chek ACHS Insulin sliding scale Resume Jardiance Resume home 3. Hyperlipidemia, mixed (E78.2: Mixed hyperlipidemia) Resume Crestor 4. Herniated lumbar intervertebral disc (M51.26: Other intervertebral disc displacement, lumbar region) PT/OT 5. BPH with obstruction/lower urinary tract symptoms (N40.1: Benign prostatic hyperplasia with lower urinary tract symptoms) Resume Flomax DVT.P: Lovenox sc daily Orders: acetaminophen, 650 mg = 2 tab(s), Tab, Oral, q6hr PRN Pain, Routine, Start date 04/19/23 11:15:00 EST, 04/19/23 11:15:00 EST aspirin, 81 mg = 1 tab(s), Tab-EC, Oral, Daily, Routine, Start date 04/20/23 9:00:00 EST, 04/19/23 11:15:00 EST enoxaparin, 40 mg = 0.4 mL, Injection, SubCutaneous, Daily for 30 day(s), Stop date 05/20/23 8:59:00 EDT, Routine, Start date 04/20/23 9:00:00 EST, 04/19/23 11:15:00 EST glucose, 50 mL, Soln-IV, IV Push, Once PRN Blood glucose, STAT, Start date 04/19/23 11:28:00 EST insulin lispro, 0-10 Unit(s), Injection-Insulin, SubCutaneous, QIDACHS, Routine, Start date 04/19/23 11:30:00 EST magnesium hydroxide, 30 mL, Susp-Oral, Oral, q6hr PRN Constipation, STAT, Start date 04/19/23 11:15:00 EST zolpidem, 5 mg = 1 tab(s), Tab, Oral, Bedtime PRN Sleep, Routine, Start date 04/19/23 11:15:00 EST Cardiac Monitoring Consult to Neurology Diabetic/Calorie Control Diet Echo Transthoracic Complete Elevate Head of Bed Hypoglycemia Protocol Responsive Patient Hypoglycemia Protocol Unresponsive Patient MRI Brain w/o Contrast Notify Provider Vital Signs Notify Provider Vital Signs Occupational Therapy Evaluate Patient, Develop a Plan of Care and Implement Plan Physical Therapy Evaluate Patient, Develop a Plan of Care and Implement Plan Place in Status Resuscitation Status - Full Routine Capillary Glucose POC Saline Lock Convert From IV Up ad Juanita Vital Signs Weight Extracted from: Title:ED Note Author:Axel Andrade PA-C te:04/19/23 1. Left sided numbness (R20. 0: Anesthesia of skin) Orders: Basic Metabolic Panel CBC w/ Auto Diff [place] Stroke Scale Communication Order Physician to Nursing Continuous Pulse Oximetry CT Head or Brain w/o Contrast CVA/TIA Inclusion/Exclusion Criteria ED Cardiac Monitoring eGFR NIH Stroke Scale Oxygen Therapy PT & PTT Routine Capillary Glucose POC Saline Lock Insert Stroke Quality Measures Troponin 0 Hr. Vital Signs XR Chest Single View Future Appointments Appointment Date:07/05/2023 02:20:00 PM Scheduled Provider:Maria Antonia FELIX MD Location:[facility] Appointment Type: Preventative Visit Future Scheduled Tests Laboratory* HgbA1c 03/05/23 * PSA Screen, Total 12/26/23 * Microalbumin/Creatinine Ratio 03/05/23 * CBC w/ Auto Diff 03/05/23 * Comprehensive Metabolic Panel 03/05/23 * Lipid Panel 03/05/23 [facility]02-10-2024 Hospital Discharge instructions Patient Education 04/20/2023 09:45:50 Transient Ischemic Attack Transient Ischemic Attack A transient ischemic attack (TIA) causes stroke-like symptoms that go away quickly. Having a TIA means that a person is at higher risk for a stroke. A TIA happens when blood supply to the brain is blocked temporarily. A TIA is a medical emergency. What are the causes? This condition is caused by a temporary blockage in an artery in the head or neck. This means the brain does not get the blood supply it needs. There is no permanent brain damage with a TIA. A blockage can be caused by: Fatty buildup in an artery in the head or neck (atherosclerosis). A blood clot. An artery tear (dissection). Inflammation of an artery (vasculitis). Sometimes the cause is not known. What increases the risk? Certain factors may make you more likely to develop this condition. Some of these are things that you can change, such as: Obesity. Using products that contain nicotine or tobacco. Taking oral control, especially if you also use tobacco. Not being active. Heavy alcohol use. Drug use, especially cocaine and methamphetamine. Medical conditions that may increase your risk include: High blood pressure (hypertension). High cholesterol. Diabetes. Heart disease (coronary artery disease). An irregular heartbeat, also called atrial fibrillation (AFib). Sickle cell disease. Sleep problems (sleep apnea). Chronic inflammatory diseases, such as rheumatoid arthritis or lupus. Blood clotting disorders (hypercoagulable state). Other risk factors include: Being over the age of 60. Being male. Family history of stroke. Previous history of blood clots, stroke, TIA, or heart attack. Having a history of preeclampsia. Migraine headache. What are the signs or symptoms? Symptoms of a TIA are the same as those of a stroke. The symptoms develop suddenly, and then go away quickly. They may include: Weakness or numbness in your face, arm, or leg, especially on one side of your body. Trouble walking or moving your arms or legs. Trouble speaking, understanding speech, or both (aphasia). Vision changes, such as double vision, blurred vision, or loss of vision. Dizziness. Confusion. Loss of balance or coordination. Nausea and vomiting. Severe headache. If possible, note what time your symptoms started. Tell your health care provider. How is this diagnosed? This condition may be diagnosed based on: Your symptoms and medical history. A physical exam. Imaging tests, usually a CT scan or MRI of the brain. Blood tests. You may also have other tests, including: Electrocardiogram (ECG). Echocardiogram. Carotid ultrasound. A scan of blood circulation in the brain (CT angiogram or MR angiogram). Continuous heart monitoring. How is this treated? The goal of treatment is to reduce the risk for a stroke. Stroke prevention therapies may include: Changes to diet and lifestyle, such as being physically active and stopping smoking. Medicines to thin the blood (antiplatelets or anticoagulants). Blood pressure medicines. Medicines to reduce cholesterol. Treating other health conditions, such as diabetes or AFib. If testing shows a narrowing in the arteries to your brain, your health care provider may recommenda procedure, such as: Carotid endarterectomy. This is done to remove the blockage from your artery. Carotid angioplasty and stenting. This uses a tube (stent) to open or widen an artery in the neck. The stent helps keep the artery open by supporting the artery smith. Follow these instructions at home: Medicines Take [id number] and prescription medicines only as told by your health care provider. If you were told to take a medicine to thin your blood, such as aspirin or an anticoagulant, take it exactly as told by your health care provider. ?Taking too much blood-thinning medicine can cause bleeding. Taking too little will not protect youagainst a stroke and other problems. Eating and drinking Eat 5 or more servings of fruits and vegetables each day. Follow guidelines from your health care provider about your diet. You may need to follow a certain diet to help manage risk factors for stroke. This may include: ?Eating a low-fat, low-salt diet. ?Choosing high-fiber foods. ?Limiting carbohydrates and sugar. If you drink alcohol: ?Limit how much you have to: ?0 1 drink a day for women who are not . ?0 2 drinks a day for men. ?Know how much alcohol is in a drink. In the [place] one drink equals one 12 oz bottle of beer (355mL), one 5 oz glass of wine (148mL), or one 1 oz glass of hard liquor (44mL). General instructions Maintain a healthy weight. Try to get at least 30 minutes of exercise on most days. Get treatment if you have sleep apnea. Do not use any products that contain nicotine or tobacco. These products include cigarettes, chewing tobacco, and vaping devices, such as e-cigarettes. If you need help quitting, ask your health careprovider. Do not use drugs. Keep all follow-up visits. This is important. Where to find more information [place] [employer] Association: www.stroke.org Get help right away if: You have chest pain or an irregular heartbeat. You have any symptoms of a stroke. BE FAST is an easy way to remember the main warning signs of astroke. ?B - Balance. Signs are dizziness, sudden trouble walking, or loss of balance. ?E - Eyes. Signs are trouble seeing or a sudden change in vision. ?F - Face. Signs are sudden weakness or numbness of the face, or the face or eyelid drooping on oneside. ?A - Arms. Signs are weakness or numbness in an arm. This happens suddenly and usually on one side of the body. ?S - Speech. Signs are sudden trouble speaking, slurred speech, or trouble understanding what people say. ?T - Time. Time to call emergency services. Write down what time symptoms started. You have other signs of a stroke, such as: ?A sudden, severe headache with no known cause. ?Nausea or vomiting. ?Seizure. These symptoms may represent a serious problem that is an emergency. Do not wait to see if the symptoms will go away. Get medical help right away. Call your local emergency services (911 in the [place] Do not drive yourself to the hospital. Summary A transient ischemic attack (TIA) happens when an artery in the head or neck is blocked. The blockage clears before there is any permanent brain damage. A TIA is a medical emergency. Symptoms of a TIA are the same as those of a stroke. The symptoms develop suddenly, and then go away quickly. Having a TIA means that you are at higher risk for a stroke. The goal of treatment is to reduce your risk for a stroke. Treatment may include medicines to thin the blood and changes to diet and lifestyle. This information is not intended to replace advice given to you by your health care provider. Make sure you discuss any questions you have with your health care provider. Document Revised: 06/27/2022 Document Reviewed: 09/20/2020 [email or web address] Patient Education 2022 [employer]. 04/20/2023 09:45:46 Stroke Prevention Stroke Prevention Some medical conditions and behaviors can lead to a higher chance of having a stroke. You can help prevent a stroke by eating healthy, exercising, not smoking, and managing any medical conditions youhave. Stroke is a leading cause of functional impairment. Primary prevention is particularly important because a majority of strokes are first-time events. Stroke changes the lives of not only those who experience a stroke but also their family and other caregivers. How can this condition affect me? A stroke is a medical emergency and should be treated right away. A stroke can lead to brain damageand can sometimes be life-threatening. If a person gets medical treatment right away, there is a better chance of surviving and recovering from a stroke. What can increase my risk? The following medical conditions may increase your risk of a stroke: Cardiovascular disease. High blood pressure (hypertension). Diabetes. High cholesterol. Sickle cell disease. Blood clotting disorders (hypercoagulable state). Obesity. Sleep disorders (obstructive sleep apnea). Other risk factors include: Being older than age 60. Having a history of blood clots, stroke, or mini-stroke (transient ischemic attack, TIA). Genetic factors, such as race, ethnicity, or a family history of stroke. Smoking cigarettes or using other tobacco products. Taking control pills, especially if you also use tobacco. Heavy use of alcohol or drugs, especially cocaine and methamphetamine. Physical inactivity. What actions can I take to prevent this? Manage your health conditions High cholesterol levels. ?Eating a healthy diet is important for preventing high cholesterol. If cholesterol cannot be managed through diet alone, you may need to take medicines. ?Take any prescribed medicines to control your cholesterol as told by your health care provider. Hypertension. ?To reduce your risk of stroke, try to keep your blood pressure below 130/80. ?Eating a healthy diet and exercising regularly are important for controlling blood pressure. If these steps are not enough to manage your blood pressure, you may need to take medicines. ?Take any prescribed medicines to control hypertension as told by your health care provider. ?Ask your health care provider if you should monitor your blood pressure at home. ?Have your blood pressure checked every year, even if your blood pressure is normal. Blood pressureincreases with age and some medical conditions. Diabetes. ?Eating a healthy diet and exercising regularly are important parts of managing your blood sugar (glucose). If your blood sugar cannot be managed through diet and exercise, you may need to take medicines. ?Take any prescribed medicines to control your diabetes as told by your health care provider. Get evaluated for obstructive sleep apnea. Talk to your health care provider about getting a sleep evaluation if you snore a lot or have excessive sleepiness. Make sure that any other medical conditions you have, such as atrial fibrillation or atherosclerosis, are managed. Nutrition Follow instructions from your health care provider about what to eat or drink to help manage your health condition. These instructions may include: Reducing your daily calorie intake. Limiting how much salt (sodium) you use to 1,500 milligrams (mg) each day. Using only healthy fats for cooking, such as olive oil, canola oil, or sunflower oil. Eating healthy foods. You can do this by: ?Choosing foods that are high in fiber, such as whole grains, and fresh fruits and vegetables. ?Eating at least 5 servings of fruits and vegetables a day. Try to fill one-half of your plate withfruits and vegetables at each meal. ?Choosing lean protein foods, such as lean cuts of meat, poultry without skin, fish, tofu, beans, and nuts. ?Eating low-fat dairy products. Avoiding foods that are high in sodium. This can help lower blood pressure. Avoiding foods that have saturated fat, trans fat, and cholesterol. This can help prevent high cholesterol. Avoiding processed and prepared foods. Counting your daily carbohydrate intake. Lifestyle If you drink alcohol: ?Limit how much you have to: ?0 1 drink a day for women who are not . ?0 2 drinks a day for men. ?Know how much alcohol is in your drink. In the [place] one drink equals one 12 oz bottle of beer (355mL), one 5 oz glass of wine (148mL), or one 1 oz glass of hard liquor (44mL). Do not use any products that contain nicotine or tobacco. These products include cigarettes, chewing tobacco, and vaping devices, such as e-cigarettes. If you need help quitting, ask your health careprovider. Avoid secondhand smoke. Do not use drugs. Activity Try to stay at a healthy weight. Get at least 30 minutes of exercise on most days, such as: ?Fast walking. ?Biking. ?Swimming. Medicines Take nxdt-hqc-zbawtff and prescription medicines only as told by your health care provider. Aspirinor blood thinners (antiplatelets or anticoagulants) may be recommended to reduce your risk of forming blood clots that can lead to stroke. Avoid taking control pills. Talk to your health care provider about the risks of taking birthcontrol pills if: ?You are over 35 years old. ?You smoke. ?You get very bad headaches. ?You have had a blood clot. Where to find more information [place] [employer] Association: www.strokeassociation.org Get help right away if: You or a loved one has any symptoms of a stroke. BE FAST is an easy way to remember the main warning signs of a stroke: ?B - Balance. Signs are dizziness, sudden trouble walking, or loss of balance. ?E - Eyes. Signs are trouble seeing or a sudden change in vision. ?F - Face. Signs are sudden weakness or numbness of the face, or the face or eyelid drooping on oneside. ?A - Arms. Signs are weakness or numbness in an arm. This happens suddenly and usually on one side of the body. ?S - Speech. Signs are sudden trouble speaking, slurred speech, or trouble understanding what people say. ?T - Time. Time to call emergency services. Write down what time symptoms started. You or a loved one has other signs of a stroke, such as: ?A sudden, severe headache with no known cause. ?Nausea or vomiting. ?Seizure. These symptoms may represent a serious problem that is an emergency. Do not wait to see if the symptoms will go away. Get medical help right away. Call your local emergency services (911 in the [place] Do not drive yourself to the hospital. Summary You can help to prevent a stroke by eating healthy, exercising, not smoking, limiting alcohol intake, and managing any medical conditions you may have. Do not use any products that contain nicotine or tobacco. These include cigarettes, chewing tobacco, and vaping devices, such as e-cigarettes. If you need help quitting, ask your health care provider. Remember BE FAST for warning signs of a stroke. Get help right away if you or a loved one has anyof these signs. This information is not intended to replace advice given to you by your health care provider. Make sure you discuss any questions you have with your health care provider. Document Revised: 09/26/2020 Document Reviewed: 09/26/2020 [email or web address] Patient Education 2022 [employer]. 04/20/2023 09:45:43 Stroke Prevention Stroke Prevention Some medical conditions and behaviors can lead to a higher chance of having a stroke. You can help prevent a stroke by eating healthy, exercising, not smoking, and managing any medical conditions youhave. Stroke is a leading cause of functional impairment. Primary prevention is particularly important because a majority of strokes are first-time events. Stroke changes the lives of not only those who experience a stroke but also their family and other caregivers. How can this condition affect me? A stroke is a medical emergency and should be treated right away. A stroke can lead to brain damageand can sometimes be life-threatening. If a person gets medical treatment right away, there is a better chance of surviving and recovering from a stroke. What can increase my risk? The following medical conditions may increase your risk of a stroke: Cardiovascular disease. High blood pressure (hypertension). Diabetes. High cholesterol. Sickle cell disease. Blood clotting disorders (hypercoagulable state). Obesity. Sleep disorders (obstructive sleep apnea). Other risk factors include: Being older than age 60. Having a history of blood clots, stroke, or mini-stroke (transient ischemic attack, TIA). Genetic factors, such as race, ethnicity, or a family history of stroke. Smoking cigarettes or using other tobacco products. Taking control pills, especially if you also use tobacco. Heavy use of alcohol or drugs, especially cocaine and methamphetamine. Physical inactivity. What actions can I take to prevent this? Manage your health conditions High cholesterol levels. ?Eating a healthy diet is important for preventing high cholesterol. If cholesterol cannot be managed through diet alone, you may need to take medicines. ?Take any prescribed medicines to control your cholesterol as told by your health care provider. Hypertension. ?To reduce your risk of stroke, try to keep your blood pressure below 130/80. ?Eating a healthy diet and exercising regularly are important for controlling blood pressure. If these steps are not enough to manage your blood pressure, you may need to take medicines. ?Take any prescribed medicines to control hypertension as told by your health care provider. ?Ask your health care provider if you should monitor your blood pressure at home. ?Have your blood pressure checked every year, even if your blood pressure is normal. Blood pressureincreases with age and some medical conditions. Diabetes. ?Eating a healthy diet and exercising regularly are important parts of managing your blood sugar (glucose). If your blood sugar cannot be managed through diet and exercise, you may need to take medicines. ?Take any prescribed medicines to control your diabetes as told by your health care provider. Get evaluated for obstructive sleep apnea. Talk to your health care provider about getting a sleep evaluation if you snore a lot or have excessive sleepiness. Make sure that any other medical conditions you have, such as atrial fibrillation or atherosclerosis, are managed. Nutrition Follow instructions from your health care provider about what to eat or drink to help manage your health condition. These instructions may include: Reducing your daily calorie intake. Limiting how much salt (sodium) you use to 1,500 milligrams (mg) each day. Using only healthy fats for cooking, such as olive oil, canola oil, or sunflower oil. Eating healthy foods. You can do this by: ?Choosing foods that are high in fiber, such as whole grains, and fresh fruits and vegetables. ?Eating at least 5 servings of fruits and vegetables a day. Try to fill one-half of your plate withfruits and vegetables at each meal. ?Choosing lean protein foods, such as lean cuts of meat, poultry without skin, fish, tofu, beans, and nuts. ?Eating low-fat dairy products. Avoiding foods that are high in sodium. This can help lower blood pressure. Avoiding foods that have saturated fat, trans fat, and cholesterol. This can help prevent high cholesterol. Avoiding processed and prepared foods. Counting your daily carbohydrate intake. Lifestyle If you drink alcohol: ?Limit how much you have to: ?0 1 drink a day for women who are not . ?0 2 drinks a day for men. ?Know how much alcohol is in your drink. In the [place] one drink equals one 12 oz bottle of beer (355mL), one 5 oz glass of wine (148mL), or one 1 oz glass of hard liquor (44mL). Do not use any products that contain nicotine or tobacco. These products include cigarettes, chewing tobacco, and vaping devices, such as e-cigarettes. If you need help quitting, ask your health careprovider. Avoid secondhand smoke. Do not use drugs. Activity Try to stay at a healthy weight. Get at least 30 minutes of exercise on most days, such as: ?Fast walking. ?Biking. ?Swimming. Medicines Take wzyp-jlx-lrvlted and prescription medicines only as told by your health care provider. Aspirinor blood thinners (antiplatelets or anticoagulants) may be recommended to reduce your risk of forming blood clots that can lead to stroke. Avoid taking control pills. Talk to your health care provider about the risks of taking birthcontrol pills if: ?You are over 35 years old. ?You smoke. ?You get very bad headaches. ?You have had a blood clot. Where to find more information [place] [employer] Association: www.strokeassociation.org Get help right away if: You or a loved one has any symptoms of a stroke. BE FAST is an easy way to remember the main warning signs of a stroke: ?B - Balance. Signs are dizziness, sudden trouble walking, or loss of balance. ?E - Eyes. Signs are trouble seeing or a sudden change in vision. ?F - Face. Signs are sudden weakness or numbness of the face, or the face or eyelid drooping on oneside. ?A - Arms. Signs are weakness or numbness in an arm. This happens suddenly and usually on one side of the body. ?S - Speech. Signs are sudden trouble speaking, slurred speech, or trouble understanding what people say. ?T - Time. Time to call emergency services. Write down what time symptoms started. You or a loved one has other signs of a stroke, such as: ?A sudden, severe headache with no known cause. ?Nausea or vomiting. ?Seizure. These symptoms may represent a serious problem that is an emergency. Do not wait to see if the symptoms will go away. Get medical help right away. Call your local emergency services (911 in the [place] Do not drive yourself to the hospital. Summary You can help to prevent a stroke by eating healthy, exercising, not smoking, limiting alcohol intake, and managing any medical conditions you may have. Do not use any products that contain nicotine or tobacco. These include cigarettes, chewing tobacco, and vaping devices, such as e-cigarettes. If you need help quitting, ask your health care provider. Remember BE FAST for warning signs of a stroke. Get help right away if you or a loved one has anyof these signs. This information is not intended to replace advice given to you by your health care provider. Make sure you discuss any questions you have with your health care provider. Document Revised: 09/26/2020 Document Reviewed: 09/26/2020 [email or web address] Patient Education 2022 [employer]. Follow Up Care 04/19/2023 09:10:24 With:Jorge Luis FELDMAN, KEZIA Conti Address: [place] [id number] [address] [id number]- When:2 to 4 weeks [facility]02-10-2024 NotePT Evaluation orders received and completed. Recommend no further PT while pt in acute care as pt was independent with all mobility and at baseline mobility levels. Pt scored a 24/24 on the AMPAC. Bilat LE strength WFL and nearly symmetrical. Additionally, no PT needed at discharge when pt in medically stable.[facility]02[facility]10[facility] NoteCRM entered the room to discuss dc planning. PCP, DME and insurance discussed. Patient is alert andinvolved in plan of care. Contact information provided and whiteboard updated. Pt's family will transport. PT has no recs. Pt will dc toady. CRM to follow.[facility] HospitalComment on above:Result Comment: Electronically Signed By: Cecilia Cruz.[email or web address]\Date and Time Signed: 04/20/23 11:29 [id number] NoteAdmission and Discharge Information Admitting Physician - KARL FELDMAN, Kay Consulting Physician - Jorge Luis FELDMAN, Gallito Bowers MD, Jonatan Burroughs Admitting Diagnoses: Discharge Diagnoses 1. Brain TIA, 04/19/2023 2. Type 2 diabetes mellitus with hyperlipidemia, 04/19/2023 3. Hyperlipidemia, mixed, 04/19/2023 4. Herniated lumbar intervertebral disc, 04/19/2023 5. BPH with obstruction/lower urinary tract symptoms, 04/19/2023 Hyperlipidemia, unspecified, 04/19/2023 Other obstructive and reflux uropathy, 04/19/2023 Paresthesia, 04/19/2023 Weakness or fatigue, 04/19/2023 Procedure History Injection of facet joint using fluoroscopic guidance (12/13/2020), Injection of nerve root of lumbar spine using fluoroscopic guidance (10/04/2020), Epidural injection of lumbar spine using fluoroscopic guidance (04/19/2020), Appendectomy, Colonoscopy. Hospital Course 58-year-old male with past medical history of diabetes type 2, hyperlipidemia, low back pain, herniated lumbar disc and BPH who presented to emergency room with numbness tingling of left side. Symptoms started with left hand numbness tingling. Then he started to complain of seeing dots in his left eye. Which resolved. Then he started to complain of numbness tingling of left leg and left cheek. Hedenies having slurred speech. No facial droops. Patient was placed. No seizure activities. No urinary incontinence or stool incontinence. Patient admitted to the hospital for observation with cardiac telemetry. He was given aspirin and Crestor. Neurology was consulted. MRI was unremarkable. CTA neck and head were unremarkable. Echocardiogram was unremarkable. Patient discharged home in stable condition. Recommendation to continue aspirin and Crestor. Follow-up with neurology as outpatient. Services Consulted Consult to Neurology - Ordered -- 04/19/23 11:30:00 EST, TIA, Consult and Co-manage Physical Exam Vitals & Measurements T: 36.8 ?C(Oral) TMIN: 36.5 ?C(Oral) TMAX: 36.9 ?C(Oral) HR: 91(Monitored) RR: 18 BP: 119/73 SpO2: 97% HT: 177.80 cm WT: 85.2 kg General: alert, no acute distress Skin: warm, dry Head: no trauma, normocephalic Neck: Trachea midline, no adenopathy, no tenderness Eye: normal conjunctiva, sclera clear ENMT: TM's clear, oral mucosa moist, no pharyngeal erythema or exudate Cardiovascular: regular rate and rhythm, normal peripheral perfusion Respiratory: Lungs CTA, respirations non labored Chest wall: no deformity. Gastrointestinal: soft, non distended, no tenderness, no guarding. Back: No tenderness, Normal ROM, Normal alignment. Extremities: no deformity, no trauma Neurological: oriented x 4, LOC appropriate for age, CN II-XII intact, motor strength equal & normal bilaterally, sensation equal & normal bilaterally, speech normal Psychiatric: cooperative, affect appropriate for age, normal judgement, normal psychiatric thoughts. Tests Performed HgbA1c -- Results Pending -- Lipid Panel -- Results Pending -- CT Head or Brain w/o Contrast CTA Head CTA Neck Echo w/ Saline Bubbles MRI Brain w/o Contrast XR Chest Single View Please visit your patient portal for your results or contact your primary care physician. (04/19/2023 14:41 EST Echo w/ Saline Bubbles) * Final Report * Reason For Exam CVA Report Version: 1 Study ID: [id number] [facility] [address] [place] [address] Adult Echocardiogram Report Name: MARIA ANTONIA BALL Study Date: 04/19/2023, 1: 59 PM Patient Location: [id number] [facility] [place] : 1965 (MM/DD/YYYY) Gender: Male Age: 58 Years Height: 177 cm BP: 120 / 75 mmHg Weight: 84 kg HR: 71 bpm BSA: 2.01 m?? Ordering Physician: Kay BARAJAS Performed By: Clementina Stein GHULAM Reason For Study: CVA History: Palpitations, DM Interpretation Summary Ejection Fraction = 60-65%. Normal LV and RV. No significant valve disease. Normal estimated PA pressure. Normal diastolic filling pattern. Negative bubble study for shunt. Procedure A complete two-dimensional transthoracic echocardiogram was performed (2D, M- mode, spectral and color flow Doppler). Agitated saline bubble study was performed. Study quality is good. Left Ventricle The left ventricle is normal in size. There is normal left ventricular wall thickness. Ejection Fraction = 60-65%. The left ventricular wall motion is normal. Normal diastolic function. Left Atrium The left atrial size is normal. Right Atrium Right atrial size is normal. Right Ventricle The right ventricular systolic function is normal. The right ventricle is normal size. The right ventricular wall motion is normal. Aortic Valve The aortic valve is trileaflet. No aortic regurgitation. There is no aortic stenosis. Mitral Valve The mitral valve is normal in structure and function. There is no mitral regurgitation noted. No mitral valve stenosis. Tricuspid Valve Structurally normal tricuspid valve. No e (more content not included)...[facility] HospitalComment on above:Result Comment: Electronically Signed By: ALAHMKay LANE MD\.br\Date and Time Signed: 04/20/23 09:[id number] Note Echocardiology Procedure Exam Date/Time Accession # Ordering Dr. Navarro w/ Saline Bubbles 04/19/2023 14:41 EST [id number] Kay BARAJAS MD CPT code [id number] Reason for Exam (Echo w/ Saline Bubbles) CVA Report Version: 1 Study ID: [id number] [address] Adult Echocardiogram Report Name: MARIA ANTONIA BALL Study Date: 04/19/2023, 1: 59 PM Patient Location: [address] [place] [address] : 1965 (MM/DD/YYYY) Gender: Male Age: 58 Years Height: 177 cm BP: 120 / 75 mmHg Weight: 84 kg HR: 71 bpm BSA: 2.01 m? Ordering Physician: Kay BARAJAS Performed By: Clementina Stein GHULAM Reason For Study: CVA History: Palpitations, DM Interpretation Summary Ejection Fraction = 60-65%. Normal LV and RV. No significant valve disease. Normal estimated PA pressure. Normal diastolic filling pattern. Negative bubble study for shunt. Procedure A complete two-dimensional transthoracic echocardiogram was performed (2D, M- mode, spectral and color flow Doppler). Agitated saline bubble study was performed. Study quality is good. Left Ventricle The left ventricle is normal in size. There is normal left ventricular wall thickness. Ejection Fraction = 60-65%. The left ventricular wall motion is normal. Normal diastolic function. Left Atrium The left atrial size is normal. Right Atrium Echocardiology Report Right atrial size is normal. Right Ventricle The right ventricular systolic function is normal. The right ventricle is normal size. The right ventricular wall motion is normal. Aortic Valve The aortic valve is trileaflet. No aortic regurgitation. There is no aortic stenosis. Mitral Valve The mitral valve is normal in structure and function. There is no mitral regurgitation noted. No mitral valve stenosis. Tricuspid Valve Structurally normal tricuspid valve. No evidence of tricuspid regurgitation. Right ventricular systolic pressure is normal. Pulmonic Valve No evidence of stenosis. There is no pulmonic valve regurgitation. Arteries The aortic root is normal in size. Normal ascending aorta. Pulmonary artery diameter is normal. Venous The inferior vena cava is normal in size, and collapses normally with respiration. Effusion There is no pericardial effusion. Left Ventricle IVSd: 1.01 cm LVIDd: 4.0 cm LVPWd: 1.26 cm LVIDs: 1.70 cm EDV(MOD-sp4): 75.3 ml LVLd ap4: 8.2 cm ESV(MOD-sp4): 23.3 ml LVLs ap4: 7.2 cm EDV(MOD-sp2): 88.6 ml LVLd ap2: 8.6 cm ESV(MOD-sp2): 25.1 ml LVLs ap2: 6.4 cm Right Ventricle TAPSE: 2.48 cm Aortic Valve LVOT diam: 2.13 cm LV V1 max: 92.4 cm/sec LV V1 max P.4 mmHg Ao max P.7 mmHg Ao V2 max: 119.0 cm/sec Aorta Ao root diam: 2.6 cm Ao Sinus of Valsalva: 3.1 cm Ao Sinotubular Junction: 2.8 cm asc Aorta Diam: 3.2 cm Atria LA dimension: 3.4 cm Diastolic funtion Med Peak E' Santiago: 11.3 cm/sec Lat Peak E' Santiago: 13.0 cm/sec MV dec time: 0.19 sec MV E max santiago: 79.1 cm/sec MV A max santiago: 56.8 cm/sec Ao max P.7 mmHg Ao root area: 5.3 cm? Ao root diam: 2.6 cm Ao Sinus of Valsalva: 3.1 cm Echocardiology Report Ao Sinotubular Junction: 2.8 cm Ao V2 max: 119.0 cm/sec AV VR: 0.78 ALEXANDER(V,D): 2.8 cm? EDV(MOD-sp4): 75.3 ml EDV(Teich): 71.6 ml EF(MOD-sp4): 69.1 % EF(Teich): 88.3 % ESV(MOD-sp4): 23.3 ml ESV(Teich): 8.4 ml FS: 57.9 % IVC Diam: 1.11 cm IVSd: 1.01 cm LA dimension: 3.4 cm LV V1 max: 92.4 cm/sec LV V1 max P.4 mmHg LVIDd: 4.0 cm LVIDs: 1.70 cm LVLd ap4: 8.2 cm LVLs ap4: 7.2 cm LVOT area: 3.6 cm? LVOT diam: 2.13 cm LVPWd: 1.26 cm MV A max santiago: 56.8 cm/sec MV dec time: 0.19 sec MV E max santiago: 79.1 cm/sec MV E/A: 1.39 RAP systole: 3.0 mmHg RVDd: 3.2 cm RVIDd/LVIDd: 0.80 SV(MOD-sp4): 52.0 ml TAPSE: 2.48 cm asc Aorta Diam: 3.2 cm E/E' Lat: 6.1 E/E' Med: 7.0 EDV(MOD-sp2): 88.6 ml EF (MOD-bp): 69.7 % EF(MOD-sp2): 71.7 % ESV(MOD-sp2): 25.1 ml LA Vol Index: 16.6 ml/m? Lat Peak E' Santiago: 13.0 cm/sec LVLd ap2: 8.6 cm LVLs ap2: 6.4 cm Med Peak E' Santiago: 11.3 cm/sec Electronically signed by: Jonatan Bowers MD 04/19/2023, 7: 38 PM FINAL REPORT Dictated: 04/19/2023 1:59 pm Jonatan Bowers MD Signed (Electronic Signature): 04/19/2023 7:38 pm Signed by: Jonatan Bowers MD Transcribed by: [facility] Technologist: [facility]02-09-2024 Note Chief Complaint Pt reports [id number]. Started with unilateral weakness and numbness on left side. Denies unsteady gait, vision, or speech changes, but reports he had what seemed like a dot in his left eye at the time, which has since resolved. hx of diabetes. History of Present Illness 58-year-old male with past medical history of diabetes type 2, hyperlipidemia, low back pain, herniated lumbar disc and BPH who presented to emergency room with numbness tingling of left side. Symptoms started with left hand numbness tingling. Then he started to complain of seeing dots in his left eye. Which resolved. Then he started to complain of numbness tingling of left leg and left cheek. Hedenies having slurred speech. No facial droops. Patient was placed. No seizure activities. No urinary incontinence or stool incontinence Denies any chest pain or shortness of breath. He denies having cough. He denies having fever. No nausea vomiting. He denies having diarrhea or constipation. No dysuria, hematuria, frequency. Review of Systems Constitutional: no fever, no chills, no sweats, no weakness Skin: no Jaundice, no rash, no lesions, nopetechiae ENMT: no ear pain, no sore throat, no congestion, no hoarseness Respiratory: no shortness of breath, no cough, no orthopnea, no wheezing Cardiovascular: no chest pain, no palpitations, no edema Gastrointestinal: no nausea, no vomiting, no diarrhea, no GI bleeding Genitourinary: no dysuria, no hematuria, no discharge, no pain Musculoskeletal: no back pain, no trauma Neurologic: no headache, no dizziness, no numbness, no weakness Psychiatric: no sleeping problems, no irritability, no mood swings/depression. Heme/Lymph: no bleeding tendency, no bruising tendency, no petechiae, no swollen nodes Allergy/Immunologic: no seasonal allergies, no food allergies, no recurrent infections, no impairedimmunity Additional ROS info: Except as noted in the above Review of Systems and in the History of Present Illness all other systems have been reviewed and are negative or noncontributory. Scoring Vargas Fall Risk Score: 35 (04/19/23) Physical Exam Vitals & Measurements T: 36.5 ?C(Oral) HR: 69(Monitored) RR: 16 BP: 124/77 SpO2: 96% HT: 177 cm WT: 84.0 kg General: alert, no acute distress Skin: warm, dry Head: no trauma, normocephalic Neck: Trachea midline, no adenopathy, no tenderness Eye: normal conjunctiva, sclera clear ENMT: TM's clear, oral mucosa moist, no pharyngeal erythema or exudate Cardiovascular: regular rate and rhythm, normal peripheral perfusion Respiratory: Lungs CTA, respirations non labored Chest wall: no deformity. Gastrointestinal: soft, non distended, no tenderness, no guarding. Back: No tenderness, Normal ROM, Normal alignment. Extremities: no deformity, no trauma Neurological: oriented x 4, LOC appropriate for age, CN II-XII intact, motor strength equal & normal bilaterally, sensation equal & normal bilaterally, speech normal Psychiatric: cooperative, affect appropriate for age, normal judgement, normal psychiatric thoughts. Lab Results WBC: 6.7 E9/L (04/19/23 09:21:00) RBC: 4.8 E12/L (04/19/23 09:21:00) HGB: 15.6 gm/dL (04/19/23:21:00) Hct: 44 % (04/19/23:21:00) MCV: 92.8 fL (04/19/23:21:00) MCH: 32.6 pg (04/19/23:21:00) MCHC: 35.1 gm/dL (04/19/23:21:00) RDW: 13 % (04/19/23:21:00) Platelet: 170 E9/L (04/19/23:21:00) MPV: 7.2 fL (04/19/23:21:00) Neutro Auto: 61.6 % (04/19/23 09:21:00) Lymph Auto: 24.7 % (04/19/23 09:21:00) Glynn Auto: 8.5 % (04/19/23:21:00) Eos Auto: 4.1 % (04/19/23:21:00) Basophil Auto: 1.1 % (04/19/23:21:00) Neutro Absolute: 4.1 E9/L (04/19/23 09:21:00) Lymph Absolute: 1.6 E9/L (04/19/23 09:21:00) Glynn Absolute: 0.6 E9/L (04/19/23 09:21:00) Eos Absolute: 0.3 E9/L (04/19/23:21:00) Basophil Absolute: 0.1 E9/L (04/19/23:21:00) PT: 10.3 second(s) (04/19/23 09:21:00) INR: 0.9 (04/19/23 09:21:00) PTT: 33.2 second(s) (04/19/23 09:21:00) Glucose Lvl: 207 mg/dL High (04/19/23 09:21:00) BUN: 16 mg/dL (04/19/23 09:21:00) Creatinine: 1.1 mg/dL (04/19/23 09:21:00) eGFR: 78 mL/min/1.73 m2 (04/19/23 09:21:00) BUN/Creat Ratio: 14 (04/19/23 09:21:00) Sodium Lvl: 138 mmol/L (04/19/23 09:21:00) Potassium Lvl: 3.8 mmol/L (04/19/23 09:21:00) Chloride: 104 mmol/L (04/19/23 09:21:00) CO2: 27 mmol/L (04/19/23 09:21:00) AGAP: 11 mEq/L (04/19/23 09:21:00) Calcium Lvl: 9 mg/dL (04/19/23 09:21:00) Troponin: 2.6 pg/mL Low (04/19/23 09:21:00) Glucose Cap: 183 mg/dL High (04/19/23 09:14:00) POC Device SN: [id number] (04/19/23 09:14:00) POC User ID: [id number] (04/19/23 09:14:00) POC Username: [email or web address] CARRASQUILLO (04/19/23 09:14:00) Images (04/19/2023 09:[address] Head or Brain w/o Contrast) * Final Report * Reason For Exam Neuro deficit, acute, stroke suspected POWERSCRIBE REPORT IMPRESSION: NO ACUTE INTRACRANIAL PROCESS IDENTIFIED. EXAM: CT Head or Brain w/o Contrast DATE: (more content not included)...[facility] Hospital[facility] on above:Result Comment: Electronically Signed By: KARL FELDMAN, Kay\.scottie\Date and Time Signed: 04/19/23 11:[id number] Evaluation + Plan note Future Scheduled Tests Laboratory* HgbA1c 08/18/21 * Microalbumin/Creatinine Ratio 08/18/21 * CBC w/ Auto Diff 08/18/21 * Comprehensive Metabolic Panel 08/18/21 * Lipid Panel 08/18/21 [facility]22 Hospital Discharge instructions Patient Education 08/18/2021 08:05:47 Diabetes Mellitus and Exercise Diabetes Mellitus and Exercise Exercising regularly is important for your overall health, especially when you have diabetes (diabetes mellitus). Exercising is not only about losing weight. It has many other health benefits, such as increasing muscle strength and bone density and reducing body fat and stress. This leads to improved fitness, flexibility, and endurance, all of which result in better overall health. Exercise has additional benefits for people with diabetes, including: Reducing appetite. Helping to lower and control blood glucose. Lowering blood pressure. Helping to control amounts of fatty substances (lipids) in the blood, such as cholesterol and triglycerides. Helping the body to respond better to insulin (improving insulin sensitivity). Reducing how much insulin the body needs. Decreasing the risk for heart disease by: ?Lowering cholesterol and triglyceride levels. ?Increasing the levels of good cholesterol. ?Lowering blood glucose levels. What is my activity plan? Your health care provider or certified orthotic fitter can help you make a plan for the type and frequency of exercise (activity plan) that works for you. Make sure that you: Do at least 150 minutes of moderate-intensity or vigorous-intensity exercise each week. This could be brisk walking, biking, or water aerobics. ?Do stretching and strength exercises, such as yoga or weightlifting, at least 2 times a week. ?Spread out your activity over at least 3 days of the week. Get some form of physical activity every day. ?Do not go more than 2 days in a row without some kind of physical activity. ?Avoid being inactive for more than 30 minutes at a time. Take frequent breaks to walk or stretch. Choose a type of exercise or activity that you enjoy, and set realistic goals. Start slowly, and gradually increase the intensity of your exercise over time. What do I need to know about managing my diabetes? Check your blood glucose before and after exercising. ?If your blood glucose is 240 mg/dL (13.3 mmol/L) or higher before you exercise, check your urine for ketones. If you have ketones in your urine, do not exercise until your blood glucose returns to normal. ?If your blood glucose is 100 mg/dL (5.6 mmol/L) or lower, eat a snack containing 15 20 grams of carbohydrate. Check your blood glucose 15 minutes after the snack to make sure that your level is above 100 mg/dL (5.6 mmol/L) before you start your exercise. Know the symptoms of low blood glucose (hypoglycemia) and how to treat it. Your risk for hypoglycemia increases during and after exercise. Common symptoms of hypoglycemia can include: ?Hunger. ?Anxiety. ?Sweating and feeling clammy. ?Confusion. ?Dizziness or feeling light-headed. ?Increased heart rate or palpitations. ?Blurry vision. ?Tingling or numbness around the mouth, lips, or tongue. ?Tremors or shakes. ?Irritability. Keep a rapid-acting carbohydrate snack available before, during, and after exercise to help preventor treat hypoglycemia. Avoid injecting insulin into areas of the body that are going to be exercised. For example, avoid injecting insulin into: ?The arms, when playing tennis. ?The legs, when jogging. Keep records of your exercise habits. Doing this can help you and your health care provider adjust your diabetes management plan as needed. Write down: ?Food that you eat before and after you exercise. ?Blood glucose levels before and after you exercise. ?The type and amount of exercise you have done. ?When your insulin is expected to peak, if you use insulin. Avoid exercising at times when your insulin is peaking. When you start a new exercise or activity, work with your health care provider to make sure the activity is safe for you, and to adjust your insulin, medicines, or food intake as needed. Drink plenty of water while you exercise to prevent dehydration or heat stroke. Drink enough fluid to keep your urine clear or pale yellow. Summary Exercising regularly is important for your overall health, especially when you have diabetes (diabetes mellitus). Exercising has many health benefits, such as increasing muscle strength and bone density and reducing body fat and stress. Your health care provider or certified orthotic fitter can help you make a plan for the type and frequency of exercise (activity plan) that works for you. When you start a new exercise or activity, work with your health care provider to make sure the activity is safe for you, and to adjust your insulin, medicines, or food intake as needed. This information is not intended to replace advice given to you by your health care provider. Make sure you discuss any questions you have with your health care provider. Document Released: 05/17/2004 Document Revised: 09/19/2017 Document Reviewed: 08/06/2016 [email or web address] Patient Education 2019 [employer] Follow Up Care 06/26/2021 14:24:25 With:JANETH FELDMAN, Maria Antonia Tellez, MED Address: [facility] [address], [place] [address]- When:Within 6 Month(s) [facility] 11-23-2021 Evaluation + Plan note Future Scheduled Tests Laboratory* HgbA1c 01/31/21 * PSA Screen, Total 01/31/21 * CBC w/ Auto Diff 01/31/21 * Comprehensive Metabolic Panel 01/31/21 * Lipid Panel 01/31/21 * Thyroid Stimulating Hormone 01/31/21 [facility]05-05-2021 NoteHNO ID: [id number] Author: Preeti Schultz MD Service: ? Author Type: Physician Type: Progress Notes Filed: 07/13/2020 4:54 PM Note Text: History and Physical Assessment Patient Name: Maria Antonia Ball MR #: [id number] Age: [age] year old Date: July 11, 2020 Referred by: Dr. Guerin Chief Complaint: This patient is a 55 year old male who presents today with complaints of back pain. 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 Started originally 9 months ago. Was treated with Motrin, flexeril Previous Treatments: OTC Meds: Tylenol Effect: no relief Prescription Meds: steroids and muscle relaxers Effect: no relief General: no relief. Effect: no relief Assistive Devices: NA Physical Therapy: Yes. Effect: relief Injection(s): epidural injection. Effect: no relief Previous Surgery: No Imaging Results: xr lumbar 10/17/2019 This Episode: Date of Onset for this episode: 9 months ago Pattern: Constant. Character: Burning and Aching. Severity: VAS Pain: 5/10 Current; 10/10 Worst; 5/10 Best. Location: low back Radiation: radiating to left leg sometimes. Exacerbating Factors: Bending, Walking and Standing. Alleviating Factors: Nothing makes my pain better . Associated Signs/Symptoms: Sleep disturbance; awakens during night due to pain. Sensory/Motor Changes: Tingling or Numbness. Progressive Weakness?: No. AM Stiffness?: Yes. Duration: constant. Changes in Bowel/Bladder Control?: No. Location of Joint Swelling: Not Applicable. Location of Joint Pain: Low Back. Effects of Pain: Personal Care: Independent . Household Tasks: Independent . Job Functions: Independent . Review of Systems: General Appearance: well developed, well groomed and pleasant. General: Normal/Negative. Skin: Normal/Negative. Heart/Lungs: Normal/Negative. GI: Normal/Negative. /COMMUNITY SUPPORT SPECIALIST: Normal/Negative. Heme: Normal/Negative. Endo: diabetes and Normal/Negative. Neuro: depression. HEENT: Normal/Negative Skeletal: muscle weakness and muscle pains. No past medical history on file. No past surgical history on file. Social History Tobacco Use - Smoking status: Never Smoker - Smokeless tobacco: Never Used Substance Use Topics - Alcohol use: Not on file - Drug use: Not on file No family history on file.[id number] Allergies: ALLERGIES Allergen Reactions - Penicillins Vomiting Current Outpatient Medications: metFORMIN (GLUCOPHAGE) 1,000 mg tablet Take 500 mg by mouth three times daily. cyclobenzaprine (FLEXERIL) 10 mg tablet Take 1 tablet by mouth every 8 hours as needed for Muscle Spasm (or pain). Is patient on blood thinners? No Patient feels safe at home: Yes Education Associate: Loli Constantino Ma Patient is a 55-year-old white male self-referred for a second opinion. Patient injured his back in the job in October 2019 and has been experiencing back pain since his injury. Patient denies any previous history of back pain before that incidence He states following his injury he was evaluated and diagnosed with lumbar sprain. He was treated conservatively with Motrin and Flexeril however he continue experiencing residual pain that required further investigation. He had an MRI done and he was seen by pain management in [facility]. Patient also had 1 epidural steroid injection which was not associated with any major pain relief. Currently he is experiencing mostly axial pain. This pain is localized to the lumbar area. Most of the pain is localized to the midline and travel up and down the spine. It is associated with sensory changes and [id number] in the anterior aspect of the left thigh. Patient also feels some weakness in the left lower extremity. He stated that the pain is there all the time however it gets much worse with any kind of activities especially changing position even from sitting to standing or from standing to sitting. Bending is also associated with remarkable exacerbation of the pain. He denies any bowel or bladder disturbance. Patient has been doing physical therapy with this is partially helping. He is currently on [id number] anti-inflammatories and cyclobenzaprine. Past medical history, past surgical history, family history, social history, allergies, medication, and review of system will all reviewed On exam alert oriented pleasant white male no acute distress. Vital signs stable. Head normocephalic with no evidence of trauma. Pupils are round equal reactive to light and accommodation. Neck was supple with no JVD. Range of movement of the cervical spine slightly limited patient complained of pain in the mid and lower back with some of the neck movement. Palpation of the neck and shoulder muscle revealed minor tenderness. Motor function in the upper extremity could not be tested accurately because of the movement of the upper extremity were eliciting pain in (more content not included)...[facility] Future App[facility]ments Appointment Date:10/04/2021 11:00:00 AM Scheduled Provider:Maria Antonia FELIX MD Location:[facility] Appointment Type:FM [facility] Future Appointments Appointment Date:02/06/2022 04:00:00 PM Scheduled Provider:Maria Antonia FELIX MD Location:[facility] Appointment Type:FM Open Future Scheduled Tests Laboratory* HgbA1c 08/18/21 * Microalbumin/Creatinine Ratio 08/18/21 * CBC w/ Auto Diff 08/18/21 * Comprehensive Metabolic Panel 08/18/21 * Lipid Panel 08/18/21 [facility] Evaluation + Plan note Future Appointments Appointment Date:10/18/2021 01:45:00 PM Scheduled Provider:Ernst Watkins [facility] Type:Cardiology Follow Up (FT) Appointment Date:02/06/2022 04:00:00 PM Scheduled Provider:Maria Antonia FELIX MD Location:[facility] Appointment Type:FM Open Diagnostic Tests Pending * C-Peptide 10/10/21 Future Scheduled Tests Laboratory* HgbA1c 08/18/21 * Microalbumin/Creatinine Ratio 08/18/21 * CBC w/ Auto Diff 08/18/21 * Comprehensive Metabolic Panel 08/18/21 * Lipid Panel 08/18/21 [facility] App[facility]ments Appointment Date:02/06/2022 04:00:00 PM Scheduled Provider:Maria Antonia FELIX MD Location:[facility] Appointment Type:FM Open Appointment Date:04/25/2022 03:00:00 PM Scheduled Provider:Ernst Watkins [facility] Type:Cardiology Follow Up (FT) Future Scheduled Tests Laboratory* HgbA1c 08/18/21 * Microalbumin/Creatinine Ratio 08/18/21 * CBC w/ Auto Diff 08/18/21 * Comprehensive Metabolic Panel 08/18/21 * Lipid Panel 08/18/21 [facility] Appointments Appointment Date:07/23/2022 09:20:00 AM Scheduled Provider:Maria Antonia FELIX MD Location:[facility] Appointment Type:FM [facility] Future Appointments Appointment Date:07/05/2023 02:20:00 PM Scheduled Provider:Maria Antonia FELIX MD Location:[facility] Appointment Type:FM [facility] Future Appointments Appointment Date:07/13/2024 02:00:00 PM Scheduled Provider:Maria Antonia FELIX MD Location:[facility] Appointment Type:FM Preventative Visit Future Scheduled Tests Radiology* US Liver 07/05/23 [facility] Evaluation + Plan note Future Appointments Appointment Date:11/27/2023 02:15:00 PM Scheduled Provider:Jorge SOLITARIO MD Location:[facility] Appointment Type:URO New Patient Appointment Date:07/13/2024 02:00:00 PM Scheduled Provider:Maria Antonia FELIX MD Location:[facility] Appointment Type:FM [facility] Future Appointments Appointment Date:07/13/2024 02:00:00 PM Scheduled Provider:Maria Antonia FELIX MD Location:[facility] Appointment Type:FM Preventative Visit [facility] Evaluation + Plan note Future Appointments Appointment Date:12/30/2023 08:00:00 AM Scheduled Provider: Location:[facility] Appointment Type:URO Nurse Visit Appointment Date:01/20/2024 03:15:00 PM Scheduled Provider:Juno REDDY MD Location:[facility] Appointment Type:URO Office Visit Appointment Date:07/13/2024 02:00:00 PM Scheduled Provider:Maria Antonia FELIX MD Location:[facility] Appointment Type:FM Preventative Visit [facility] Hospital course Narrative No data available for this section [facility] No data available for this section [facility] No data available for this section [facility]ative) , had TIA in seen in the hospital Referred by: Maria Antonia FELIX MD Referred by: Maria Antonia FELIX MD [facility] Summary Purpose Family History No Family History Records Found Relationship Condition Age at Onset Recorded Date/T karley Not Specified Malignant neoplasm of lung Unknown father Malignant neoplasm of lung Unknown sister Diabetes mellitus Unknown Advance Directives No Advanced Directives Records Found Advance Directive Response Recorded Date/ Time Advance Directives No January 8:44pm Chief Complaint and Reason for Visit Chief Complaint Early Satiety, Nause a, Gerd, Abdominal Pain Early Satiety, Nausea, Gerd, Abdominal Pain Reason for Visit GERD (gastroesophage al reflux disease) Assessments Diagnosis Onset Date Resolution Status GERD (gastroesophageal reflux disease) acute Additional Source Comments (unrecognized sect ion and content) No Status Records FoundNo Status Records FoundNo Status Records FoundNo Status Records FoundNo Status Records Found INFORMATION SOURCE (unrecogn ized section and content) DATE CREATED AUTHOR 10/17/2019 [facility] DATE CREATED AUTHOR AUTHOR'S ORGANIZ ATION 03/20/2021 [facility] DATE CREATED AUTHOR AUTHOR'S ORGANIZ ATION 04/11/2021 [facility] DATE CREATED AUTHOR AUTHOR'S ORGANIZ ATION 08/15/2023 [facility] DATE CREATED AUTHOR AUTHOR'S ORGANIZ ATION 12/14/2023 [facility] Care Team (unrecognized sect ion and content) Personnel Name: Maria Antonia FELIX MD Address: [place] [address], [address] [place], [facility]- Personnel Name: Maria Antonia FELIX MD Address: [place] [address], [address] [place], [facility]- Personnel Name: Maria Antonia FELIX MD Address: Address: [place] [address] [place], [facility]- Personnel Name: Maria Antonia FELIX MD Address: Address: [place] [address] [place], [facility]- Personnel Name: Maria Antonia FELIX MD Address: Address: [place] [address] [place], [facility]- Personnel Name: Maria Antonia FELIX MD Address: Address: [place] [address] [place], [facility] Personnel Name: Maria Antonia FELIX MD Address: Address: [place] [address] [place], [facility]- Personnel Name: Maria Antonia FELIX MD Address: Address: [place] [address] [place], [facility] Personnel Name: Maria Antonia FELIX MD Address: Address: [place] [address], [address] [place], [facility] Personnel Name: Maria Antonia FELIX MD Address: Address: [place] [address] [place], [facility] Personnel Name: Maria Antonia FELIX MD Address: Address: [place] [address] [place], [facility] FOR RECORDS PERTAINING TO PATIENTS WHO ARE OR HAVE BEEN ENROLLED IN A CHEMICAL DEPENDENCY/SUBSTANCEABUSE PROGRAM, SOME INFORMATION MAY BE OMITTED. This clinical summary was aggregated from multiple sources. Caution should be exercised in using it in the provision of clinical care. This summary normalizes information from multiple sources, and as a consequence, information in this document may materially change the coding, format and clinical context of patient data. In addition, data may be omitted in some cases. CLINICAL DECISIONS SHOULD BE BASED ON THE PRIMARY CLINICAL RECORDS. [facility]. provides no warranty or guarantee of the accuracy or completeness of information in this document.
[2023-12-26] MEDS: LACTATED RINGER'S SOLUTION 1,000 ML 50 ML IV (13:24)
[2023-12-26 14:37] LABS: Glucometer 121 mg/dL (74-106)
[2023-12-26] MEDS: LEVOFLOXACIN IN DEXTROSE 5 % 500 MG/100 ML PREMIX 100 MG IV (14:52)
--- NOTE | 2023-12-26 16:54 | PM.URSON ---
Urology Surgery Operative Note Operative Note Procedure Date: 12/26/23 Time Out Performed: yes Pre-op Diagnosis: BPH with LUTS refractory to medications Post-op Diagnosis: same as pre-op Procedures performed: 1. Cystoscopy. 2. Transurethral resection of the prostate Anesthesia: NESHA Primary Surgeon: Juno Abreu Complications: None Estimated blood loss (mL): 20 Findings: Obstructing lateral lobes, high median bar, purulence pockets and prostate. Specimens: Prostate chips Drains: 22 Nepalese three-way coud? Sinha catheter in the bladder taped to traction and CBI Indications for Procedures: This gentleman has BPH with LUTS refractory to medications. Urodynamically he is obstructed. Endoscopically he is obstructed with high-grade bladder damage. He is desirous for TURP. He has signed an informed consent for this procedure after all the risks were explained to him. Some of these risks include bleeding, infection, anesthesia, urinary incontinence both temporary and permanent, erectile dysfunction, retrograde ejaculation, persistent voiding difficulties, possible need for further procedures on his prostate just to name a few. Detailed description of Procedure: The patient was brought to the operating room and placed on the operating room table in the supine position. SCDs were placed on the lower extremities and turned on and functioning during the entire case. Timeout was done by all parties in the room. We all agreed upon the patient's identification and the planned procedures for this patient. Genn. anesthesia was then administered. The patient was then repositioned into the modified dorsal lithotomy position. All pressure points were satisfactorily padded. Genitalia were sterilely prepped and draped in usual fashion. I started by passing a 26 Nepalese Olympus resectoscope with a standard bipolar loop electrode per urethra and into the bladder. The ureteral orifices were marked with the loop electrode. I then started on the median lobe and uniformly resected this down to the bladder neck level. His median bar was rather high. I then resected posteriorly from the bladder neck to the Veru level. The left lateral lobe was then resected similarly and there were purulence pockets that were unroofed. The right lateral lobe and the anterior tissue were then also resected similarly. More purulence pockets were unroofed from the lateral lobes and the anterior tissue. The apex was then opened up. The apex protruded distal to the Veru. I opened up the coapting apical lobes. The coagulation loop electrode was used to maintain hemostasis. The Ilich evacuator was used to get all of the prostate chips out of the bladder and these were sent for permanent sections. Upon completion with the scope at the apex the prostatic urethra and bladder neck were now wide open. There were no chips in the bladder. There was no bleeding. The ureteral orifices were spared. The scope was then removed. I then placed a 22 Nepalese three-way coud? Sinha in the bladder. It was manually irrigated with a 60 cc syringe to verify placement. 30 cc of fluid was placed in the balloon. It was taped to traction and CBI was started. Irrigated to a clear to light pink color. The anesthetic was then reversed. He was then transferred to a rrodanthe bed and wheeled to PACU in stable condition.
[2023-12-26] MEDS: SOLIFENACIN SUCCINATE 10 MG TABLET PO (17:10)
[2023-12-26] MEDS: SODIUM CHLORIDE IRRIG SOLUTION 3,000 ML 3000 ML IRR ×6 (17:24→23:25)
[2023-12-26] MEDS: HYDROCODONE/ACET 5-325 MG TABLET 1 TAB PO ×2 (17:48→21:33)
[2023-12-26] MEDS: 0.9 % SODIUM CHLORIDE 1,000 ML 80 ML IV (17:49)
--- NOTE | 2023-12-26 18:43 | PC.NURSE ---
patient expressing significant pain in his groin area. Like his bladder feels full , RN bladder scanned and was reading nothing in his bladder. Patient reassured everything is flowing as it should
[2023-12-26] MEDS: METFORMIN HCL 500 MG TABLET PO (19:04)
[2023-12-26] MEDS: TEMAZEPAM 15 MG CAPSULE PO (21:33)
[2023-12-26] MEDS: CEFAZOLIN SODIUM/DEXTROSE,ISO 1 GM/50 ML PREMIX IV (21:34)
[2023-12-27] MEDS: CEFAZOLIN SODIUM/DEXTROSE,ISO 1 GM/50 ML PREMIX IV (02:05)
[2023-12-27] MEDS: HYDROCODONE/ACET 5-325 MG TABLET 1 TAB PO ×2 (02:06→06:29)
[2023-12-27] MEDS: SODIUM CHLORIDE IRRIG SOLUTION 3,000 ML 3000 ML IRR (02:08)
[2023-12-27 04:00] VITALS: BP 111/72; PULSE 64; TEMP 36.6; O2SAT 94
[2023-12-27 08:40] VITALS: BP 105/53; PULSE 80; TEMP 36.9; O2SAT 95
[2023-12-27] MEDS: FOLIC ACID/VIT B6/VIT B12 TABLET 1 TAB PO (09:31)
[2023-12-27] MEDS: METFORMIN HCL 500 MG TABLET PO (09:31)
[2023-12-27] MEDS: ASPIRIN 81 MG TABLET.DR PO (09:31)
[2023-12-27] MEDS: CANAGLIFLOZIN 100 MG TABLET 300 MG PO (09:31)
[2023-12-27] MEDS: SOLIFENACIN SUCCINATE 5 MG TABLET 10 MG PO (10:30)
== END 2023-12-27 11:01 | disposition home or self-care (01) ==
LOC: SURGOUT 16:47 → MS 17:27
PROVIDERS: Family Provider Emergency Medicine; PCP Internal Medicine; Visit Provider Urology
PROC: (CPT 914; principal; 2023-12-26 14:25)
DX: N40.1 Benign prostatic hyperplasia with lower urinary tract symptoms (principal); R97.20 Elevated prostate specific antigen [PSA]; E78.5 Hyperlipidemia, unspecified; Z86.73 Personal history of transient ischemic attack (TIA), and cerebral infarction without residual deficits; E11.9 Type 2 diabetes mellitus without complications; Z79.84 Long term (current) use of oral hypoglycemic drugs; Z87.891 Personal history of nicotine dependence; K21.9 Gastro-esophageal reflux disease without esophagitis
CPT/HCPCS: 52601; 36415; 82948; 88305; 88344; 96365; J0690; J2405; J2704; J3010